=== PATIENT | female | born 2005 | race Caucasian/White ===

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

== ENCOUNTER 2023-09-03 10:56 | Emergency (ER) | payer BC, MEDICAID, OTHER ==
[2023-09-03] MEDS ORDERED: METOCLOPRAMIDE 5 MG/ML 2 ML VIAL IVP STA (11:19)
[2023-09-03] MEDS ORDERED: FAMOTIDINE 20 MG/2 ML VIAL IV STA (11:19)
[2023-09-03] MEDS ORDERED: SODIUM CHLORIDE 0.9% 500 ML 500 ML IV STA (11:19)
[2023-09-03] MEDS ORDERED: SODIUM CHLORIDE 0.9% 1,000 ML IV STA (11:19)
[2023-09-03] MEDS ORDERED: KETOROLAC 15 MG/ML 1 ML VIAL IVP STA (11:19)
[2023-09-03] MEDS ORDERED: diphenhydrAMINE 50 MG/ML 1 ML VIAL IVP STA (11:19)
--- NOTE | 2023-09-03 11:45 | ED ---
Nausea/Vomiting/Diarrhea HPI - General Chief complaint: Nausea/Vomiting/Diarrhea Stated complaint: throwing up about 5 days Time Seen by Provider: 09/03/23 11:03 Source: patient, RN notes reviewed Mode of arrival: ambulatory Limitations: no limitations - History of Present Illness Initial comments: 18-year-old female presents emergency Department chief complaint nausea vomiting 4-5 days. Patient states that this recurrent issue. Patient states that she's never had a EGD. She went of mild epigastric pain but states this only started with nausea vomiting. Pain started after several episodes of emesis denies any hematemesis or coffee-ground emesis denies any melanotic stools denies any chance denies chest pain or any other associated symptoms - Related Data Home Medications Medication Instructions Recorded Confirmed OLANZapine ODT [ZyPREXA ZYDIS] 5 mg PO BID 10/19/21 10/19/21 Previous Rx's Medication Instructions Recorded Prochlorperazine [Compazine] 10 mg PO Q6H #15 tab 09/03/23 Allergies Allergy/AdvReac Type Severity Reaction Status Date / Time Milk Containing Products AdvReac Diarrhea Verified 09/03/23 11:02 (Dairy) [Dairy] Review of Systems ROS Statement: Those systems with pertinent positive or pertinent negative responses have been documented in the HPI. ROS Other: All systems not noted in ROS Statement are negative. Past Medical History Past Medical History: No Reported History, Asthma History of Any Multi-Drug Resistant Organisms: None Reported Past Surgical History: Tonsillectomy Additional Past Anesthesia/Blood Transfusion Reaction / Comment(s): NO PROBLEMS WITH ANESTHESIA Past Psychological History: No Psychological Hx Reported, ADD/ADHD Smoking Status: Never smoker, Vaper Past Alcohol Use History: Occasional Past Drug Use History: Marijuana - Past Family History Mother Family Medical History: No Reported History Father Family Medical History: No Reported History General Exam Limitations: no limitations General appearance: alert, in no apparent distress Head exam: Present: atraumatic, normocephalic, normal inspection Eye exam: Present: normal appearance, PERRL, EOMI. Absent: scleral icterus, conjunctival injection, periorbital swelling ENT exam: Present: normal exam, normal oropharynx, mucous membranes moist Neck exam: Present: normal inspection, full ROM. Absent: tenderness, meningismus, lymphadenopathy Respiratory exam: Present: normal lung sounds bilaterally. Absent: respiratory distress, wheezes, rales, rhonchi, stridor Cardiovascular Exam: Present: regular rate, normal rhythm, normal heart sounds. Absent: systolic murmur, diastolic murmur, rubs, gallop, clicks GI/Abdominal exam: Present: soft, tenderness (Epigastric), normal bowel sounds. Absent: distended, guarding, rebound, rigid Back exam: Absent: CVA tenderness (R), CVA tenderness (L) Neurological exam: Present: alert Course Vital Signs 09/03/23 09/03/23 09/03/23 10:59 11:42 14:08 Temperature 98.2 F 98.1 F Pulse Rate 62 59 L 53 L Respiratory 20 18 Rate Blood Pressure 129/85 129/84 132/85 O2 Sat by Pulse 99 99 Oximetry Medical Decision Making - Medical Decision Making Was pt. sent in by a medical professional or institution (, PA, ADVISOR [employer], urgent care, hospital, or shelter...) When possible be specific @ -No Did you speak to anyone other than the patient for history (EMS, parent, family, police, friend...)? What history was obtained from this source @ -No Did you review nursing and triage notes (agree or disagree)? Why? @ -I reviewed and agree with nursing and triage notes Were old charts reviewed (outside hosp., previous admission, EMS record, old EKG, old radiological studies, urgent care reports/EKG's, shelter records)? Report findings @ -Reviewed prior laboratory studies Differential Diagnosis (chest pain, altered mental status, abdominal pain women, abdominal pain men, vaginal bleeding, weakness, fever, dyspnea, syncope, headache, dizziness, GI bleed, back pain, seizure, CVA, palpatations, mental health, musculoskeletal)? @ -Differential Abdominal Pain Women: Appendicitis, Cholecystitis, diverticulosis, ischemic bowel, pancreatitis, hepatitis, UTI, gastroenteritis, AAA, incarcerated hernia, bowel obstruction, constipation, inflammatory bowel, hepatitis, peptic ulcer disease, splenic infar ction, perforated viscus, vulvitis, ovarian torsion, PID, kidney stone, placenta abruption, this is not meant to be an all-inclusive list EKG interpreted by me (3pts min.). @ -Discharged X-rays interpreted by me (1pt min.). @ -None done CT interpreted by me (1pt min.). @ -None done U/S interpreted by me (1pt. min.). @ -None done What testing was considered but not performed or refused? (CT, X-rays, U/S, labs)? Why? @ -Considered CT though patient has no localized abdominal pain What meds were considered but not given or refused? Why? @ -None Did you discuss the management of the patient with other professionals (professionals i.e. Dr., PA, [employer], lab, RT, psych nurse, mental health social worker, spindle setter, teacher, gift officer, rehabilitation caseworker)? Give summary @ -No Was smoking cessation discussed for >3mins.? @ -No Was critical care preformed (if so, how long)? @ -No Were there social determinants of health that impacted care today? How? (Homeles sness, low income, unemployed, alcoholism, drug addiction, transportation, low edu. Level, literacy, decrease access to med. care, senior care, rehab)? @ -No Was there de-escalation of care discussed even if they declined (Discuss DNR or withdrawal of care, Hospice)? DNR status @ -No What co-morbidities impacted this encounter? (DM, HTN, Smoking, COPD, CAD, Cancer, CVA, ARF, Chemo, Hep., AIDS, mental health diagnosis, sleep apnea, morbid obesity)? @ -Marijuana use Was patient admitted / discharged? Hospital course, mention meds given and route, prescriptions, significant lab abnormalities, going to OR and other pertinent info. @ -[Discharge patient was well hydrated, given antiemetics vomiting has subsided. We discussed this may related to marijuana use as this is a recurrent ongoing issue. She will follow-up with GI she is advised to discontinue marijuana use. Undiagnosed new problem with uncertain prognosis? @ -No Drug Therapy requiring intensive monitoring for toxicity (Heparin, Nitro, Insulin, Cardizem)? @ -No Were any procedures done? @ -No Diagnosis/symptom? @ -Nausea vomiting Acute, or Chronic, or Acute on Chronic? @ -Acute Uncomplicated (without systemic symptoms) or Complicated (systemic symptoms)? @ -Uncomplicated Side effects of treatment? @ -No Exacerbation, Progression, or Severe Exacerbation? @ -No Poses a threat to life or bodily function? How? (Chest pain, [place], [place], pneumonia, PE, COPD, DKA, ARF, appy, cholecystitis, CVA, Diverticulitis, Homicidal, Suicidal, threat to staff... and all critical care pts) @ -No - Lab Data Result diagrams: 09/03/23 11:21 09/03/23 11:21 Lab Results 09/03/23 09/03/23 09/03/23 Range/Units 11:21 11:21 11:21 WBC 13.3 H (4.0-11.0) k/uL RBC 5.31 (3.80-5.40) m/uL Hgb 16.2 H (11.4-16.0) gm/dL Hct 49.1 H (34.0-46.0) % MCV 92.4 (80.0-100.0) fL MCH 30.4 (25.0-35.0) pg MCHC 32.9 (31.0-37.0) g/dL RDW 13.6 (11.5-15.5) % Plt Count 239 (150-450) k/uL MPV 9.1 Neutrophils % 84 % Lymphocytes % 10 % Monocytes % 4 % Eosinophils % 0 % Basophils % 0 % Neutrophils # 11.1 H (1.3-7.7) k/uL Lymphocytes # 1.3 (1.0-4.8) k/uL Monocytes # 0.5 (0-1.0) k/uL Eosinophils # 0.0 (0-0.7) k/uL Basophils # 0.0 (0-0.2) k/uL Sodium (137-145) mmol/L Potassium (3.5-5.1) mmol/L Chloride (98-107) mmol/L Carbon Dioxide (22-30) mmol/L Anion Gap mmol/L BUN (7-17) mg/dL Creatinine (0.52-1.04) mg/dL Est GFR (CKD-EPI)AfAm (>60 ml/min/1.73 sqM) Est GFR (CKD-EPI)NonAf (>60 ml/min/1.73 sqM) Glucose (74-99) mg/dL Calcium (8.4-10.2) mg/dL Total Bilirubin (0.2-1.3) mg/dL AST (14-36) U/L ALT (4-34) U/L Alkaline Phosphatase (38-126) U/L Total Protein (6.3-8.2) g/dL Albumin (3.5-5.0) g/dL Lipase (23-300) U/L Urine Color Yellow Urine Appearance Turbid H (Clear) Urine pH 8.0 (5.0-8.0) Ur Specific [place] 1.033 (1.001-1.035) Urine Protein 1+ H (Negative) Urine Glucose (UA) Negative (Negative) Urine Ketones 2+ H (Negative) Urine Blood Negative (Negative) Urine Nitrite Negative (Negative) Urine Bilirubin Negative (Negative) Urine Urobilinogen 3.0 (<2.0) mg/dL Ur Leukocyte Esterase Large H (Negative) Urine RBC 11 H (0-5) /hpf Urine WBC 81 H (0-5) /hpf Ur Squamous Epith Cells 48 H (0-4) /hpf Amorphous Sediment Moderate H (None) /hpf Urine Bacteria Few H (None) /hpf Urine Mucus Few H (None) /hpf Urine HCG, Qual Not Detected (Not Detectd) 09/03/23 Range/Units 11:21 WBC (4.0-11.0) k/uL RBC (3.80-5.40) m/uL Hgb (11.4-16.0) gm/dL Hct (34.0-46.0) % MCV (80.0-100.0) fL MCH (25.0-35.0) pg MCHC (31.0-37.0) g/dL RDW (11.5-15.5) % Plt Count (150-450) k/uL MPV Neutrophils % % Lymphocytes % % Monocytes % % Eosinophils % % Basophils % % Neutrophils # (1.3-7.7) k/uL Lymphocytes # (1.0-4.8) k/uL Monocytes # (0-1.0) k/uL Eosinophils # (0-0.7) k/uL Basophils # (0-0.2) k/uL Sodium 141 (137-145) mmol/L Potassium 4.3 (3.5-5.1) mmol/L Chloride 102 (98-107) mmol/L Carbon Dioxide 26 (22-30) mmol/L Anion Gap 13 mmol/L BUN 12 (7-17) mg/dL Creatinine 0.72 (0.52-1.04) mg/dL Est GFR (CKD-EPI)AfAm >90 (>60 ml/min/1.73 sqM) Est GFR (CKD-EPI)NonAf >90 (>60 ml/min/1.73 sqM) Glucose 110 H (74-99) mg/dL Calcium 10.1 (8.4-10.2) mg/dL Total Bilirubin 0.6 (0.2-1.3) mg/dL AST 19 (14-36) U/L ALT 17 (4-34) U/L Alkaline Phosphatase 96 (38-126) U/L Total Protein 7.9 (6.3-8.2) g/dL Albumin 4.9 (3.5-5.0) g/dL Lipase 67 (23-300) U/L Urine Color Urine Appearance (Clear) Urine pH (5.0-8.0) Ur Specific [place] (1.001-1.035) Urine Protein (Negative) Urine Glucose (UA) (Negative) Urine Ketones (Negative) Urine Blood (Negative) Urine Nitrite (Negative) Urine Bilirubin (Negative) Urine Urobilinogen (<2.0) mg/dL Ur Leukocyte Esterase (Negative) Urine RBC (0-5) /hpf Urine WBC (0-5) /hpf Ur Squamous Epith Cells (0-4) /hpf Amorphous Sediment (None) /hpf Urine Bacteria (None) /hpf Urine Mucus (None) /hpf Urine HCG, Qual (Not Detectd) Disposition Clinical Impression: Nausea & vomiting Disposition: HOME SELF-CARE Condition: Stable Instructions (If sedation given, give patient instructions): Acute Nausea and Vomiting (ED) Additional Instructions: Please return to the Emergency Department if symptoms worsen or any other concerns. Prescriptions: Prochlorperazine [Compazine] 10 mg PO Q6H #15 tab Is patient prescribed a controlled substance at d/c from ED?: No Referrals: Carolann Page [Primary Care Provider] - 1-2 days Lorraine Ross MD [STAFF PHYSICIAN] - 1-2 days Time of Disposition: 14:44
[2023-09-03 11:54] LABS: Basophils % (A) 0 %; Eosinophils % (A) 0 %; HCT 49.1 % (34.0-46.0); HGB 16.2 gm/dL (11.4-16.0); Lymphocytes # (A) 1.3 k/uL (1.0-4.8); Lymphocytes % (A) 10 %; MCH 30.4 pg (25.0-35.0); MCHC 32.9 g/dL (31.0-37.0); MCV 92.4 fL (80.0-100.0); Mean Platelet Volume 9.1; Monocytes # (A) 0.5 k/uL (0-1.0); Monocytes % (A) 4 %; Neutrophils # (A) 11.1 k/uL (1.3-7.7); Neutrophils % (A) 84 %; Platelet Count 239 k/uL (150-450); RBC 5.31 m/uL (3.80-5.40); RDW 13.6 % (11.5-15.5); WBC 13.3 k/uL (4.0-11.0)
[2023-09-03 11:55] VITALS: TEMP 98.1
[2023-09-03 12:02] LABS: Amorphous Sediment,Urine Moderate /hpf; Appearance,Urine Turbid (Clear); Bacteria,Urine Few /hpf; Bilirubin,Urine Negative (Negative); Blood,Urine Negative (Negative); Color,Urine Yellow; Glucose,Urine (UA) Negative (Negative); Ketones,Urine 2+ (Negative); Leukocyte Esterase,Urine Large (Negative); Mucus,Urine Few /hpf; Nitrite,Urine Negative (Negative); Protein,Urine 1+ (Negative); RBC,Urine 11 /hpf (0-5); Specific Gravity,Urine 1.033 (1.001-1.035); Squamous Epithelial Cell,Urine 48 /hpf (0-4); WBC,Urine 81 /hpf (0-5)
[2023-09-03 12:09] LABS: ALT 17 U/L (4-34); AST 19 U/L (14-36); African American GFR (CKD) >90 (>60 ml/min/1.73 sqM); Albumin 4.9 g/dL (3.5-5.0); Alkaline Phosphatase 96 U/L (38-126); Anion Gap 13 mmol/L; Blood Urea Nitrogen 12 mg/dL (7-17); Calcium 10.1 mg/dL (8.4-10.2); Carbon Dioxide 26 mmol/L (22-30); Chloride 102 mmol/L (98-107); Glucose 110 mg/dL (74-99); Lipase 67 U/L (23-300); Non-African American GFR(CKD) >90 (>60 ml/min/1.73 sqM); Potassium 4.3 mmol/L (3.5-5.1); Sodium 141 mmol/L (137-145); Total Bilirubin 0.6 mg/dL (0.2-1.3); Total Protein 7.9 g/dL (6.3-8.2)
[2023-09-03] MEDS ORDERED: droPERidol 5 MG/2 ML VIAL IVP ONE (13:52)
[2023-09-03 15:09] VITALS: BP 122/79; PULSE 85; RESP 16
== END 2023-09-03 15:06 | disposition home or self-care (01) ==
LOC: EC 10:56
DX: R11.2 Nausea with vomiting, unspecified (principal); J45.909 Unspecified asthma, uncomplicated; F90.9 Attention-deficit hyperactivity disorder, unspecified type; F17.290 Nicotine dependence, other tobacco product, uncomplicated; F12.90 Cannabis use, unspecified, uncomplicated; Z79.899 Other long term (current) drug therapy; Z91.011 Allergy to milk products
CPT/HCPCS: 36415; 80053; 83690; 85025; 81001; 81025; 99284; 96374; 96375 ×4; 96361; J1200; J2765; J3490; J1885; J1790

== ENCOUNTER 2023-09-15 20:11 | Inpatient (IN) | payer MEDICAID, OTHER ==
--- NOTE | 2023-09-15 21:42 | ED ---
General Adult HPI <Claudy Urban - Last Filed: 09/16/23 01:48> <Jt Pierre - Last Filed: 09/16/23 16:16> - General Source: patient, RN notes reviewed Mode of arrival: EMS <Inna Lou - Last Filed: 09/20/23 17:40> - General Chief complaint: Psychiatric Symptoms Stated complaint: Anxiety Time Seen by Provider: 09/15/23 20:24 - History of Present Illness Initial comments: 18-year-old female presents to the emergency department for sleeplessness x3 days. She states that she has not slept in multiple days and states "I feel like I am going to crash soon." Patient is hyperverbal in the room. She is concerned because she is and would like her baby to be checked out. She states that she believes she is around 4 weeks . Patient does have a history of bipolar disorder and was previously hospitalized for an episode similar to what she is experiencing today. She is currently not on any medications for her mental health. Denies fever, chills, nausea, abdominal pain, vaginal bleeding, cramping. (Inna Lou) - Related Data Home Medications Medication Instructions Recorded Confirmed Famotidine [Pepcid] 20 mg PO BID 09/16/23 09/16/23 Ondansetron Odt [Zofran Odt] 4 mg PO DAILY 09/16/23 09/16/23 cefUROXime axetiL [Ceftin] 500 mg PO DIRECTED 09/16/23 09/16/23 Allergies Allergy/AdvReac Type Severity Reaction Status Date / Time Milk Containing Products AdvReac Diarrhea Verified 09/03/23 11:02 (Dairy) [Dairy] Review of Systems ROS Other: All systems not noted in ROS Statement are negative. <Claudy Urban - Last Filed: 09/16/23 01:48> ROS Other: All systems not noted in ROS Statement are negative. <Jt Pierre - Last Filed: 09/16/23 16:16> ROS Other: All systems not noted in ROS Statement are negative. <Inna Lou - Last Filed: 09/20/23 17:40> ROS Statement: Those systems with pertinent positive or pertinent negative responses have been documented in the HPI. Past Medical History Past Medical History: No Reported History, Asthma History of Any Multi-Drug Resistant Organisms: None Reported Past Surgical History: Tonsillectomy Additional Past Anesthesia/Blood Transfusion Reaction / Comment(s): NO PROBLEMS WITH ANESTHESIA Past Psychological History: No Psychological Hx Reported, ADD/ADHD Smoking Status: Never smoker, Vaper Past Alcohol Use History: Occasional Past Drug Use History: Marijuana - Past Family History Mother Family Medical History: No Reported History Father Family Medical History: No Reported History <Inna Lou - Last Filed: 09/20/23 17:40> General Exam General appearance: anxious, other (hyperverbal) Head exam: Present: atraumatic, normocephalic, normal inspection Eye exam: Present: normal appearance, PERRL, EOMI. Absent: scleral icterus, con junctival injection, periorbital swelling ENT exam: Present: normal exam, mucous membranes moist Neck exam: Present: normal inspection. Absent: tenderness, meningismus, lymphadenopathy Respiratory exam: Present: normal lung sounds bilaterally. Absent: respiratory distress, wheezes, rales, rhonchi, stridor Cardiovascular Exam: Present: regular rate, normal rhythm, normal heart sounds. Absent: systolic murmur, diastolic murmur, rubs, gallop, clicks GI/Abdominal exam: Present: soft, normal bowel sounds. Absent: distended, tenderness, guarding, rebound, rigid Psychiatric exam: Present: manic Skin exam: Present: warm, dry, intact, normal color. Absent: rash <Inna Lou - Last Filed: 09/20/23 17:40> Course Vital Signs 09/15/23 09/16/23 09/17/23 20:17 07:42 10:00 Temperature 99.3 F 98.5 F Pulse Rate 136 H 53 L 68 Pulse Rate [ Left] Respiratory 21 26 H 16 Rate Blood Pressure 151/67 144/75 110/60 Blood Pressure [Left Arm] O2 Sat by Pulse 100 98 98 Oximetry 09/17/23 09/17/23 09/17/23 13:00 15:00 18:35 Temperature Pulse Rate 86 86 120 H Pulse Rate [ Left] Respiratory 20 16 20 Rate Blood Pressure 110/60 110/60 155/88 Blood Pressure [Left Arm] O2 Sat by Pulse 98 98 98 Oximetry 09/18/23 09/18/23 09/18/23 00:00 13:00 14:57 Temperature 98.1 F 98.5 F 98.3 F Pulse Rate 106 H 118 H Pulse Rate [ 108 H Left] Respiratory 18 16 18 Rate Blood Pressure 142/94 132/82 Blood Pressure 135/78 [Left Arm] O2 Sat by Pulse 97 100 99 Oximetry 09/19/23 08:00 Temperature Pulse Rate 114 H Pulse Rate [ Left] Respiratory 20 Rate Blood Pressure 131/87 Blood Pressure [Left Arm] O2 Sat by Pulse 98 Oximetry Procedures - Restraint - Face to Face Restraint Occurrence 1 Patient's Immediate Situation: Endangers self safety, Endangers others' safety, Endangers staff safety Patient's Reaction to the Intervention: Uncooperative, Hostile, Belligerent Patient's Medical & Behavioral Condition: Awake, Alert Need to Continue or Terminate Restraint or Seclusion: Continue Face to Face Eval of Restraint Date: 09/16/23 Face to Face Eval of Restraint Time: 22:20 <Claudy Urban - Last Filed: 09/16/23 01:48> Medical Decision Making - Lab Data Result diagrams: 09/16/23 01:09 <Claudy Urban - Last Filed: 09/16/23 01:48> - Lab Data Result diagrams: 09/16/23 01:09 09/16/23 01:09 <Jt Pierre - Last Filed: 09/16/23 16:16> - Lab Data Result diagrams: 09/20/23 10:06 09/20/23 10:06 <Inna Lou - Last Filed: 09/20/23 17:40> - Medical Decision Making I was notified by EPS the patient is awaiting specialized placement and a facility at [facility] that can handle manic patient's. Patient is a mental health hold until that time. (Jt Pierre) Was pt. sent in by a medical professional or institution (, PA, HEAD OF HUMAN RESOURCES, urgent care, hospital, or penitentiary...) When possible be specific @ -[No] Did you speak to anyone other than the patient for history (EMS, parent, family, police, friend...)? What history was obtained from this source @ -[No] Did you review nursing and triage notes (agree or disagree)? Why? @ -[I reviewed and agree with nursing and triage notes] Were old charts reviewed (outside hosp., previous admission, EMS record, old EKG, old radiological studies, urgent care reports/EKG's, penitentiary records)? Report findings @ -[No old charts were reviewed] Differential Diagnosis (chest pain, altered mental status, abdominal pain women, abdominal pain men, vaginal bleeding, weakness, fever, dyspnea, syncope, headache, dizziness, GI bleed, back pain, seizure, CVA, palpatations, mental health, musculoskeletal)? @ -[Differential Mental Health Depression, anxiety, bipolar, psychosis, schizophrenia, borderline personality, situational depression, adjustment disorder, behavioral disorder, brain tumor, malingering, substance abuse, encephalopathy, medication reaction, dementia, hypothyroidism, degenerative neurologic disorder, lupus.... This is not meant to be all-inclusive list] EKG interpreted by me (3pts min.). @ -[none] X-rays interpreted by me (1pt min.). @ -[None done] CT interpreted by me (1pt min.). @ -[None done] U/S interpreted by me (1pt. min.). @ -[None done] What testing was considered but not performed or refused? (CT, X-rays, U/S, labs)? Why? @ -[None] What meds were considered but not given or refused? Why? @ -[None] Did you discuss the management of the patient with other professionals (professionals i.e. , PA, HEAD OF HUMAN RESOURCES, lab, RT, psych nurse, social media content specialist, flume worker, teacher, textile technical officer, case aide)? Give summary @ -[EPS] Was smoking cessation discussed for >3mins.? @ -[No] Was critical care preformed (if so, how long)? @ -[No] Were there social determinants of health that impacted care today? How? (Homelessness, low income, unemployed, alcoholism, drug addiction, transportation, low edu. Level, literacy, decrease access to med. care, [place] [facility], rehab)? @ -[No] Was there de-escalation of care discussed even if they declined (Discuss DNR or withdrawal of care, Hospice)? DNR status @ -[No] What co-morbidities impacted this encounter? (DM, HTN, Smoking, COPD, CAD, Cancer, CVA, ARF, Chemo, Hep., AIDS, mental health diagnosis, sleep apnea, morbid obesity)? @ -[None] Was patient admitted / discharged? Hospital course, mention meds given and route, prescriptions, significant lab abnormalities, going to OR and other pertinent info. @ -[Patient presented to the emergency department for hyper activity, sleeplessness for the past 3-4 days. She has had a history of bipolar disorder and is not currently medicated. Patient states that she is around 4 weeks . She denies vaginal bleeding, cramping. Patient was given Benadryl and Haldol at the recommendation of the psychiatrist. Patient was evaluated by EPS nurse Sunshine who was working on transferring the patient to [facility] for jose care. ] Undiagnosed new problem with uncertain prognosis? @ -[No] Drug Therapy requiring intensive monitoring for toxicity (Heparin, Nitro, Insulin, Cardizem)? @ -[No] Were any procedures done? @ -[No] Diagnosis/symptom? @ -[acute jose] Acute, or Chronic, or Acute on Chronic? @ -[default] Uncomplicated (without systemic symptoms) or Complicated (systemic symptoms)? @ -[default] Side effects of treatment? @ -[No] Exacerbation, Progression, or Severe Exacerbation? @ -[No] Poses a threat to life or bodily function? How? (Chest pain, USA, MS, pneumonia, PE, COPD, DKA, ARF, appy, cholecystitis, CVA, Diverticulitis, Homicidal, Suicidal, threat to staff... and all critical care pts) @ -[No] (Inna Lou) - Lab Data Lab Results 09/15/23 09/15/23 09/16/23 Range/Units 23:46 23:46 01:09 WBC 19.5 H (4.0-11.0) k/uL RBC 4.69 (3.80-5.40) m/uL Hgb 14.5 (11.4-16.0) gm/dL Hct 42.6 (34.0-46.0) % MCV 90.9 (80.0-100.0) fL MCH 31.0 (25.0-35.0) pg MCHC 34.2 (31.0-37.0) g/dL RDW 13.3 (11.5-15.5) % Plt Count 188 (150-450) k/uL MPV 8.8 Neutrophils % 90 % Lymphocytes % 5 % Monocytes % 4 % Eosinophils % 0 % Basophils % 0 % Neutrophils # 17.6 H (1.3-7.7) k/uL Lymphocytes # 1.1 (1.0-4.8) k/uL Monocytes # 0.7 (0-1.0) k/uL Eosinophils # 0.0 (0-0.7) k/uL Basophils # 0.0 (0-0.2) k/uL Sodium (137-145) mmol/L Potassium (3.5-5.1) mmol/L Chloride (98-107) mmol/L Carbon Dioxide (22-30) mmol/L Anion Gap mmol/L BUN (7-17) mg/dL Creatinine (0.52-1.04) mg/dL Est GFR (CKD-EPI)AfAm (>60 ml/min/1.73 sqM) Est GFR (CKD-EPI)NonAf (>60 ml/min/1.73 sqM) Glucose (74-99) mg/dL Calcium (8.4-10.2) mg/dL Total Bilirubin (0.2-1.3) mg/dL AST (14-36) U/L ALT (4-34) U/L Alkaline Phosphatase (38-126) U/L Total Protein (6.3-8.2) g/dL Albumin (3.5-5.0) g/dL Urine Color yel Urine Appearance Cloudy H (Clear) Urine pH 5.5 (5.0-8.0) Ur Specific [place] >1.030 (1.001-1.035) Urine Protein 1+ H (Negative) Urine Glucose (UA) 3+ H (Negative) Urine Ketones 2+ H (Negative) Urine Blood Negative (Negative) Urine Nitrite Negative (Negative) Urine Bilirubin Negative (Negative) Urine Urobilinogen <2.0 (<2.0) mg/dL Ur Leukocyte Esterase Large (Negative) Urine RBC 23 H (0-5) /hpf Urine WBC 18 H (0-5) /hpf Ur Squamous Epith Cells 30 H (0-4) /hpf Urine Bacteria Rare H (None) /hpf Hyaline Casts 2 (0-2) /lpf Urine Mucus Occasional H (None) /hpf Urine HCG, Qual Detected (Not Detectd) Urine Opiates Screen Not Detected (NotDetected) Ur Oxycodone Screen Not Detected (NotDetected) Urine Methadone Screen Not Detected (NotDetected) Ur Propoxyphene Screen Not Detected (NotDetected) Ur Barbiturates Screen Not Detected (NotDetected) U Tricyclic Antidepress Not Detected (NotDetected) Ur Phencyclidine Scrn Not Detected (NotDetected) Ur Amphetamines Screen Not Detected (NotDetected) U Methamphetamines Scrn Not Detected (NotDetected) U Benzodiazepines Scrn Not Detected (NotDetected) Urine Cocaine Screen Not Detected (NotDetected) U Marijuana (THC) Screen Detected H (NotDetected) Coronavirus (PCR) (Not Detectd) 09/16/23 09/18/23 09/18/23 Range/Units 01:09 11:32 15:31 WBC (4.0-11.0) k/uL RBC (3.80-5.40) m/uL Hgb (11.4-16.0) gm/dL Hct (34.0-46.0) % MCV (80.0-100.0) fL MCH (25.0-35.0) pg MCHC (31.0-37.0) g/dL RDW (11.5-15.5) % Plt Count (150-450) k/uL MPV Neutrophils % % Lymphocytes % % Monocytes % % Eosinophils % % Basophils % % Neutrophils # (1.3-7.7) k/uL Lymphocytes # (1.0-4.8) k/uL Monocytes # (0-1.0) k/uL Eosinophils # (0-0.7) k/uL Basophils # (0-0.2) k/uL Sodium 136 L (137-145) mmol/L Potassium 3.9 (3.5-5.1) mmol/L Chloride 105 (98-107) mmol/L Carbon Dioxide 15 L (22-30) mmol/L Anion Gap 16 mmol/L BUN 8 (7-17) mg/dL Creatinine 0.59 (0.52-1.04) mg/dL Est GFR (CKD-EPI)AfAm >90 (>60 ml/min/1.73 sqM) Est GFR (CKD-EPI)NonAf >90 (>60 ml/min/1.73 sqM) Glucose 140 H (74-99) mg/dL Calcium 9.3 (8.4-10.2) mg/dL Total Bilirubin 0.6 (0.2-1.3) mg/dL AST 35 (14-36) U/L ALT 23 (4-34) U/L Alkaline Phosphatase 75 (38-126) U/L Total Protein 6.9 (6.3-8.2) g/dL Albumin 4.4 (3.5-5.0) g/dL Urine Color Colorless Urine Appearance Cloudy H (Clear) Urine pH 6.0 (5.0-8.0) Ur Specific [place] 1.012 (1.001-1.035) Urine Protein Negative (Negative) Urine Glucose (UA) Negative (Negative) Urine Ketones 1+ H (Negative) Urine Blood Negative (Negative) Urine Nitrite Negative (Negative) Urine Bilirubin Negative (Negative) Urine Urobilinogen <2.0 (<2.0) mg/dL Ur Leukocyte Esterase Large H (Negative) Urine RBC 17 H (0-5) /hpf Urine WBC 84 H (0-5) /hpf Ur Squamous Epith Cells 16 H (0-4) /hpf Urine Bacteria Rare H (None) /hpf Hyaline Casts (0-2) /lpf Urine Mucus Occasional H (None) /hpf Urine HCG, Qual (Not Detectd) Urine Opiates Screen (NotDetected) Ur Oxycodone Screen (NotDetected) Urine Methadone Screen (NotDetected) Ur Propoxyphene Screen (NotDetected) Ur Barbiturates Screen (NotDetected) U Tricyclic Antidepress (NotDetected) Ur Phencyclidine Scrn (NotDetected) Ur Amphetamines Screen (NotDetected) U Methamphetamines Scrn (NotDetected) U Benzodiazepines Scrn (NotDetected) Urine Cocaine Screen (NotDetected) U Marijuana (THC) Screen (NotDetected) Coronavirus (PCR) Not Detected (Not Detectd) Disposition <Claudy Urban - Last Filed: 09/16/23 01:48> <Jt Pierre - Last Filed: 09/16/23 16:16> <Inna Lou - Last Filed: 09/20/23 17:40> Clinical Impression: Jose, Disposition: ADMITTED IP TO THIS HOSP Condition: Stable
[2023-09-15] MEDS ORDERED: diphenhydrAMINE 50 MG/ML 1 ML VIAL IM ONE (21:50)
[2023-09-15] MEDS ORDERED: HALOPERIDOL LACTATE 5 MG/ML 1 ML VIAL IM ONE (21:50)
[2023-09-16 00:33] LABS: Appearance,Urine Cloudy (Clear); PH, Urine 5.5 (5.0-8.0); Protein,Urine 1+ (Negative); Specific Gravity,Urine >1.030 (1.001-1.035)
[2023-09-16 00:34] LABS: Glucose,Urine (UA) 3+ (Negative)
[2023-09-16 00:35] LABS: Bilirubin,Urine Negative (Negative); Blood,Urine Negative (Negative); Ketones,Urine 2+ (Negative); Leukocyte Esterase,Urine Large (Negative); Nitrite,Urine Negative (Negative); Urobilinogen,Urine <2.0 mg/dL (<2.0)
[2023-09-16 00:43] LABS: Bacteria,Urine Rare /hpf; Hyaline Casts,Urine 2 /lpf (0-2); Mucus,Urine Occasional /hpf; RBC,Urine 23 /hpf (0-5); Squamous Epithelial Cell,Urine 30 /hpf (0-4); WBC,Urine 18 /hpf (0-5)
[2023-09-16] MEDS ORDERED: SODIUM CHLORIDE 0.9% 1,000 ML IV ONE (00:56)
[2023-09-16 01:00] LABS: Amphetamine Screen,Urine Not Detected (NotDetected); Barbiturate Screen,Urine Not Detected (NotDetected); Benzodiazepines Screen,Urine Not Detected (NotDetected); Cocaine Screen,Urine Not Detected (NotDetected); Methadone Screen, Urine Not Detected (NotDetected); Opiate Screen,Urine Not Detected (NotDetected); Oxycodone Screen, Urine Not Detected (NotDetected); Phencyclidine Screen,Urine Not Detected (NotDetected); Tricyclic Antidepressant,Urine Not Detected (NotDetected); Urn Cannabinoid Scrn Detected (NotDetected)
[2023-09-16 01:21] LABS: Basophils % (A) 0 %; Eosinophils % (A) 0 %; HCT 42.6 % (34.0-46.0); HGB 14.5 gm/dL (11.4-16.0); Lymphocytes # (A) 1.1 k/uL (1.0-4.8); Lymphocytes % (A) 5 %; MCHC 34.2 g/dL (31.0-37.0); MCV 90.9 fL (80.0-100.0); Mean Platelet Volume 8.8; Monocytes # (A) 0.7 k/uL (0-1.0); Monocytes % (A) 4 %; Neutrophils # (A) 17.6 k/uL (1.3-7.7); Neutrophils % (A) 90 %; Platelet Count 188 k/uL (150-450); RBC 4.69 m/uL (3.80-5.40); RDW 13.3 % (11.5-15.5); WBC 19.5 k/uL (4.0-11.0)
[2023-09-16 02:05] LABS: Chloride 105 mmol/L (98-107)
[2023-09-16 02:08] LABS: ALT 23 U/L (4-34); AST 35 U/L (14-36); African American GFR (CKD) >90 (>60 ml/min/1.73 sqM); Albumin 4.4 g/dL (3.5-5.0); Alkaline Phosphatase 75 U/L (38-126); Anion Gap 16 mmol/L; Blood Urea Nitrogen 8 mg/dL (7-17); Calcium 9.3 mg/dL (8.4-10.2); Carbon Dioxide 15 mmol/L (22-30); Glucose 140 mg/dL (74-99); Non-African American GFR(CKD) >90 (>60 ml/min/1.73 sqM); Potassium 3.9 mmol/L (3.5-5.1); Sodium 136 mmol/L (137-145); Total Bilirubin 0.6 mg/dL (0.2-1.3); Total Protein 6.9 g/dL (6.3-8.2)
[2023-09-18 16:10] LABS: Appearance,Urine Cloudy (Clear); Bacteria,Urine Rare /hpf; Bilirubin,Urine Negative (Negative); Blood,Urine Negative (Negative); Color,Urine Colorless; Glucose,Urine (UA) Negative (Negative); Ketones,Urine 1+ (Negative); Leukocyte Esterase,Urine Large (Negative); Mucus,Urine Occasional /hpf; Nitrite,Urine Negative (Negative); Protein,Urine Negative (Negative); RBC,Urine 17 /hpf (0-5); Specific Gravity,Urine 1.012 (1.001-1.035); Squamous Epithelial Cell,Urine 16 /hpf (0-4); Urobilinogen,Urine <2.0 mg/dL (<2.0); WBC,Urine 84 /hpf (0-5)
[2023-09-18] MEDS ORDERED: CEPHALEXIN 500 MG CAP PO STA (17:21)
[2023-09-18] MEDS: CEPHALEXIN 500 MG CAP PO SCH (21:26)
[2023-09-19] MEDS: CEPHALEXIN 500 MG CAP PO SCH ×3 (09:38→21:31)
[2023-09-19] MEDS ORDERED: MAG HYDROX/AL HYDROX/SIMETH 30 ML CUP PO PRN (13:58)
[2023-09-19] MEDS ORDERED: MAGNESIUM HYDROXIDE 2,400 MG/30 ML CUP PO PRN (13:58)
[2023-09-19] MEDS: QUEtiapine 50 MG TAB PO SCH (21:31)
--- NOTE | 2023-09-20 03:03 | P.PN ---
Progress Note - Text Progress Note Date: 09/19/23 hyperverbal young lady with UTI. she refused evaluation by a male physician and requesting a female provider.
[2023-09-20] MEDS: ACETAMINOPHEN TAB 325 MG TAB PO PRN (08:11)
[2023-09-20] MEDS: CEPHALEXIN 500 MG CAP PO SCH ×3 (08:12→23:07)
[2023-09-20 10:38] LABS: HCT 44.4 % (34.0-46.0); HGB 15.1 gm/dL (11.4-16.0); MCH 31.1 pg (25.0-35.0); MCHC 33.9 g/dL (31.0-37.0); MCV 91.9 fL (80.0-100.0); Mean Platelet Volume 8.5; Platelet Count 281 k/uL (150-450); RBC 4.84 m/uL (3.80-5.40); RDW 13.2 % (11.5-15.5); WBC 12.4 k/uL (4.0-11.0)
[2023-09-20 10:59] LABS: ALT 35 U/L (4-34); AST 29 U/L (14-36); African American GFR (CKD) >90 (>60 ml/min/1.73 sqM); Albumin 4.7 g/dL (3.5-5.0); Alkaline Phosphatase 91 U/L (38-126); Anion Gap 13 mmol/L; Blood Urea Nitrogen 7 mg/dL (7-17); Carbon Dioxide 23 mmol/L (22-30); Chloride 102 mmol/L (98-107); Glucose 98 mg/dL (74-99); Non-African American GFR(CKD) >90 (>60 ml/min/1.73 sqM); Potassium 3.8 mmol/L (3.5-5.1); Sodium 138 mmol/L (137-145); Total Bilirubin 0.7 mg/dL (0.2-1.3); Total Protein 7.7 g/dL (6.3-8.2)
[2023-09-20 11:14] LABS: HCG,Quantitative Serum 2372.7 mIU/mL
--- NOTE | 2023-09-20 12:20 | P.PN ---
Progress Note - Text Progress Note Date: 09/20/23 Was called to evaluate patient this morning with reports that pt needs to be evaluated by a medical provider and requesting a female to evaluate. Upon review of chart it was noted that patient had significant leukocytosis with WBC count of 19.5, positive urine hCG, concerns of possible UTI during and has been having sinus tachycardia ranging up to [address] for EKG, serum hCG quantitative, repeat CBC, CMP, magnesium, and TSH with free T4. Consult also placed to MATCHBOOK [employer]SEM[employer]ER. Upon arrival to bedside to assess patient, [facility] provider was leaving room as he reports he already assess patient as they cover for this patient's PCP (Dr. Page) for [facility]. Did not discontinue his orders as discontinuation of these may delay patient's care. [facility] Hospitalist group to follow up on these orders and all further care of patient. Davi Vuong NP rendered care for this patient independently, reviewed the findings and plan as documented in the note above. I did not physically speak with or examine the patient on this date
--- NOTE | 2023-09-20 13:12 | P.MDCNMH ---
History of Present Illness H&P Date: 09/20/23 History of present illness; patient is a 18-year-old female with past medical s ignificant for bipolar disorder who presented the ER for psychiatric evaluation. Patient stated she has not been able to sleep for last few days. Patient stated that she is going to crash sore. Denies any auditory or visual hallucinations. Denies any thoughts of hurting herself. Patient is talking nonstop. Patient history of bipolar disorder but not currently on any medications. Initial lab work done in the ER showed WBC 12.4 hemoglobin 15.1, platelet count 281, sodium 138, potassium 3.8, BUN 7, creatinine 0.58, UA shows large amount of leukocyte Estrace, urine WBC 84 Urine drug screen positive for marijuana Patient was admitted to inpatient psych REVIEW OF SYSTEMS: CONSTITUTIONAL: No fever, no malaise, no fatigue. HEENT: No recent visual problems or hearing problems. Denied any sore throat. CARDIOVASCULAR: No chest pain, orthopnea, PND, no palpitations, no syncope. PULMONARY: No shortness of breath, no cough, no hemoptysis. GASTROINTESTINAL: No diarrhea, no nausea, no vomiting, no abdominal pain. NEUROLOGICAL: No headaches, no weakness, no numbness. HEMATOLOGICAL: Denies any bleeding or petechiae. GENITOURINARY: Denies any burning micturition, frequency, or urgency. MUSCULOSKELETAL/RHEUMATOLOGICAL: Denies any joint pain, swelling, or any muscle pain. ENDOCRINE: Denies any polyuria or polydipsia. The rest of the 14-point review of systems is negative. PHYSICAL EXAMINATION: GENERAL: The patient is alert and oriented x3, not in any acute distress. Well developed, well nourished. HEENT: Pupils are round and equally reacting to light. EOMI. No scleral icterus. No conjunctival pallor. Normocephalic, atraumatic. No pharyngeal erythema. No thyromegaly. CARDIOVASCULAR: S1 and S2 present. No murmurs, rubs, or gallops. Tachycardic PULMONARY: Chest is clear to auscultation, no wheezing or crackles. ABDOMEN: Soft, nontender, nondistended, normoactive bowel sounds. No palpable organomegaly. MUSCULOSKELETAL: No joint swelling or deformity. EXTREMITIES: No cyanosis, clubbing, or pedal edema. NEUROLOGICAL: Gross neurological examination did not reveal any focal deficits. SKIN: No rashes. Assessment and plan Anxiety UTI Tachycardia Leukocytosis First trimester HX of bipolar disorder Monitor vital signs Monitor CBC Monitor CMP Ordered EKG Continue Keflex for now Check TSH level ORTHOPEDIC PHYSICAL THERAPIST consulted ID consulted Continue psych meds per psychiatry team Labs and medication were reviewed.. Continue same treatment. Continue with symptomatic treatment. Resume home medication. Monitor labs and vitals. DVT and GI prophylaxis. Further recommendations as per clinical course of the patient Dictation was produced using [employer] dictation software. please excuse any grammatical, word or spelling errors. Past Medical History Past Medical History: No Reported History, Asthma History of Any Multi-Drug Resistant Organisms: None Reported Past Surgical History: Tonsillectomy Additional Past Anesthesia/Blood Transfusion Reaction / Comment(s): NO PROBLEMS WITH ANESTHESIA Past Psychological History: No Psychological Hx Reported, ADD/ADHD Smoking Status: Never smoker, Vaper Past Alcohol Use History: Occasional Past Drug Use History: Marijuana - Past Family History Mother Family Medical History: No Reported History Father Family Medical History: No Reported History Medications and Allergies Home Medications Medication Instructions Recorded Confirmed Type Famotidine [Pepcid] 20 mg PO BID 09/16/23 09/16/23 History Ondansetron Odt [Zofran Odt] 4 mg PO DAILY 09/16/23 09/16/23 History cefUROXime axetiL [Ceftin] 500 mg PO DIRECTED 09/16/23 09/16/23 History Allergies Allergy/AdvReac Type Severity Reaction Status Date / Time Milk Containing Products AdvReac Diarrhea Verified 09/03/23 11:02 (Dairy) [Dairy] Physical Exam Vitals: Vital Signs Temp Pulse Resp BP 09/20/23 08:13 97.7 F 129 H 16 145/85 Cranial Nerve Examination - Cranial Nerves Cranial Nerve II- Optic: Intact (Cranial nerves II-12 intact) Cranial Nerve III- Oculomotor: Intact Cranial Nerve IV- Trochlear: Intact Cranial Nerve V- Trigeminal: Intact Cranial Nerve - Abducens: Intact Cranial Nerve VII- Facial: Intact Cranial Nerve VIII- Auditory: Intact Cranial Nerve IX- Glossopharyngeal: Intact Cranial Nerve X- Vagus: Intact Cranial Nerve XI- Accessory: Intact Cranial Nerve XII- Hypoglossal: Intact Results CBC & Chem 7: 09/20/23 10:06 09/20/23 10:06 Labs: Abnormal Lab Results - Last 24 Hours (Table) 09/20/23 09/20/23 Range/Units 10:06 10:06 WBC 12.4 H (4.0-11.0) k/uL ALT 35 H (4-34) U/L
--- NOTE | 2023-09-20 13:33 | P.HP ---
Psychiatric H&P - . H&P Date: 09/20/23 History & Physical: Allergies Allergy/AdvReac Type Severity Reaction Status Date / Time Milk Containing Products AdvReac Diarrhea Verified 09/03/23 11:02 (Dairy) [Dairy] Vital Signs Temp 97.7 F 09/20/23 08:13 Pulse 129 H 09/20/23 08:13 Resp 16 09/20/23 08:13 BP 145/85 09/20/23 08:13 Pulse Ox 98 09/19/23 08:00 FiO2 Laboratory Last Values WBC 12.4 k/uL (4.0-11.0) H 09/20/23 10:06 RBC 4.84 m/uL (3.80-5.40) 09/20/23 10:06 Hgb 15.1 gm/dL (11.4-16.0) 09/20/23 10:06 Hct 44.4 % (34.0-46.0) 09/20/23 10:06 MCV 91.9 fL (80.0-100.0) 09/20/23 10:06 MCH 31.1 pg (25.0-35.0) 09/20/23 10:06 MCHC 33.9 g/dL (31.0-37.0) 09/20/23 10:06 RDW 13.2 % (11.5-15.5) 09/20/23 10:06 Plt Count 281 k/uL (150-450) 09/20/23 10:06 MPV 8.5 09/20/23 10:06 Neutrophils % 90 % 09/16/23 01:09 Lymphocytes % 5 % 09/16/23 01:09 Monocytes % 4 % 09/16/23 01:09 Eosinophils % 0 % 09/16/23 01:09 Basophils % 0 % 09/16/23 01:09 Neutrophils # 17.6 k/uL (1.3-7.7) H 09/16/23 01:09 Lymphocytes # 1.1 k/uL (1.0-4.8) 09/16/23 01:09 Monocytes # 0.7 k/uL (0-1.0) 09/16/23 01:09 Eosinophils # 0.0 k/uL (0-0.7) 09/16/23 01:09 Basophils # 0.0 k/uL (0-0.2) 09/16/23 01:09 Sodium 138 mmol/L (137-145) 09/20/23 10:06 Potassium 3.8 mmol/L (3.5-5.1) 09/20/23 10:06 Chloride 102 mmol/L (98-107) 09/20/23 10:06 Carbon Dioxide 23 mmol/L (22-30) 09/20/23 10:06 Anion Gap 13 mmol/L 09/20/23 10:06 BUN 7 mg/dL (7-17) 09/20/23 10:06 Creatinine 0.58 mg/dL (0.52-1.04) 09/20/23 10:06 Est GFR (CKD-EPI)AfAm >90 (>60 ml/min/1.73 sqM) 09/20/23 10:06 Est GFR (CKD-EPI)NonAf >90 (>60 ml/min/1.73 sqM) 09/20/23 10:06 Glucose 98 mg/dL (74-99) 09/20/23 10:06 Calcium 10.0 mg/dL (8.4-10.2) 09/20/23 10:06 Magnesium 2.0 mg/dL (1.6-2.3) 09/20/23 10:06 Total Bilirubin 0.7 mg/dL (0.2-1.3) 09/20/23 10:06 AST 29 U/L (14-36) 09/20/23 10:06 ALT 35 U/L (4-34) H 09/20/23 10:06 Alkaline Phosphatase 91 U/L (38-126) 09/20/23 10:06 Total Protein 7.7 g/dL (6.3-8.2) 09/20/23 10:06 Albumin 4.7 g/dL (3.5-5.0) 09/20/23 10:06 TSH 1.240 mIU/L (0.465-4.680) 09/20/23 10:06 HCG, Quant 2372.7 mIU/mL 09/20/23 10:06 Urine Color Colorless 09/18/23 15:31 Urine Appearance Cloudy (Clear) H 09/18/23 15:31 Urine pH 6.0 (5.0-8.0) 09/18/23 15:31 Ur Specific [place] 1.012 (1.001-1.035) 09/18/23 15:31 Urine Protein Negative (Negative) 09/18/23 15:31 Urine Glucose (UA) Negative (Negative) 09/18/23 15:31 Urine Ketones 1+ (Negative) H 09/18/23 15:31 Urine Blood Negative (Negative) 09/18/23 15:31 Urine Nitrite Negative (Negative) 09/18/23 15:31 Urine Bilirubin Negative (Negative) 09/18/23 15:31 Urine Urobilinogen <2.0 mg/dL (<2.0) 09/18/23 15:31 Ur Leukocyte Esterase Large (Negative) H 09/18/23 15:31 Urine RBC 17 /hpf (0-5) H 09/18/23 15:31 Urine WBC 84 /hpf (0-5) H 09/18/23 15:31 Ur Squamous Epith Cells 16 /hpf (0-4) H 09/18/23 15:31 Urine Bacteria Rare /hpf (None) H 09/18/23 15:31 Hyaline Casts 2 /lpf (0-2) 09/15/23 23:46 Urine Mucus Occasional /hpf (None) H 09/18/23 15:31 Urine HCG, Qual Detected (Not Detectd) 09/15/23 23:46 Urine Opiates Screen Not Detected (NotDetected) 09/15/23 23:46 Ur Oxycodone Screen Not Detected (NotDetected) 09/15/23 23:46 Urine Methadone Screen Not Detected (NotDetected) 09/15/23 23:46 Ur Propoxyphene Screen Not Detected (NotDetected) 09/15/23 23:46 Ur Barbiturates Screen Not Detected (NotDetected) 09/15/23 23:46 U Tricyclic Antidepress Not Detected (NotDetected) 09/15/23 23:46 Ur Phencyclidine Scrn Not Detected (NotDetected) 09/15/23 23:46 Ur Amphetamines Screen Not Detected (NotDetected) 09/15/23 23:46 U Methamphetamines Scrn Not Detected (NotDetected) 09/15/23 23:46 U Benzodiazepines Scrn Not Detected (NotDetected) 09/15/23 23:46 Urine Cocaine Screen Not Detected (NotDetected) 09/15/23 23:46 U Marijuana (THC) Screen Detected (NotDetected) H 09/15/23 23:46 Coronavirus (PCR) Not Detected (Not Detectd) 09/18/23 11:32 09/20/23 12:31 IDENTIFYING DATA: Patient is a single, employed, 18-year-old female, works as a hairdresser, , lives in a house with her fianc. HPI: Patient presented to the hospital initially on 09/15, with reported poor sleep for the past several days, was hyperverbal, concerned about being for the past 4 weeks. Patient apparently has a history of bipolar disorder. Patient was petitioned by her mother states that "bipolar manic, unable to care for self, may harm self and unborn baby". Patient [employer] is positive for RTC. Patient was seen today and agreeable district scientific writer in the office. Rachel issues of him having a hard time and stressed lately. Claims that she was going to her sister's house to see her. She claims that she had a "panic attack" and was rambling during the conversation, was tangential and circumstantial. Patient also displayed loose associations, flight of ideas and racing thoughts. She spoke about almost having an asthma attack before coming into the hospital. She was fairly preoccupied with her baby and the health of her child. She had fairly poor decision making, was fairly hesitant about taking medications. She claims her sleep has been fairly poor lately, appetite as been fair, states that she was arguing with another patient earlier today, states that she is feeling "tired", denies any depression at this time states that she is feeling somewhat anxious. the patient is not reporting any visual hallucinations or any auditory hallucinations. She is currently not reporting any suicidal or homicidal ideation, intention, and/or plan. She claims that she was smoking marijuana however has stopped recently due to finding out that she was recently . She believes that she is around for 5 weeks into the . She denies any other recreational drug use. PAST PSYCHIATRIC HISTORY: The patient has been previously psychiatrically hospitalized on the mental health unit 2 years ago. Patient was previously placed on Risperdal 1 mg twice a day and did fairly well prior to discharge. The patient has not been on any psychiatric medications recently.patient went to [facility] last in May 2022 however her case is closed. There is no reported prior suicide attempts. PMH: Past Medical History: No Reported History History of Any Multi-Drug Resistant Organisms: None Reported Past Surgical History: Tonsillectomy Additional Past Anesthesia/Blood Transfusion Reaction / Comment(s): NO PROBLEMS WITH ANESTHESIA Past Psychological History: No Psychological Hx Reported Smoking Status: Vaper Past Alcohol Use History: Occasional Past Drug Use History: Marijuana ALLERGIES: Milk containing products CHEMICAL DEPENDENCY HISTORY: As per HPI FAMILY PSYCHIATRIC/SUBSTANCE USE HISTORY: Collateral information was provided to patient's mother. The patient's mother has depression and anxiety. The patient's father has a significant history of bipolar disorder, depression, anxiety, and substance use disorders. SOCIAL HISTORY: Patient is currently living with her fianc, they live in a house, she works as a hairdresser, She lives in [place]. She is currently however has no has no children. Denies any legal history. MENTAL STATUS EXAM: General Appearance: Patient appears to be stated age is alert, directable, and attempts to cooperate. Patient appears to have fair hygiene and grooming. The patient has numerous tattoos and has green hair with glasses. Behavior: Patient is seated without any agitated behavior. Psychomotor activity is elevated. Eye contact is intense. Speech: Patient's speech is fluent, nonlinear, hyperverbal. Intentional Mood/Affect: Patient reports their mood is "tired," affect is bizarre and euphoric. Expansive. Suicidality/Homicidality: Patient denies any suicidal or homicidal ideation, intention, and/or plan. Perceptions: Patient denies any visual hallucinations but she reports auditory hallucinations. Though content/process: The patient is endorsing magical thinking. Genital/circumstantial. with flight of ideas and loose associations. Memory and concentration: Memory and concentration appeared to be fair, patient is difficult to redirect. Alert and oriented 3. Judgment and insight: Poor. STRENGTHS/WEAKNESSES: Strength is that the patient appears to have family support. Weakness is that the patient engages in recreational drug use, poor insight and judgment INTELLECT: average IMPRESSIONS: Bipolar disorder, current episode manic severe Cannabis use disorder PLAN: -Patient is admitted under involuntary status to MHU for stabilization of p sychiatric symptoms and safety. A second certification was completed and along with petition will be filed for court. -Medications : Patient is agreeable to be started on Seroquel 25 mg daily +50 mg daily at bedtime for mood stabilization/psychosis/insomnia. -Seroquel po PRN for agitation/aggression -Patient was counselled on substance abuse and desired to cut back on use -Patient was informed of the risks, benefits and side effects of the medication -Internal Medicine consult to perform medical evaluation and physical. -NRT - not needed as patient does not smoke -SW on board for discharge planning. Encourage patient to participate in groups to work on coping skills. 09/20/23 13:06
[2023-09-20] MEDS: QUEtiapine 25 MG TAB PO SCH (13:46)
--- NOTE | 2023-09-20 15:59 | P.OBCN ---
History of Present Illness Consult date: 09/20/23 Reason for consult: other (, UTI) Chief complaint: History of present illness: This is a 18-year-old 2 para 0010 that was admitted to mental health with positive test and concerns for UTI. Patient denies dysuria or pain with urination. Patient states she just recently found out she was with her primary care doctor Jeanne. She denies bleeding or cramping. She is very hyperverbal with difficulty redirecting to current concerns. SIZE TESTER history Prior miscarriage, she is unwilling to speak of this Current Menstrual history unable to be obtained Review of Systems Constitutional: Denies chills, Denies fatigue, Denies fever Ears, nose, mouth and throat: Denies headache Cardiovascular: Denies leg edema Respiratory: Denies dyspnea Past Medical History Past Medical History: No Reported History, Asthma History of Any Multi-Drug Resistant Organisms: None Reported Past Surgical History: Tonsillectomy Additional Past Anesthesia/Blood Transfusion Reaction / Comm: NO PROBLEMS WITH ANESTHESIA Past Psychological History: No Psychological Hx Reported, ADD/ADHD Smoking Status: Never smoker, Vaper Past Alcohol Use History: Occasional Past Drug Use History: Marijuana - Past Family History Mother Family Medical History: No Reported History Father Family Medical History: No Reported History Medications and Allergies Home Medications Medication Instructions Recorded Confirmed Type Famotidine [Pepcid] 20 mg PO BID 09/16/23 09/16/23 History Ondansetron Odt [Zofran Odt] 4 mg PO DAILY 09/16/23 09/16/23 History cefUROXime axetiL [Ceftin] 500 mg PO DIRECTED 09/16/23 09/16/23 History Allergies Allergy/AdvReac Type Severity Reaction Status Date / Time Milk Containing Products AdvReac Diarrhea Verified 09/03/23 11:02 (Dairy) [Dairy] Exam Osteopathic Statement: *. No significant issues noted on an osteopathic structural exam other than those noted in the History and Physical/Consult. Vital Signs Temp Pulse Resp BP 09/20/23 08:13 97.7 F 129 H 16 145/85 Minimal physical exam is performed on this date, patient was seen in a conference room. Patient is breathing is noted to be nonlabored, she appears comfortable. Results Result Diagrams: 09/20/23 10:06 09/20/23 10:06 Abnormal Lab Results - Last 24 Hours (Table) 09/20/23 09/20/23 Range/Units 10:06 10:06 WBC 12.4 H (4.0-11.0) k/uL ALT 35 H (4-34) U/L Assessment and Plan (1) Current Visit: Yes Status: Acute Code(s): Z34.90 - ENCNTR FOR SUPRVSN OF NORMAL , UNSP, UNSP TRIMESTER SNOMED Code(s): 30571861 (2) UTI (urinary tract infection) Current Visit: Yes Status: Acute Code(s): N39.0 - URINARY TRACT INFECTION, SITE NOT SPECIFIED SNOMED Code(s): 51613425 Plan: 18 yo early , LMP 08/15/2023 (5 weeks 11/26). admitted for panic attacks. UTI will treat with macrobid plan reviewed with pt and questions answered. will follow along, please reach out with any questions.
--- NOTE | 2023-09-20 18:20 | US ---
EXAMINATION TYPE: Transabdominal DATE OF EXAM: 09/20/2023 5:15 PM COMPARISON: NONE CLINICAL INDICATION: Female, 18 years old with history of early first trimester US; EXAM PERFORMED: Transabdominal (TA) EXAM MEASUREMENTS: GESTATIONAL AGE / DATING Physician Established: Not yet established Dates by LMP: (5 weeks/1 days) EDC: 05/21/24 Dates by First Scan: No previous this is first scan Dates by Current Scan for: (5 weeks/1 days) - MSD EDC: 05/21/24 MATERNAL ANATOMY Uterus: 6.6 x 4.6 x 5.1cm Right Ovary: 3.5 x 2.3 x 2.4cm Left Ovary: 2.2 x 2.4 x 1.6cm Post CDS / Adnexa: wnl Presence of free fluid: no Presence of corpus luteal cyst: yes, anechoic area right ovary = 2.4 x 1.9 x 1.8cm Presence of subchorionic bleed: no GESTATION / SURVEY MSD: 0.6cm (5 weeks/1 days) Yolk Sac (normal less than 6mm): not seen No evidence of pole at this time ? too early Date of LMP: 08/15/23 Beta HcG (if available): 2372.7 IMPRESSION: 1. Single intrauterine gestational sac. Yolk sac and pole are not clearly identified at this ti me. Blighted ovum should be considered. Ectopic is not excluded. This could be an early pre gnancy of 5 weeks 1 day based on the mean sac diameter. Correlate with the beta hCG and follow-up is recommended.
[2023-09-20 19:25] LABS: Appearance,Urine Clear (Clear); Bacteria,Urine Rare /hpf; Bilirubin,Urine Negative (Negative); Blood,Urine Negative (Negative); Color,Urine Colorless; Glucose,Urine (UA) Negative (Negative); Hyaline Casts,Urine 1 /lpf (0-2); Ketones,Urine Negative (Negative); Leukocyte Esterase,Urine Large (Negative); Mucus,Urine Rare /hpf; Nitrite,Urine Negative (Negative); Protein,Urine Negative (Negative); RBC,Urine 11 /hpf (0-5); Specific Gravity,Urine 1.005 (1.001-1.035); Squamous Epithelial Cell,Urine 4 /hpf (0-4); Urobilinogen,Urine <2.0 mg/dL (<2.0); WBC,Urine 22 /hpf (0-5)
[2023-09-20] MEDS ORDERED: NITROFURANTOIN MONOHYD/M-CRYST 100 MG CAP PO SCH (21:00)
--- NOTE | 2023-09-20 23:05 | P.CONS ---
History of Present Illness - Reason for Consult Consult date: 09/20/23 UTI and Requesting physician: Jacobo Osuna - Chief Complaint Burning of urine x few days - History of Present Illness Patient is a 18-year-old female with a past medical his significant for asthma presenting to the hospital about 3 days ago for evaluation of sleeplessness x3 days patient was concerned that she is and would like a baby to be checked out patient on presentation to the hospital did have a low- grade fever of 99.3 degrees forearm height patient was mildly tachycardic and did have vital of 19.5 with a left shift kidney function was normal evidence of normal patient did have a positive UA COVID testing was negative patient was sta rted on Keflex with concern for elevated white count and UTI with infectious disease was consulted for further management of antibiotic therapy patient unfortunately very good historian as she has been complaining more about how she was not treated while here in the ER for 3 days has been complaining of unable to sleep because of the roommate patient has some nausea but no vomiting denies having any diarrhea she is not very clear about her urinary symptoms however denies any hematuria suprapubic or flank pain denies any history of recurrent UTIs or recent antibiotic exposure Review of Systems Positive point and negatives has been mentioned in the HPI, complete review of systems was performed and all other systems are negative Past Medical History Past Medical History: No Reported History, Asthma History of Any Multi-Drug Resistant Organisms: None Reported Past Surgical History: Tonsillectomy Additional Past Anesthesia/Blood Transfusion Reaction / Comm: NO PROBLEMS WITH ANESTHESIA Past Psychological History: No Psychological Hx Reported, ADD/ADHD Smoking Status: Never smoker, Vaper Past Alcohol Use History: Occasional Past Drug Use History: Marijuana - Past Family History Mother Family Medical History: No Reported History Father Family Medical History: No Reported History Medications and Allergies Home Medications Medication Instructions Recorded Confirmed Type Famotidine [Pepcid] 20 mg PO BID 09/16/23 09/16/23 History Ondansetron Odt [Zofran Odt] 4 mg PO DAILY 09/16/23 09/16/23 History cefUROXime axetiL [Ceftin] 500 mg PO DIRECTED 09/16/23 09/16/23 History Allergies Allergy/AdvReac Type Severity Reaction Status Date / Time No Known Allergies Allergy Verified 09/21/23 15:13 Physical Exam Vitals: Vital Signs Temp Pulse Resp BP 09/20/23 08:13 97.7 F 129 H 16 145/85 GENERAL DESCRIPTION: Middle-age female up in the chair in no distress RESPIRATORY SYSTEM: Unlabored breathing , clear to auscultation anteriorly HEART: S1 S2 regular rate and rhythm , ABDOMEN: Soft , no tenderness EXTREMITIES: No edema feet Results CBC & Chem 7: 09/20/23 10:06 09/20/23 10:06 Labs: Abnormal Lab Results - Last 24 Hours (Table) 09/20/23 09/20/23 09/20/23 Range/Units 10:06 10:06 19:14 WBC 12.4 H (4.0-11.0) k/uL ALT 35 H (4-34) U/L Ur Leukocyte Esterase Large H (Negative) Urine RBC 11 H (0-5) /hpf Urine WBC 22 H (0-5) /hpf Urine Bacteria Rare H (None) /hpf Urine Mucus Rare H (None) /hpf Assessment and Plan (1) UTI (urinary tract infection) Current Visit: Yes Status: Acute Code(s): N39.0 - URINARY TRACT INFECTION, SITE NOT SPECIFIED SNOMED Code(s): 77558803 Plan: 1patient is a 18-year-old female who is currently 4 to 5 weeks presenting to the hospital with unable to sleep for few days and concern for possible bipolar disorder with current manic episode patient did have a elevated white count positive UA and concerning for symptomatic UTI likely from enteric gram-negative pathogen 2-patient to continue with the Keflex 500 mg p.o. 3 times daily while waiting for the culture to finalize We will follow on clinical condition and cultures to further adjust medication if needed Thank you for this consultation we will follow the patient along with you Dictation was produced using [employer] dictation software. please excuse any grammatical, word or spelling errors. Time with Patient: Greater than 30
[2023-09-20] MEDS: QUEtiapine 50 MG TAB PO SCH (23:07)
[2023-09-21] MEDS: QUEtiapine 50 MG TAB PO PRN ×2 (01:10→22:48)
[2023-09-21] MEDS: CEPHALEXIN 500 MG CAP PO SCH ×3 (08:14→21:02)
[2023-09-21] MEDS: QUEtiapine 25 MG TAB PO SCH (08:14)
[2023-09-21] MEDS ORDERED: QUEtiapine 25 MG TAB PO STA (15:09)
--- NOTE | 2023-09-21 15:12 | P.PN ---
Progress Note - Text Progress Note Date: 09/21/23 Interval history: Patient was seen today wandering the hallways and agreeable to speak in her ro om. She continues to be fairly intrusive with policy writer typist, hyperverbal, difficult to redirect during conversation. She continues to complain about other patients and continues to demonstrate lability. Apparently she did not sleep well last night. She claims her appetite is fair. She states that she is having ALLERGIES to her clothing. She has been going to some groups however not getting along with a certain patient. She is denying any suicidal or homicidal ideations intent or plan. Denying any auditory visual hallucinations. She has been taking her medications. Not reporting any side effects. Mental status examination: General Appearance: Patient appears to be stated age is alert, directable, and attempts to cooperate. Patient appears to have fair hygiene and grooming. The patient has numerous tattoos and has green hair with glasses. Behavior: Patient is seated without any agitated behavior. Psychomotor activity is elevated. Eye contact is intense. Intrusive at times Speech: Patient's speech is fluent, nonlinear, hyperverbal. Intrusive Mood/Affect: Patient reports their mood is "same" affect is bizarre and euphoric. Suicidality/Homicidality: Patient denies any suicidal or homicidal ideation, intention, and/or plan. Perceptions: Patient denies any visual hallucinations denies any auditory hallucinations. Though content/process: Circumstantial/tangential. with flight of ideas and loose associations, mildly improving. Memory and concentration: Memory and concentration appeared to be fair, patient is difficult to redirect. Alert and oriented 3. Judgment and insight: Poor, improving mildly IMPRESSIONS: Bipolar disorder, current episode manic severe Cannabis use disorder PLAN: -Patient is admitted under involuntary status to MHU for stabilization of psychi atric symptoms and safety. A second certification was completed and along with petition will be filed for court. -Medications : increase Seroquel 50 mg daily + 100 mg daily at bedtime for mood stabilization/psychosis/insomnia. -Seroquel po PRN for agitation/aggression -NRT - not needed as patient does not smoke -SW on board for discharge planning. Encourage patient to participate in groups to work on coping skills. Awaiting deferral and court date.
[2023-09-21] MEDS: QUEtiapine 100 MG TAB PO SCH (21:05)
[2023-09-22] MEDS: CEPHALEXIN 500 MG CAP PO SCH ×4 (08:48→20:18)
[2023-09-22] MEDS: QUEtiapine 50 MG TAB PO SCH (08:49)
--- NOTE | 2023-09-22 14:08 | P.PN ---
Progress Note - Text Progress Note Date: 09/22/23 Interval history: Patient was seen today wandering the hallways and agreeable to speak in her ro om. She continues to be fairly intrusive with process description writer, hyperverbal, difficult to redirect during conversation. Today patient was more argumentative with process description writer and states that she has been arguing with another patient on the unit. She asked process description writer to explain more but the court process and states that she does not want to sign the deferral with the real estate attorney and states that "I really have my hearing date set". She claims that she does not want to take the medications any longer and believes that the medications may harm the baby. We spoke about the teratogenic genic risks and the benefits of the medication and how it would outweigh the risk however patient was argumentative and claims that "I dont trust you and want to talk to my real doctor". She continues to complain about other patients and continues to demonstrate lability. Apparently she did not sleep well last night. She claims her appetite is fair. She is denying any suicidal or homicidal ideations intent or plan. Denying any auditory visual hallucinations. Mental status examination: General Appearance: Patient appears to be stated age is alert, directable, and attempts to cooperate. Patient appears to have fair hygiene and grooming. The patient has numerous tattoos and has green hair with glasses. Behavior: Patient is seated without any agitated behavior. Psychomotor activity is elevated. Eye contact is intense. Intrusive at times. argumentative today Speech: Patient's speech is fluent, nonlinear, hyperverbal. Intrusive Mood/Affect: Patient reports their mood is "not good" affect is bizarre Suicidality/Homicidality: Patient denies any suicidal or homicidal ideation, intention, and/or plan. Perceptions: Patient denies any visual hallucinations denies any auditory hallucinations. Though content/process: Circumstantial/tangential. with flight of ideas and loose associations, more argumentative today. Memory and concentration: Memory and concentration appeared to be fair, Alert and oriented 3. Judgment and insight: Poor IMPRESSIONS: Bipolar disorder, current episode manic severe Cannabis use disorder PLAN: -Patient is admitted under involuntary status to MHU for stabilization of psychiatric symptoms and safety. A second certification was completed and along with petition will be filed for court. -Medications : Seroquel 50 mg daily + 100 mg daily at bedtime for mood stabilization/psychosis/insomnia. patient is now refusing meds. -Seroquel po PRN for agitation/aggression -NRT - not needed as patient does not smoke -SW on board for discharge planning. Encourage patient to participate in groups to work on coping skills. Awaiting deferral and court date.
[2023-09-22] MEDS: QUEtiapine 100 MG TAB PO SCH (20:18)
[2023-09-23] MEDS: CEPHALEXIN 500 MG CAP PO SCH ×3 (08:48→21:02)
[2023-09-23] MEDS: QUEtiapine 50 MG TAB PO SCH (08:49)
[2023-09-23] MEDS: QUEtiapine 50 MG TAB PO PRN (16:01)
--- NOTE | 2023-09-23 16:05 | P.PN ---
Progress Note - Text Progress Note Date: 09/23/23 Interval history: The patient has been evaluated today for an established follow-up visit, co vering for Dr. Pagan The chart has been reviewed, medication reconciliation completed, and the case has been discussed with the nursing staff. The patient was seen while walking in the unit and at times going to her room. The patient requested to be evaluated in the medical office because her concern other patient will hear her conversation with me. The patient presents with tangential thinking, flight of ideas, and disorganized thoughts and speech. She began discussing her current psychiatrist who she feels did not pay attention to her and filed paperwork with the court without consulti ng her. The patient continues to ruminate on her admission to this unit and expresses a desire to be outside the hospital. She frequently jumps from topic to topic, displaying flight of ideas, talking about her diagnosis, her current business attorney in the hospital (who she mentions is the father of her ex-boyfriend), and even discussing another patient calling her "Mother Earth." because the patient has green hair. The patient continues to discuss various bizarre topics, such as Claudy Siu using bleach on his body, her mother mistreating her and preventing her from speaking, her belief that she had the most beautiful baby, and a change in her faith beliefs "I am not Amish anymore" . The nursing staff has reported that the patient had extremely poor sleep, averaging only three hours last night. However, the patient states that she has not engaged in any activities since coming to the unit, except for sleeping. She denies having any suicidal or homicidal ideation and also denies experiencing hallucinations. She reports a fair appetite. The patient has not been taking her prescribed medications, and she mentions that Seroquel has caused her blurry vision. Mental Status Examination: Appearance: Appears stated age, adequately groomed, average body built, green hair. Gait/ posture: Steady gait, normal arm swinging, no abnormal movements, with relaxed posture. Attitude and Behavior: over attached, not fully cooperative, maintained eye contact during course of interview. Motor Activity: Increased psychomotor agitation or retardation. Speech: increased rate, rhythm, pressured. Mood: " irritable Affect: labile, not congruent to mood, not appropriate to context and situation. Thought form: Tangential, clang association. Thought content: Not Logical, denies suicidal / homicidal thoughts, intentions, or plans. Perception: Denies any auditory/ visual or tactile hallucinations. Attention: No impairment. Orientation: Oriented to time, place, person, and situation. Insight & Judgment: poor Impulse control: poor Assessment and Diagnosis: Bipolar disorder, current episode manic severe Cannabis use disorder Plan: Continue inpatient psychiatric hospitalization. The patient continues to meet the criteria for inpatient psychiatric hospitalization, including: patient presents with manic symptoms of flight of ideas, irritable mood with disorganized thoughts and speech. Court paperwork has been filed. Continue routine monitoring, including suicide and elopement precautions. Check every 15 minutes. Educate and encourage the patient to attend groups and other therapeutic activities. Consult the medical team if any acute medical emergency arises. Continue current psychiatric medications, including: Seroquel 50 mg daily + 100 mg daily at bedtime for mood stabilization/psychosis/insomnia. patient is now refusing meds. -NRT - not needed as patient does not smoke Continue PRN psychiatric medications, including: -Seroquel po PRN for agitation/aggression Continue non-psychiatric medications as per the medical team's recommendations. Continue discharge planning as per social service and the primary psychiatric team's recommendations.
[2023-09-23] MEDS: QUEtiapine 100 MG TAB PO SCH (21:03)
[2023-09-24] MEDS: CEPHALEXIN 500 MG CAP PO SCH ×3 (08:09→20:58)
[2023-09-24] MEDS: QUEtiapine 50 MG TAB PO SCH (08:12)
[2023-09-24] MEDS: QUEtiapine 100 MG TAB PO SCH (20:59)
--- NOTE | 2023-09-24 22:08 | P.PN ---
Progress Note - Text Progress Note Date: 09/24/23 Interval history: The patient has been evaluated today for an established follow-up visit, raciel cobos for Dr. Pagan The chart has been reviewed, medication reconciliation completed, and the case has been discussed with the nursing staff. The patient was seen while walking in the unit and at times going to TV room. The patient presents today when of ideas, tangential, but to some degree less disorganized compared to yesterday. The patient is started to talk about feeling happy because today is her younger sister but today, then she started to talk about her that is the second and she has no children. She reports "happy" mood today." Because of her sister for the day. The patient was superficially answering questions related to her mood, denies suicidal or homicidal ideation, hallucinations, or paranoid thoughts. She reports fair sleep and appetite. The patient has very poor insight about her mental health diagnosis and she declined taking any psychiatric medications claimed that she would like to talk to her [employer] RE[employer]UE OFFICER doctor before considering any psych meds. She continues to repeat that taking Seroquel caused her revision. The patient continues to ruminate on the primary psychiatrist signed her Court paperwork without really knowing her. I tried to educate the patient about her mental health diagnosis/bipolar and need for psychiatric medications, but the patient continues to show complete resistance to accept her diagnosis or considering medication. Apparently, the patient continues to present with jose and irritable mood but has very limited insight. As reported by nursing staff, the patient has been verbally provoking other patients in the unit. The patient was educated and encouraged her to follow the unit rules and regulations, and she agreed. Mental Status Examination: Appearance: Appears stated age, adequately groomed, average body built, green hair. Gait/ posture: Steady gait, normal arm swinging, no abnormal movements, with relaxed posture. Attitude and Behavior: over attached, not fully cooperative, maintained eye contact during course of interview. Motor Activity: Increased psychomotor agitation or retardation. Speech: increased rate, rhythm, pressured. Mood: " irritable Affect: labile, not congruent to mood, not appropriate to context and situation. Thought form: Tangential, clang association. Thought content: Not Logical, denies suicidal / homicidal thoughts, intentions, or plans. Perception: Denies any auditory/ visual or tactile hallucinations. Attention: No impairment. Orientation: Oriented to time, place, person, and situation. Insight & Judgment: poor Impulse control: poor Assessment and Diagnosis: Bipolar disorder, current episode manic severe Cannabis use disorder Plan: Continue inpatient psychiatric hospitalization. The patient continues to meet the criteria for inpatient psychiatric hospitalization, including: patient presents with manic symptoms of flight of ideas, irritable mood with disorganized thoughts and speech. Court paperwork has been filed. Continue routine monitoring, including suicide and elopement precautions. Check every 15 minutes. Educate and encourage the patient to attend groups and other therapeutic activities. Consult the medical team if any acute medical emergency arises. Continue current psychiatric medications, including: the patient has not been taking any psychiatric medications. Seroquel 50 mg daily + 100 mg daily at bedtime for mood stabilization/psychosis/insomnia. patient is now refusing meds. -NRT - not needed as patient does not smoke Continue PRN psychiatric medications, including: -Seroquel po PRN for agitation/aggression Continue non-psychiatric medications as per the medical team's recommendations. Continue discharge planning as per social service and the primary psychiatric team's recommendations.
[2023-09-25] MEDS: CEPHALEXIN 500 MG CAP PO SCH ×3 (07:55→21:52)
[2023-09-25] MEDS: QUEtiapine 50 MG TAB PO SCH (07:55)
--- NOTE | 2023-09-25 14:12 | P.PN ---
Progress Note - Text Progress Note Date: 09/25/23 Interval history: Patient was seen today wandering the hallways and agreeable to speak in her ro om. She continues to be fairly intrusive with typewriter repairer, hyperverbal, difficult to redirect at times. Patient claims that she is no longer interested in taking medications and states that she was having side effects however she did not explain clearly what side effects she is having. Operational Risk Manager attempted to offer alternative medications however Seroquel has the best/lowest risk towards the fetus and to help with her mental health condition which is most concerning at this time, patient did not agree and does not want to be on any medications. She continues to state that she wants to talk to her own doctor who is a "female". She requested to see her ultrasound images. She denies any issues with anxiety or depression, states that she does not like another patient on the unit and has been verbally aggressive with her. Continues to have a flight of ideas, rambling thoughts. He claims that her sleep has been on and off. She claims her appetite is fair. She is denying any suicidal or homicidal ideations intent or plan. Denying any auditory visual hallucinations. Mental status examination: General Appearance: Patient appears to be stated age is alert, directable, and attempts to cooperate. Patient appears to have fair hygiene and grooming. The patient has numerous tattoos and has green hair with glasses. Behavior: Patient is seated without any agitated behavior. Psychomotor activity is elevated. Eye contact is intense. Intrusive at times. Less argumentative today Speech: Patient's speech is fluent, nonlinear, hyperverbal. Intrusive, improving mildly Mood/Affect: Patient reports their mood is "not good" affect is bizarre Suicidality/Homicidality: Patient denies any suicidal or homicidal ideation, intention, and/or plan. Perceptions: Patient denies any visual hallucinations denies any auditory hallucinations. Though content/process: Circumstantial/tangential. with flight of ideas and loose associations, less argumentative today. Memory and concentration: Memory and concentration appeared to be fair, Alert and oriented 3. Judgment and insight: Poor IMPRESSIONS: Bipolar disorder, current episode manic severe Cannabis use disorder PLAN: -Patient is admitted under involuntary status to [facility] for stabilization of psychiatric symptoms and safety. A second certification was completed and along with petition will be filed for court. -Medications : Seroquel 50 mg daily + 100 mg daily at bedtime for mood stabilization/psychosis/insomnia. patient is refusing meds. -Seroquel po PRN for agitation/aggression -NRT - not needed as patient does not smoke -SW on board for discharge planning. Encourage patient to participate in groups to work on coping skills. pt deferred with mergers and acquisitions attorney however now is refusing meds, will file demand today
[2023-09-25] MEDS: ACETAMINOPHEN TAB 325 MG TAB PO PRN (18:25)
[2023-09-25] MEDS: QUEtiapine 100 MG TAB PO SCH (21:52)
[2023-09-26] MEDS: QUEtiapine 50 MG TAB PO SCH (07:47)
--- NOTE | 2023-09-26 14:33 | US ---
EXAMINATION TYPE: Transabdominal DATE OF EXAM: 09/26/2023 2:15 PM COMPARISON: The ultrasound 09/20/2023 CLINICAL INDICATION: Female, 18 years old with history of viability; EXAM PERFORMED: Transvaginal (TV) due to HR not seen TA 09/20/23 Patient inserted transvaginal probe - became uncomfortable residential through - skipped transverse Uteru s to get needed images to end exam sooner for patient. GESTATIONAL AGE / DATING Dates by First Scan: (6 weeks/0 days) EDC: 05/21/2024 Dates by Current Scan for: (5 weeks/6 days) EDC: 05/22/2024 MATERNAL ANATOMY Uterus: 5.7 x 4.1 x hypoechoic areas adj to gestational sac Right Ovary: 3.2 x 2.7 x 2.4 cm - corpus luteum seen Left Ovary: 2.5 x 2.1 x 2.4 cm - WNL Post CDS / Adnexa: WNL Presence of free fluid: NO Presence of corpus luteal cyst: Right ovary Presence of subchorionic bleed: Small subchronic hemorrhage. GESTATION / SURVEY CRL: 0.29 (5 weeks/6 days) Yolk Sac (normal less than 6mm): 4mm Heart Rate: 153 bpm Rhythm: normal flicker seen - limited visualization due to early gestational age IUP: yes IMPRESSION: 1. Single live intrauterine gestation with estimated gestational age of 5 weeks 6 days. 2. Small subchronic hemorrhage. Close clinical surveillance is recommended.
[2023-09-26] MEDS: ACETAMINOPHEN TAB 325 MG TAB PO PRN (15:16)
--- NOTE | 2023-09-26 15:28 | P.PN ---
Progress Note - Text Progress Note Date: 09/26/23 Interval history: Patient was seen today wandering the hallways and agreeable to speak in \\the o ffice today with junior underwriter. She continues to be fairly intrusive with junior underwriter, hyperverbal, difficult to redirect at times. She is also fairly argumentative with junior underwriter in things to requested "female doctor" and continues to state that she does not trust junior underwriter. She claims that she does not need any psychiatric medications at this time. She continues to have very poor insight and judgment, she has been refusing her Seroquel. She apparently was scheduled today for a ultrasound.Continues to have a flight of ideas, rambling thoughts. He claims that her sleep has been on and off. She claims her appetite is fair. She is denying any suicidal or homicidal ideations intent or plan. Denying any auditory visual hallucinations. Mental status examination: General Appearance: Patient appears to be stated age is alert, directable, and attempts to cooperate. Patient appears to have fair hygiene and grooming. The patient has numerous tattoos and has green hair with glasses. Behavior: Patient is seated without any agitated behavior. Psychomotor activity is elevated. Eye contact is intense. Intrusive at times. argumentative today Speech: Patient's speech is fluent, nonlinear, hyperverbal. Intrusive, improving mildly Mood/Affect: Patient reports their mood is "same" affect is constricted Suicidality/Homicidality: Patient denies any suicidal or homicidal ideation, intention, and/or plan. Perceptions: Patient denies any visual hallucinations denies any auditory hallucinations. Though content/process: Circumstantial/tangential. with flight of ideas and loose associations, argumentative today. Memory and concentration: Memory and concentration appeared to be fair, Alert and oriented 3. Judgment and insight: Poor IMPRESSIONS: Bipolar disorder, current episode manic severe Cannabis use disorder PLAN: -Patient is admitted under involuntary status to [facility] for stabilization of psychiatric symptoms and safety. -Medications : Seroquel 50 mg daily + 100 mg daily at bedtime for mood stabilization/psychosis/insomnia. patient is refusing meds. -Seroquel po PRN for agitation/aggression -she is scheduled for her ultrasound today from [facility] -NRT - not needed as patient does not smoke -SW on board for discharge planning. Encourage patient to participate in groups to work on coping skills. pt deferred with laboratory secretary however now is refusing meds, demand for hearing set for 10/04
[2023-09-26] MEDS: QUEtiapine 100 MG TAB PO SCH (20:01)
[2023-09-27] MEDS: QUEtiapine 50 MG TAB PO SCH (08:32)
--- NOTE | 2023-09-27 13:25 | P.PN ---
Progress Note - Text Progress Note Date: 09/27/23 Interval history: Patient was seen today wandering the hallways today and was socializing with o ther patients. She was agreeable to be corrected in the office today. She continues to be fairly intrusive with keno writer / runner and fairly argumentative. She continues to request a female physician. She was minimizing her need for hospitalization also for medications. We tended to speak about her ultrasound results however patient wanted to speak to the ASSISTANT HEAD CASHIER about it. She continues to have very poor insight and judgment, she has been refusing her Seroquel.Continues to have a flight of ideas, rambling thoughts. sHe claims that her sleep has been on and off. She claims her appetite is fair. She is denying any suicidal or homicidal ideations intent or plan. Denying any auditory visual hallucinations. Mental status examination: General Appearance: Patient appears to be stated age is alert, directable, and attempts to cooperate. Patient appears to have fair hygiene and grooming. The patient has numerous tattoos and has green hair with glasses. Behavior: Patient is seated without any agitated behavior. Eye contact is intense. Intrusive at times. mildly argumentative today Speech: Patient's speech is fluent, nonlinear, hyperverbal, improving mildly Mood/Affect: Patient reports their mood is "good" affect is constricted and constricted Suicidality/Homicidality: Patient denies any suicidal or homicidal ideation, intention, and/or plan. Perceptions: Patient denies any visual hallucinations denies any auditory hallucinations. Though content/process: Circumstantial/tangential. with flight of ideas and loose associations, argumentative today. Memory and concentration: Memory and concentration appeared to be fair, Alert and oriented 3. Judgment and insight: Poor, improving mildly IMPRESSIONS: Bipolar disorder, current episode manic severe Cannabis use disorder PLAN: -Patient is admitted under involuntary status to [facility] for stabilization of psychiatric symptoms and safety. -Medications : Seroquel 50 mg daily + 100 mg daily at bedtime for mood stabilization/psychosis/insomnia. patient is refusing meds. -Seroquel po PRN for agitation/aggression -she is scheduled for her ultrasound today from [facility] -NRT - not needed as patient does not smoke -SW on board for discharge planning. Encourage patient to participate in groups to work on coping skills. pt deferred with civil rights attorney however now is refusing meds, demand for hearing set for 10/04
[2023-09-27 14:27] VITALS: BMI 20.9
[2023-09-27] MEDS: QUEtiapine 100 MG TAB PO SCH (20:47)
[2023-09-27] MEDS: ACETAMINOPHEN TAB 325 MG TAB PO PRN (20:57)
[2023-09-28] MEDS: QUEtiapine 50 MG TAB PO SCH (08:32)
--- NOTE | 2023-09-28 11:22 | P.PN ---
Progress Note - Text Progress Note Date: 09/28/23 Interval history: Patient was seen today wondering hallways and talking to another patient. She appears to be less argumentative today with insurance underwriter sales more directable. She claims that she is focused and trying to go to more groups today. She continues to have fairly minimal insight and judgment. Continues to refuse medications. It was documented that she slept about 3 hours last night however patient states that she slept most of the night. She continued to speak about needing more food and was thankful to have the insurer. She continues to have issues with another argumentative patient on the unit. Continues to have a flight of ideas, rambling thoughts. sHe claims that her sleep has been on and off. She claims her appetite is fair. She is denying any suicidal or homicidal ideations intent or plan. Denying any auditory visual hallucinations. Mental status examination: General Appearance: Patient appears to be stated age is alert, directable, and attempts to cooperate. Patient appears to have fair hygiene and grooming. The patient has numerous tattoos and has green hair with glasses. Behavior: Patient is seated without any agitated behavior. Eye contact is intense. less Intrusive at times. mildly argumentative today Speech: Patient's speech is fluent, nonlinear, improving mildly Mood/Affect: Patient reports their mood is "alright" affect is constricted and constricted Suicidality/Homicidality: Patient denies any suicidal or homicidal ideation, intention, and/or plan. Perceptions: Patient denies any visual hallucinations denies any auditory hallucinations. Though content/process: Circumstantial/tangential. with flight of ideas and loose associations, less argumentative today. Memory and concentration: Memory and concentration appeared to be fair, Alert and oriented 3. Judgment and insight: Poor, improving mildly IMPRESSIONS: Bipolar disorder, current episode manic severe Cannabis use disorder PLAN: -Patient is admitted under involuntary status to [facility] for stabilization of psychiatric symptoms and safety. -Medications : Seroquel 50 mg daily + 100 mg daily at bedtime for mood stabilization/psychosis/insomnia. patient is refusing meds. -Seroquel po PRN for agitation/aggression -she is scheduled for her ultrasound today from [facility] -NRT - not needed as patient does not smoke -SW on board for discharge planning. Encourage patient to participate in groups to work on coping skills. pt deferred with insurance defense attorney however now is refusing meds, demand for hearing set for 10/04
[2023-09-28] MEDS: QUEtiapine 100 MG TAB PO SCH (20:48)
[2023-09-29] MEDS: QUEtiapine 50 MG TAB PO SCH (08:57)
--- NOTE | 2023-09-29 14:52 | P.PN ---
Progress Note - Text Progress Note Date: 09/29/23 Interval history: Patient was seen today wondering hallways and talking to another patient. Amanda yuan was also seen earlier today participating in activities group interacting with other patients. She appears to be less argumentative today with publications writer more directable. She claims that she is having "vaginal issues" and states that it is mainly an uncomfortable feeling. Claims that there is white discharge. She claims that she does not feel comfortable talking to publications writer who is a male about her female genital issues and wanted recommendations from the EARLY CHILDHOOD TEACHER. She continues to have fairly minimal insight and judgment. Continues to refuse medications. She states that she is sleeping fairly at nighttime. She continues to have issues with another argumentative patient on the unit. Continues to have a flight of ideas, rambling thoughts, improving mildly. She claims her appetite is fair. She is denying any suicidal or homicidal ideations intent or plan. Denying any auditory visual hallucinations. Mental status examination: General Appearance: Patient appears to be stated age is alert, directable, and attempts to cooperate. Patient appears to have fair hygiene and grooming. The patient has numerous tattoos and has green hair with glasses. Behavior: Patient is seated without any agitated behavior. Eye contact is intense. less Intrusive at times. mildly argumentative today Speech: Patient's speech is fluent, nonlinear, improving mildly Mood/Affect: Patient reports their mood is "ok" affect is constricted and constricted Suicidality/Homicidality: Patient denies any suicidal or homicidal ideation, intention, and/or plan. Perceptions: Patient denies any visual hallucinations denies any auditory hallucinations. Though content/process: Circumstantial/tangential. with flight of ideas and loose associations, less argumentative today. Memory and concentration: Memory and concentration appeared to be fair, Alert and oriented 3. Judgment and insight: Poor, improving mildly IMPRESSIONS: Bipolar disorder, current episode manic severe Cannabis use disorder PLAN: -Patient is admitted under involuntary status to [facility] for stabilization of psychiatric symptoms and safety. -Medications : Seroquel 100 mg daily at bedtime for mood stabilization/psychosis/insomnia. patient is refusing meds. -Seroquel po PRN for agitation/aggression -Nurse to contact OBGYN for vaginal complaints, white discharge, no smell, irritation - for recommendations on prophylactic treatment. -NRT - not needed as patient does not smoke -SW on board for discharge planning. Encourage patient to participate in groups to work on coping skills. pt deferred with energy attorney however now is refusing m eds, demand for hearing set for 10/04
[2023-09-29] MEDS: QUEtiapine 100 MG TAB PO SCH (19:47)
--- NOTE | 2023-09-30 10:43 | P.PN ---
Progress Note - Text Progress Note Date: 09/30/23 20 at 6 weeks of , EDC 05/21/2024 based on 5 week US. Patient is without complaints but is noting some white vaginal discharge and itching. she denies VB. US reviewed with patient PE deferred A: IUP @ 6 weeks, EDC 05/21/2024 vaginitis P: rec daily PNV given her irritation will treat with terconazole.
[2023-09-30] MEDS: ACETAMINOPHEN TAB 325 MG TAB PO PRN ×2 (11:33→16:49)
--- NOTE | 2023-09-30 13:11 | P.PN ---
Subjective Progress Note Date: 09/30/23 Principal diagnosis: IMPRESSIONS: Bipolar disorder, current episode manic severe Cannabis use disorder Interval history: Patient was seen today wondering hallways and talking to another patient. For a while she was on the phone seemed to be quite agitated talking out loud voice Patient was also seen earlier today participating in activities group interacting with other patients. The staff report that she is less agitated and less argumentative more directable. She claims that she has trouble eating because she has morning sickness all day long. She also says that her job she tends to snack not eat meals and that her body is craving snacks. We've been giving her an sure but it does have note byproducts and even not does not have lactose still she says it bothers her stomach She continues to have fairly minimal insight and judgment. Continues to refuse medications. She states that she is sleeping fairly well at nighttime. . Continues to have a flight of ideas, rambling thoughts. She claims her appetite is fair even though she has lost weight while being . She is denying any suicidal or homicidal ideations intent or plan. Denying any auditor tax y visual hallucinations. She remains focused on being discharged she says she's got a court on Monday and they'll let her go. "I don't know what I do if they don't let me out." Mental status examination: General Appearance: Patient appears to be her stated age, she is is alert, directable, and attempts to cooperate. Patient appears to have fair hygiene and grooming. The patient has numerous tattoos and has green hair with glasses. Behavior: Patient is seated without any agitated behavior. Eye contact is intense. She is still intrusive at times. mildly argumentative today Speech: Patient's speech is fluent, nonlinear. Mood/Affect: Patient reports their mood is "ok" affect is constricted and constricted Suicidality/Homicidality: Patient denies any suicidal or homicidal ideation, i ntention, and/or plan. Perceptions: Patient denies any visual hallucinations denies any auditory chris lucinations. Though content/process: Circumstantial/tangential. with flight of ideas and loose associations, she interacted she fairly pleasant and cooperative. Memory and concentration: Memory and concentration appeared to be fair, Alert and oriented 3. Judgment and insight: Poor, improving mildly IMPRESSIONS: Bipolar disorder, current episode manic severe Cannabis use disorder Assessment: Clearly still manic he is calming down perhaps from the structure of the place she is not taking medicine. PLAN: -Patient is admitted under involuntary status to [facility]HU for stabilization of psychiatric symptoms and safety. -Medications : Seroquel 100 mg daily at bedtime for mood stabilization/psychos is/insomnia. patient is refusing meds. -Seroquel po PRN for agitation/aggression -Nurse to contact OBGYN for vaginal complaints, white discharge, no smell, irritation - for recommendations on prophylactic treatment. -NRT - not needed as patient does not smoke -SW on board for discharge planning. Encourage patient to participate in groups to work on coping skills. pt deferred with special education administrator however now is refusing meds, demand for hearing set for 10/04 Objective - Vital Signs Vital signs: Vital Signs Temp 97.2 F L 09/30/23 08:40 Pulse 103 H 09/30/23 08:40 Resp 16 09/30/23 08:40 BP 112/65 09/30/23 08:40 Pulse Ox 99 09/30/23 08:40 FiO2 - Labs CBC & Chem 7: 09/20/23 10:06 09/20/23 10:06
[2023-09-30] MEDS: QUEtiapine 100 MG TAB PO SCH (20:11)
[2023-09-30] MEDS: TERCONAZOLE 0.8% VAGINAL CREAM 20 GM TUBE VAGINAL SCH (20:57)
[2023-10-01] MEDS: PRENATAL VIT-IRON-FOLIC ACID 1 EACH TABLET PO SCH (08:30)
--- NOTE | 2023-10-01 10:15 | P.PN ---
Subjective Progress Note Date: 10/01/23 Principal diagnosis: IMPRESSIONS: Bipolar disorder, current episode manic severe Cannabis use disorder Interval history: Patient was seen today wondering hallways and talking to another patient. She was up early but says she slept okay For a while she was on the phone seemed to be quite agitated talking out loud voice. She says she always talks loud. She was concerned about not being able to get the food that she needs so that she can eat healthy she was pleased that she has vitamins but she says she asked for scrambled eggs in the gave her cold hard-boiled eggs which she couldn't eat. She continues to have fairly minimal insight and judgment. Continues to refuse medications. She states that she is sleeping fairly well at nighttime. . Continues to have a flight of ideas, rambling thoughts. She claims her appetite is fair even though she has lost weight while being . She is denying any suicidal or homicidal ideations intent or plan. Denying any auditory visual hallucinations. She remains focused on being discharged she says she's got a court on Monday and they'll let her go. "I don't know what I do if they don't let me out." Mental status examination: Pleasant and cooperative General Appearance: Patient appears to be her stated age, she is is alert, directable, and attempts to cooperate. Patient appears to have fair hygiene and grooming. The patient has numerous tattoos and has green hair with glasses. Behavior: Patient is seated without any agitated behavior. Eye contact is intense. She is still intrusive at times. mildly argumentative today Speech: Patient's speech is fluent, nonlinear slightly pressured and rambling. Mood/Affect: Patient reports their mood is "ok" affect is constricted and constricted Suicidality/Homicidality: Patient denies any suicidal or homicidal ideation, intention, and/or plan. Perceptions: Patient denies any visual hallucinations denies any auditory hallucinations. Though content/process: Circumstantial/tangential. with flight of ideas and loose associations, she interacted she fairly pleasant and cooperative. No evidence of responding to voices or seeing things Memory and concentration: Memory and concentration appeared to be fair, Alert and oriented 3. Judgment and insight: Poor, improving mildly IMPRESSIONS: Bipolar disorder, current episode manic severe Cannabis use disorder Assessment: Clearly still manic she is calming down perhaps from the structure of the place she is not taking medicine. PLAN: -Patient is admitted under involuntary status to [facility]HU for stabilization of psychiatric symptoms and safety. -Medications : Seroquel 100 mg daily at bedtime for mood stabilization/psychosis/insomnia. patient is refusing meds. -Seroquel po PRN for agitation/aggression -Nurse to contact OBGYN for vaginal complaints, white discharge, no smell, irritation - for recommendations on prophylactic treatment. -NRT - not needed as patient does not smoke -SW on board for discharge planning. Encourage patient to participate in groups to work on coping skills. pt deferred with contracts attorney however now is refusing meds, demand for hearing set for 10/04 Objective - Vital Signs Vital signs: Vital Signs Temp 97.2 F L 09/30/23 08:40 Pulse 119 H 10/01/23 08:31 Resp 16 09/30/23 08:40 BP 131/84 10/01/23 08:31 Pulse Ox 99 09/30/23 08:40 FiO2 - Labs CBC & Chem 7: 09/20/23 10:06 09/20/23 10:06
[2023-10-01] MEDS: QUEtiapine 100 MG TAB PO SCH (20:49)
[2023-10-01] MEDS: TERCONAZOLE 0.8% VAGINAL CREAM 20 GM TUBE VAGINAL SCH (20:59)
[2023-10-02] MEDS: PRENATAL VIT-IRON-FOLIC ACID 1 EACH TABLET PO SCH (08:53)
[2023-10-02] MEDS: ACETAMINOPHEN TAB 325 MG TAB PO PRN (08:55)
--- NOTE | 2023-10-02 11:40 | P.PN ---
Progress Note - Text Progress Note Date: 10/02/23 Interval history: Patient was seen today taking part in groups today and interacting with other patients. Patient was agreeable to speak to bond underwriter in the office today. She continues to be fairly intrusive and demanding. She also was fairly argumentative with bond underwriter. She spoke about having court on Monday and then claims that "my mom can pick me up afterwards". Asset Accountant attempted to review the process of court and with the hearing was about inpatient was fairly superficial about it and did not fully understand. Patient continues to be fairly demanding and states that she does not trust bond underwriter. She states that she is trying to go to groups, states that she is sleeping fairly at nighttime. Has been eating fairly. Continues to have a flight of ideas, rambling thoughts, improving mildly. She claims her appetite is fair. She is denying any suicidal or homicidal ideations intent or plan. Denying any auditory visual hallucinations. Mental status examination: General Appearance: Patient appears to be stated age is alert, directable, and attempts to cooperate. Patient appears to have fair hygiene and grooming. The patient has numerous tattoos and has green hair with glasses. Behavior: Patient is seated without any agitated behavior. Eye contact is intense. Intrusive at times. argumentative today Speech: Patient's speech is fluent, nonlinear, improving mildly Mood/Affect: Patient reports their mood is "fine" affect is constricted and constricted Suicidality/Homicidality: Patient denies any suicidal or homicidal ideation, intention, and/or plan. Perceptions: Patient denies any visual hallucinations denies any auditory hallucinations. Though content/process: Circumstantial/tangential. with flight of ideas and loose associations, argumentative today. Memory and concentration: Memory and concentration appeared to be fair, Alert and oriented 3. Judgment and insight: Poor IMPRESSIONS: Bipolar disorder, current episode manic severe Cannabis use disorder PLAN: -Patient is admitted under involuntary status to [facility]HU for stabilization of psychiatric symptoms and safety. -Medications : Seroquel 100 mg daily at bedtime for mood stabilization/psychosis/insomnia. patient is refusing meds. -Seroquel po PRN for agitation/aggression -NRT - not needed as patient does not smoke -SW on board for discharge planning. Encourage patient to participate in groups to work on coping skills. pt deferred with attorney lawyer however now is refusing meds, demand for hearing set for 10/04
[2023-10-02] MEDS: QUEtiapine 100 MG TAB PO SCH (22:37)
[2023-10-02] MEDS: TERCONAZOLE 0.8% VAGINAL CREAM 20 GM TUBE VAGINAL SCH (22:38)
[2023-10-03] MEDS: PRENATAL VIT-IRON-FOLIC ACID 1 EACH TABLET PO SCH (08:13)
--- NOTE | 2023-10-03 11:26 | P.PN ---
Progress Note - Text Progress Note Date: 10/03/23 Interval history: Patient was seen today taking part in groups today and interacting with other patients. Patient was agreeable to speak to teletypewriter installer in the office today. She continues to be fairly intrusive and demanding. Patient was fairly focused on obtaining a inhaler due to having difficulty with breathing due to the . She has [address] and we spoke about this with hearing will be tomorrow. Patient states that she was feeling nauseous this morning and claims that she is to take Zofran for it. She will continue to monitor and drink fluids, she was advised to let nursing staff know so that we can message BLACKSMITH HAMMER OPERATOR. Patient continues to complain about another patient on the unit harassing her. States that she is unable to groups. He claims that her mood and appetite are fair. Patient continues to be fairly demanding and states that she does not trust teletypewriter installer. Continues to have a flight of ideas, rambling thoughts, improving mildly. She claims her appetite is fair. She is denying any suicidal or homicidal ideations intent or plan. Denying any auditory visual hallucinations. Mental status examination: General Appearance: Patient appears to be stated age is alert, directable, and attempts to cooperate. Patient appears to have fair hygiene and grooming. The patient has numerous tattoos and has green hair with glasses. Behavior: Patient is seated without any agitated behavior. Eye contact is intense. argumentative today Speech: Patient's speech is fluent, nonlinear, improving mildly Mood/Affect: Patient reports their mood is "fine" affect is congruent and constricted Suicidality/Homicidality: Patient denies any suicidal or homicidal ideation, intention, and/or plan. Perceptions: Patient denies any visual hallucinations denies any auditory hallucinations. Though content/process: Circumstantial/tangential. with flight of ideas and loose associations, improving mildly, less argumentative today. Memory and concentration: Memory and concentration appeared to be fair, Alert and oriented 3. Judgment and insight: Poor IMPRESSIONS: Bipolar disorder, current episode manic severe Cannabis use disorder PLAN: -Patient is admitted under involuntary status to MHU for stabilization of psychiatric symptoms and safety. -Medications : decrease Seroquel 50 mg daily at bedtime for mood stabilization/psychosis/insomnia. patient is refusing meds. -Seroquel po PRN for agitation/aggression -continue to monitor intake and N/V to see if requires medications for treatment. -NRT - not needed as patient does not smoke -SW on board for discharge planning. Encourage patient to participate in groups to work on coping skills. pt deferred with air brake tester however now is refusing meds, demand for hearing set for 10/04
[2023-10-03] MEDS: ONDANSETRON 4 MG TAB PO PRN (13:19)
[2023-10-03] MEDS ORDERED: QUEtiapine 50 MG TAB PO SCH (21:00)
[2023-10-03] MEDS: ALBUTEROL INHALER 60 PUFF/8 GM INHALER (MHU) INHALATION PRN (21:04)
[2023-10-04] MEDS: PRENATAL VIT-IRON-FOLIC ACID 1 EACH TABLET PO SCH (08:52)
[2023-10-04] MEDS: ALBUTEROL INHALER 60 PUFF/8 GM INHALER (MHU) INHALATION PRN (09:43)
--- NOTE | 2023-10-04 12:58 | P.PN ---
Progress Note - Text Progress Note Date: 10/04/23 Interval history: Patient was seen today taking part in groups today and interacting with other patients. Patient was agreeable to speak to travel writer in the office today. She continues to be fairly intrusive and demanding/argumentative. Patient states she's concerned with side effects of the medications. Patient states that she is feeling nauseous. We will continue to monitor and encourage pt to drink fluids, she was advised to let nursing staff know so that we can message FUR TRAPPER. Pt States that she is goes to groups. She claims that her mood and appetite are fair. Patient continues to be fairly demanding and states that she does not trust travel writer. Continues to have a flight of ideas, rambling thoughts, improving mildly. She claims her appetite is fair. She is denying any suicidal or homicidal ideations intent or plan. Denying any auditory visual hallucinations. Mental status examination: General Appearance: Patient appears to be stated age is alert, directable, and attempts to cooperate. Patient appears to have fair hygiene and grooming. The patient has numerous tattoos and has green hair with glasses. Behavior: Patient is seated agitated behavior. Eye contact is intense. argumentative today Speech: Patient's speech is fluent, nonlinear, improving mildly Mood/Affect: Patient reports their mood is "fine" affect is congruent and constricted Suicidality/Homicidality: Patient denies any suicidal or homicidal ideation, intention, and/or plan. Perceptions: Patient denies any visual hallucinations denies any auditory hallucinations. Though content/process: Circumstantial/tangential. with flight of ideas and loose associations, improving mildly, less argumentative today. Memory and concentration: Memory and concentration appeared to be fair, Alert and oriented 3. Judgment and insight: Poor IMPRESSIONS: Bipolar disorder, current episode manic severe Cannabis use disorder PLAN: -Patient is admitted under involuntary status to MHU for stabilization of psychiatric symptoms and safety. -Medications : d/c Seroquel and replace with abilify 2.5 mg daily for mood stabilization/psychosis/insomnia. pt is now court ordered -Seroquel po PRN for agitation/aggression -continue to monitor intake and N/V to see if requires medications for treatment. zofran prn for nausea -NRT - not needed as patient does not smoke -SW on board for discharge planning. Encourage patient to participate in groups to work on coping skills. received court order for MH treatment on 10/04.
[2023-10-04] MEDS: ARIPiprazole 5 MG TAB PO SCH (13:31)
[2023-10-04] MEDS: ONDANSETRON 4 MG TAB PO PRN (17:57)
[2023-10-05] MEDS: ARIPiprazole 5 MG TAB PO SCH (08:23)
[2023-10-05] MEDS: PRENATAL VIT-IRON-FOLIC ACID 1 EACH TABLET PO SCH (08:23)
[2023-10-05] MEDS: ALBUTEROL INHALER 60 PUFF/8 GM INHALER (MHU) INHALATION PRN (08:24)
[2023-10-05] MEDS ORDERED: ONDANSETRON 4 MG TAB PO PRN (08:28)
[2023-10-05 08:44] VITALS: PULSE 115
[2023-10-05] MEDS: ONDANSETRON ODT 4 MG TAB PO PRN (11:09)
--- NOTE | 2023-10-05 11:15 | P.PN ---
Progress Note - Text Progress Note Date: 10/05/23 Interval history: Patient was seen today in replaced by [facility]. Patient was agreeable to speak to fha underwriter in the office today. She appears to be less argumentative and intrusive .Patient states that she is still feeling nauseous. We will continue to monitor and encourage pt to drink fluids, she was advised to let nursing staff know so that we can message BOAT JOINER. Pt States that she is goes to groups. she asked to be put on ODT zofran instead for today. She claims that her mood and appetite are fair. Continues to slightly improve with flight of ideas, improving. She is denying any suicidal or homicidal ideations intent or plan. Denying any auditory visual hallucinations. Mental status examination: General Appearance: Patient appears to be stated age is alert, directable, and attempts to cooperate. Patient appears to have fair hygiene and grooming. The patient has numerous tattoos and has green hair with glasses. Behavior: Patient is seated without agitated behavior. Speech: Patient's speech is fluent, nonlinear, improving mildly Mood/Affect: Patient reports their mood is "fine" affect is congruent and constricted improving midly Suicidality/Homicidality: Patient denies any suicidal or homicidal ideation, intention, and/or plan. Perceptions: Patient denies any visual hallucinations denies any auditory hallucinations. Though content/process: Circumstantial/tangential. with flight of ideas and loose associations, improving mildly, not argumentative today. Memory and concentration: Memory and concentration appeared to be fair, Alert and oriented 3. Judgment and insight: improving IMPRESSIONS: Bipolar disorder, current episode manic severe Cannabis use disorder PLAN: -Patient is admitted under involuntary status to MHU for stabilization of psychiatric symptoms and safety. -Medications : abilify 2.5 mg daily for mood stabilization/psychosis/insomnia. pt is now court ordered -Zofran ODT 4mg prn for nausea -Seroquel po PRN for agitation/aggression -continue to monitor intake and N/V to see if requires medications for treatment. -NRT - not needed as patient does not smoke -SW on board for discharge planning. Encourage patient to participate in groups to work on coping skills. received court order for MH treatment on 10/04. Likely discharge 10/09, if patient continues to improve
[2023-10-05] MEDS: METOCLOPRAMIDE 10 MG TAB PO PRN (23:01)
[2023-10-06] MEDS: ARIPiprazole 5 MG TAB PO SCH (09:15)
[2023-10-06] MEDS: PRENATAL VIT-IRON-FOLIC ACID 1 EACH TABLET PO SCH (09:16)
[2023-10-06] MEDS: ONDANSETRON ODT 4 MG TAB PO PRN (09:21)
--- NOTE | 2023-10-06 11:56 | P.PN ---
Progress Note - Text Progress Note Date: 10/06/23 Interval history: Patient was seen today in her room, due to nausea due to . Patient says she slept well last night, only waking a couple times. . Patient states that she is still feeling nauseous, due to , but the zofran and reglan is helping. We will continue to monitor and encourage pt to drink fluids, and eat smaller meals. Pt has been mainly staying in her room due to the nausea. sign writer hand and patient spoke about side effect profiles or both seroquel and abilify and how they both can cause nausea/vomitting and patient is opting to remain on abilify and contoinue on prn Nausea meds. She claims that her mood and appetite are fair. Compliant with medications, and is tolerating the well. She is denying any suicidal or homicidal ideations intent or plan. Denying any auditory/visual hallucinations. Mental status examination: General Appearance: Patient appears to be stated age is alert, directable, and attempts to cooperate. Patient appears to have fair hygiene and grooming. The patient has numerous tattoos and has green hair with glasses. Behavior: Patient is layting in bed, no agitated behavior. Speech: Patient's speech is fluent, linear, improving Mood/Affect: Patient reports their mood is "ok" affect is congruent improving Suicidality/Homicidality: Patient denies any suicidal or homicidal ideation, intention, and/or plan. Perceptions: Patient denies any visual hallucinations denies any auditory hallucinations. Though content/process: Circumstantial/tangential. improving Memory and concentration: Memory and concentration appeared to be fair, Alert and oriented 3. Judgment and insight: improving IMPRESSIONS: Bipolar disorder, current episode manic severe Cannabis use disorder PLAN: -Patient is admitted under involuntary status to MHU for stabilization of psychiatric symptoms and safety. -Medications : abilify 2.5 mg daily for mood stabilization/psychosis/insomnia. pt is now court ordered -Zofran ODT 4mg prn for nausea Reglan prm for n/v -Seroquel po PRN for agitation/aggression -continue to monitor intake and N/V -NRT - not needed as patient does not smoke -SW on board for discharge planning. Encourage patient to participate in groups to work on coping skills. received court order for MH treatment on 10/04. Likely discharge 10/09, to home with her mom, if patient continues to improve
[2023-10-06] MEDS: METOCLOPRAMIDE 10 MG TAB PO PRN (13:33)
[2023-10-07 06:53] VITALS: BP 120/71; RESP 13; TEMP 96.8
[2023-10-07] MEDS: ARIPiprazole 5 MG TAB PO SCH (09:37)
[2023-10-07] MEDS: PRENATAL VIT-IRON-FOLIC ACID 1 EACH TABLET PO SCH (09:37)
[2023-10-07] MEDS: METOCLOPRAMIDE 10 MG TAB PO PRN (09:40)
[2023-10-07] MEDS: ONDANSETRON ODT 4 MG TAB PO PRN (20:38)
[2023-10-08] MEDS: ARIPiprazole 5 MG TAB PO SCH (08:18)
[2023-10-08] MEDS: PRENATAL VIT-IRON-FOLIC ACID 1 EACH TABLET PO SCH (08:18)
[2023-10-08] MEDS: METOCLOPRAMIDE 10 MG TAB PO PRN ×2 (10:27→16:41)
--- NOTE | 2023-10-08 10:28 | P.PN ---
Progress Note - Text Interval history: Patient was seen in her room and was directable and agreeable to speak with junior technical writer. Reports nausea. States that this is typical with her morning sickness. Mentally she is feeling "good". At this time patient denies any suicidal or homicidal ideations intent or plan. Denies any Auditory or visual hallucinations. Patient denies any side effects from the medications and has been compliant with meds. Mental status exam: General Appearance: [Patient appears to be stated age is alert, directable, and cooperative.] Behavior: [No agitated behavior. Patient is calm and directable] Speech: Patient's speech is fluent and nonpressured. Mood/Affect: Mood is improving mildly, affect is congruent and constricted. Suicidality/Homicidality: Patient denies having any suicidal or homicidal ideation intent or plan. Perceptions: Patient denies any auditory or visual hallucinations. Though content/process: [There is no evidence of any delusional thought content and thought process is linear and goal-directed.] Memory and concentration: AOX3, grossly intact for the purposes of this session Judgment and insight: improving mildly Assessment/Plan: Continue with current diagnosis. Patient continues to meet criteria for inpatient psychiatric admission for symptom stabilization and safety.[Patient will be maintained on current psychotropic medication regimen.] Monitor for medication compliance and for any psychotropic medication side effects. Will continue to monitor ongoing response to treatment. Encouraged participation in milieu.
--- NOTE | 2023-10-08 10:29 | P.PN ---
Progress Note - Text Interval history: Patient was seen in her room and was directable and agreeable to speak with director underwriter sales. States that she had pinkish/reddish discharged this morning. Continues to have morning sickness. Has poor sleep due to vomiting.. At this time patient denies any suicidal or homicidal ideations intent or plan. Denies any Auditory or visual hallucinations. Patient denies any side effects from the medications and has been compliant with meds. Mental status exam: General Appearance: [Patient appears to be stated age is alert, directable, and cooperative.] Behavior: [No agitated behavior. Patient is calm and directable] Speech: Patient's speech is fluent and nonpressured. Mood/Affect: Mood is improving mildly, affect is congruent and constricted. Suicidality/Homicidality: Patient denies having any suicidal or homicidal ideation intent or plan. Perceptions: Patient denies any auditory or visual hallucinations. Though content/process: [There is no evidence of any delusional thought content and thought process is linear and goal-directed.] Memory and concentration: AOX3, grossly intact for the purposes of this session Judgment and insight: improving mildly Assessment/Plan: Nursing will perfect serve DIRECTOR GLOBAL STRATEGIC PUBLISHER SALES for the vaginal discharge. Continue with current diagnosis. Patient continues to meet criteria for inpatient psychiatric admission for symptom stabilization and safety.[Patient will be maintained on current psychotropic medication regimen.] Monitor for medication compliance and for any psychotropic medication side effects. Will continue to monitor ongoing response to treatment. Encouraged participation in milieu.
--- NOTE | 2023-10-08 10:42 | US ---
EXAMINATION TYPE: Transabdominal DATE OF EXAM: 10/08/2023 10:27 AM COMPARISON: NONE CLINICAL INDICATION: Female, 18 years old with history of pink discharge; Patient on mental health fl oor stating she has pink discharge and nausea. A1 EXAM PERFORMED: OBTA EXAM MEASUREMENTS: GESTATIONAL AGE / DATING Physician Established: ( 7 weeks/5 days) EDC: 05/21/2024 Dates by LMP: LMP unknown Dates by First Scan: ( 7 weeks/4 days) EDC: 05/22/2024 Dates by Current Scan for: (7 weeks/2 days) EDC: 05/24/2024 MATERNAL ANATOMY Uterus: 6.6 x 7.0 x 5.9cm Right Ovary: 3.0 x 2.2 x 2.6cm Left Ovary: 2.4 x 2.1 x 2.2cm Post CDS / Adnexa: wnl Presence of free fluid: no Presence of corpus luteal cyst: yes, right ovary = 2.2 x 1.7 x 1.6cm Presence of subchorionic bleed: no GESTATION / SURVEY CRL: 1.1cm (7 weeks/2 days) MSD: wnl Yolk Sac (normal less than 6mm): 0.3cm Heart Rate: 149 bpm Rhythm: Normal IUP: Viable IUP Date of LMP: unknown Beta HcG (if available): not available IMPRESSION: Single live intrauterine gestation with ultrasound gestational age of 7 weeks 2 days via [place]-rump l ength.
[2023-10-09] MEDS: PRENATAL VIT-IRON-FOLIC ACID 1 EACH TABLET PO SCH (08:50)
[2023-10-09] MEDS: ARIPiprazole 5 MG TAB PO SCH (08:50)
[2023-10-09] MEDS: ACETAMINOPHEN TAB 325 MG TAB PO PRN (08:52)
--- NOTE | 2023-10-09 10:13 | P.DS ---
Providers Date of admission: 09/19/23 13:55 Expected date of discharge: 10/09/23 Attending physician: Rui Pagan MD Consults: 09/19/23 13:58 Consult Physician Routine Consulting Provider: Mark Roman Consult Reason/Comments: history and physical Do you want consulting provider notified?: Already Contacted 09/20/23 09:57 Consult Physician Routine Consulting Provider: Brittaney Dillon Consult Reason/Comments: UTI in Do you want consulting provider notified?: Yes 09/20/23 12:17 Consult Physician Routine Consulting Provider: Myles Melissa Consult Reason/Comments: UTI in Do you want consulting provider notified?: Yes Primary care physician: Carolann Page - Discharge Diagnosis(es) (1) Bipolar disorder, current episode manic, severe Current Visit: Yes Status: Acute Priority: High (2) Cannabis use disorder Current Visit: Yes Status: Acute Priority: Medium Hospital Course: Admission HPI: Admission note was completed by mortgage loan underwriter "Patient is a single, employed, 18-year-old female, works as a hairdresser, , lives in a house with her fianc. Patient presented to the hospital initially on 09/15, with reported poor sleep for the past several days, was hyperverbal, concerned about being for the past 4 weeks. Patient apparently has a history of bipolar disorder. Patient was petitioned by her mother states that "bipolar manic, unable to care for self, may harm self and unborn baby". Patient [employer] is positive for RTC. Patient was seen today and agreeable district mortgage loan underwriter in the office. Rachel issues of him having a hard time and stressed lately. Claims that she was going to her sister's house to see her. She claims that she had a "panic attack" and was rambling during the conversation, was tangential and circumstantial. Patient also displayed loose associations, flight of ideas and racing thoughts. She spoke about almost having an asthma attack before coming into the hospital. She was fairly preoccupied with her baby and the health of her child. She had fairly poor decision making, was fairly hesitant about taking medications. She claims her sleep has been fairly poor lately, appetite as been fair, states that she was arguing with another patient earlier today, states that she is feeling "tired", denies any depression at this time states that she is feeling somewhat anxious. the patient is not reporting any visual hallucinations or any auditory hallucinations. She is currently not reporting any suicidal or homicidal ideation, intention, and/or plan. She claims that she was smoking marijuana however has stopped recently due to finding out that she was recently . She believes that she is around for 5 weeks into the . She denies any other recreational drug use." Hospital course: Upon admission to the unit patient was admitted involuntarily on a petition and certificate and a second certificate was completed and faxed with the courts. Patient ended up receiving a mental health court order during her hospitalization. Patient was initially fairly argumentative and also hostile and forthcoming treatment she eventually got along well with other patients on the unit and followed unit protocol. Patient was compliant with the medications and denied any side effects throughout hospital course. Patient was started on Seroquel and took a few doses however stopped on her own, she was agreeable afterwards to take Abilify as it has helped her in the past. patient was agreeable to take abilify 2.5 mg daily po for mood stabilization. Pattern Room Attendant reviewed the safety/risk profile and possible teratogenicity with regards to her baby however the risk or non treatment outweighs the risk of treatment with the medication. Patient spoke of her stressors and engaged in therapy both group and individual. Patient was also seen by medical team for history and physical exam. Patient was also seen by SALESFORCE TRAINER for consultation due to patient being . Patient was started on antinausea medications recommended by SALESFORCE TRAINER. Patient also had ultrasounds to monitor the development of the baby. Throughout the course of the hospitalization patient gradually improved with regards to mood, anxiety, mood lability, intrusiveness, sleep and returned back to their baseline level of functioning. On the day of discharge patient denied any suicidal or homicidal ideations intent or plan denied any auditory or visual hallucinations. Patient endorsed wanting to live for her health and her baby. The patient denied any access to guns or weapons. Patient denied any paranoia and did not endorse any delusions. Patient does not have a significant history of substance abuse and was counseled on abstaining from all substances including alcohol and marijuana. Patient was also counseled on the medications and need for regular compliance and was encouraged to follow-up with their outpatient appointment for mental health and also for primary care. Prior to discharge a family meeting will be arranged by social service worker to answer any questions and ensure safety upon discharge. patient will be going to her mothers house to stay for the meantime and then she will be followign up with [facility] Mental status exam: General Appearance: Patient appears to be thin, has dyed green hair, stated age is alert, pleasant, and cooperative. Patient is in no acute distress and has improved hygiene and grooming Behavior: Patient is calmly seated without any agitated behavior. Speech: Patient's speech is fluent and nonpressured. Mood/Affect: Patient reports their mood is "good", affect is congruent and euthymic. Suicidality/Homicidality: Patient denies having any suicidal or homicidal ideation intent or plan. Perceptions: Patient denies any auditory or visual hallucinations. Though content/process: There is no evidence of any delusional thought content and thought process is linear and goal-directed. more future oriented Memory and concentration: AOX3, grossly intact for the purposes of this session. Can spell "WORLD" backwards correctly. Judgment and insight: improved with guarded prognosis Impression: Bipolar disorder, current episode jose severe Cannabis use disorder Plan: -Continue with discharge today as patient has improved and stabilized psychiatrically and is not currently an imminent threat to herself and/or others. Patient will remain at chronically elevated risk for harm to self and/or others due to her impulsivity. -Continue medications: abilify 2.5 mg daily for mood stabilization/bipolar. patient will also be given reglan prn for 10 more days. -Patient was counseled on the need for medication compliance and appropriate follow-up at mental health and also primary care for medical issues. Patient verbalized understanding and agreed. -Social work to arrange for and conduct family meeting to ensure safety upon discharge and answer any questions/concerns. Social work also to arrange for patients follow up appointments with [facility] and with her ONGYN for and psychiatric care along with follow up with primary care provider. -Patient counseled on abstaining from recreational drugs and marijuana and alcohol. Was informed/educated on the adverse effects on their physical and mental health. Patient verbally agreed and understood. -Patient was instructed to return to the hospital or seek immediate medical care if their psychiatric or medical symptoms do worsen or reoccur. Allergies Allergy/AdvReac Type Severity Reaction Status Date / Time No Known Allergies Allergy Verified 09/21/23 15:13 Laboratory Results WBC 12.4 k/uL (4.0-11.0) H 09/20/23 10:06 RBC 4.84 m/uL (3.80-5.40) 09/20/23 10:06 Hgb 15.1 gm/dL (11.4-16.0) 09/20/23 10:06 Hct 44.4 % (34.0-46.0) 09/20/23 10:06 MCV 91.9 fL (80.0-100.0) 09/20/23 10:06 MCH 31.1 pg (25.0-35.0) 09/20/23 10:06 MCHC 33.9 g/dL (31.0-37.0) 09/20/23 10:06 RDW 13.2 % (11.5-15.5) 09/20/23 10:06 Plt Count 281 k/uL (150-450) 09/20/23 10:06 MPV 8.5 09/20/23 10:06 Neutrophils % 90 % 09/16/23 01:09 Lymphocytes % 5 % 09/16/23 01:09 Monocytes % 4 % 09/16/23 01:09 Eosinophils % 0 % 09/16/23 01:09 Basophils % 0 % 09/16/23 01:09 Neutrophils # 17.6 k/uL (1.3-7.7) H 09/16/23 01:09 Lymphocytes # 1.1 k/uL (1.0-4.8) 09/16/23 01:09 Monocytes # 0.7 k/uL (0-1.0) 09/16/23 01:09 Eosinophils # 0.0 k/uL (0-0.7) 09/16/23 01:09 Basophils # 0.0 k/uL (0-0.2) 09/16/23 01:09 Sodium 138 mmol/L (137-145) 09/20/23 10:06 Potassium 3.8 mmol/L (3.5-5.1) 09/20/23 10:06 Chloride 102 mmol/L (98-107) 09/20/23 10:06 Carbon Dioxide 23 mmol/L (22-30) 09/20/23 10:06 Anion Gap 13 mmol/L 09/20/23 10:06 BUN 7 mg/dL (7-17) 09/20/23 10:06 Creatinine 0.58 mg/dL (0.52-1.04) 09/20/23 10:06 Est GFR (CKD-EPI)AfAm >90 (>60 ml/min/1.73 sqM) 09/20/23 10:06 Est GFR (CKD-EPI)NonAf >90 (>60 ml/min/1.73 sqM) 09/20/23 10:06 Glucose 98 mg/dL (74-99) 09/20/23 10:06 Calcium 10.0 mg/dL (8.4-10.2) 09/20/23 10:06 Magnesium 2.0 mg/dL (1.6-2.3) 09/20/23 10:06 Total Bilirubin 0.7 mg/dL (0.2-1.3) 09/20/23 10:06 AST 29 U/L (14-36) 09/20/23 10:06 ALT 35 U/L (4-34) H 09/20/23 10:06 Alkaline Phosphatase 91 U/L (38-126) 09/20/23 10:06 Total Protein 7.7 g/dL (6.3-8.2) 09/20/23 10:06 Albumin 4.7 g/dL (3.5-5.0) 09/20/23 10:06 TSH 1.240 mIU/L (0.465-4.680) 09/20/23 10:06 HCG, Qual Detected 09/22/23 10:05 HCG, Quant 7409.8 mIU/mL 09/23/23 10:40 Urine Color Colorless 09/20/23 19:14 Urine Appearance Clear (Clear) 09/20/23 19:14 Urine pH 7.0 (5.0-8.0) 09/20/23 19:14 Ur Specific [place] 1.005 (1.001-1.035) 09/20/23 19:14 Urine Protein Negative (Negative) 09/20/23 19:14 Urine Glucose (UA) Negative (Negative) 09/20/23 19:14 Urine Ketones Negative (Negative) 09/20/23 19:14 Urine Blood Negative (Negative) 09/20/23 19:14 Urine Nitrite Negative (Negative) 09/20/23 19:14 Urine Bilirubin Negative (Negative) 09/20/23 19:14 Urine Urobilinogen <2.0 mg/dL (<2.0) 09/20/23 19:14 Ur Leukocyte Esterase Large (Negative) H 09/20/23 19:14 Urine RBC 11 /hpf (0-5) H 09/20/23 19:14 Urine WBC 22 /hpf (0-5) H 09/20/23 19:14 Ur Squamous Epith Cells 4 /hpf (0-4) 09/20/23 19:14 Urine Bacteria Rare /hpf (None) H 09/20/23 19:14 Hyaline Casts 1 /lpf (0-2) 09/20/23 19:14 Urine Mucus Rare /hpf (None) H 09/20/23 19:14 Urine HCG, Qual Detected (Not Detectd) 09/15/23 23:46 Urine Opiates Screen Not Detected (NotDetected) 09/15/23 23:46 Ur Oxycodone Screen Not Detected (NotDetected) 09/15/23 23:46 Urine Methadone Screen Not Detected (NotDetected) 09/15/23 23:46 Ur Propoxyphene Screen Not Detected (NotDetected) 09/15/23 23:46 Ur Barbiturates Screen Not Detected (NotDetected) 09/15/23 23:46 U Tricyclic Antidepress Not Detected (NotDetected) 09/15/23 23:46 Ur Phencyclidine Scrn Not Detected (NotDetected) 09/15/23 23:46 Ur Amphetamines Screen Not Detected (NotDetected) 09/15/23 23:46 U Methamphetamines Scrn Not Detected (NotDetected) 09/15/23 23:46 U Benzodiazepines Scrn Not Detected (NotDetected) 09/15/23 23:46 Urine Cocaine Screen Not Detected (NotDetected) 09/15/23 23:46 U Marijuana (THC) Screen Detected (NotDetected) H 09/15/23 23:46 Coronavirus (PCR) Not Detected (Not Detectd) 09/18/23 11:32 Vital Signs Temp 96.8 F L 10/07/23 06:44 Pulse 115 H 10/07/23 06:44 Resp 13 10/07/23 06:44 BP 120/71 10/07/23 06:44 Pulse Ox 100 10/05/23 08:29 FiO2 Intake & Output 10/08/23 10/09/23 10/09/23 18:59 06:59 18:59 Weight 53.6 kg Patient Condition at Discharge: Stable Plan - Discharge Summary New Discharge Prescriptions: New ARIPiprazole [Abilify] 2.5 mg PO DAILY 30 Days #15 tab Metoclopramide [Reglan] 10 mg PO AC-BID PRN 10 Days #20 tab PRN Reason: Nausea And Vomiting Albuterol Inhaler [Ventolin Hfa Inhaler] 1 puff INHALATION RT-QID PRN #1 each PRN Reason: Shortness Of Breath Or Wheezing Discontinued cefUROXime axetiL [Ceftin] 500 mg PO DIRECTED Ondansetron Odt [Zofran Odt] 4 mg PO DAILY Famotidine [Pepcid] 20 mg PO BID Discharge Medication List ARIPiprazole [Abilify] 2.5 mg PO DAILY 30 Days #15 tab 10/09/23 [Rx] Albuterol Inhaler [Ventolin Hfa Inhaler] 1 puff INHALATION RT-QID PRN #1 each 10/09/23 [Rx] Metoclopramide [Reglan] 10 mg PO AC-BID PRN 10 Days #20 tab 10/09/23 [Rx] Follow up Appointment(s)/Referral(s): Carolann Page [Primary Care Provider] - 1-2 days Activity/Diet/Wound Care/Special Instructions: Avoid the use of street drugs and alcohol. Take all medications as prescribed. When you are in need of refills on your medications, please contact your medical provider and/or outpatient psychiatrist/provider to have this done. Please go to your scheduled outpatient appointment for aftercare treatment. If symptoms return or become worse, call the crisis line at and/or go to the nearest emergency room for evaluation. National Suicide Hotline 988. Discharge Disposition: HOME SELF-CARE
[2023-10-09] MEDS: ALBUTEROL INHALER 60 PUFF/8 GM INHALER (MHU) INHALATION PRN (13:29)
[2023-10-09] MEDS: METOCLOPRAMIDE 10 MG TAB PO PRN (13:29)
== END 2023-10-09 13:50 | disposition home or self-care (01) | DRG 566 ==
LOC: EC 20:11 → 3MHU 09-18 14:25 → UNDOADMIN 09-18 14:25 → 3MHU 09-19 13:55
PROVIDERS: ADMIT Psychiatry & Neurology Psychiatry; ATTEND Psychiatry & Neurology Psychiatry
DX: O99.341 Other mental disorders complicating pregnancy, first trimester (principal); Z3A.01 Less than 8 weeks gestation of pregnancy; F31.13 Bipolar disorder, current episode manic without psychotic features, severe; F12.10 Cannabis abuse, uncomplicated; Z71.51 Drug abuse counseling and surveillance of drug abuser; F41.0 Panic disorder [episodic paroxysmal anxiety]; Z71.89 Other specified counseling; O99.321 Drug use complicating pregnancy, first trimester; O21.0 Mild hyperemesis gravidarum; F90.9 Attention-deficit hyperactivity disorder, unspecified type; Z78.1 Physical restraint status; F17.290 Nicotine dependence, other tobacco product, uncomplicated; R45.851 Suicidal ideations; O23.41 Unspecified infection of urinary tract in pregnancy, first trimester; N39.0 Urinary tract infection, site not specified; P04.2 Newborn affected by maternal use of tobacco; N83.11 Corpus luteum cyst of right ovary; Z79.899 Other long term (current) drug therapy; Z79.2 Long term (current) use of antibiotics; Z91.011 Allergy to milk products; Z28.21 Immunization not carried out because of patient refusal; Z81.8 Family history of other mental and behavioral disorders
CPT/HCPCS: 36415; 76801; 76817; 80053; 80306; 81001; 81025; 83735; 84443; 84702; 84703; 85025; 85027; 87086; 93005; 96360; 96361; 96372; 99285

== ENCOUNTER 2023-10-23 14:13 | Inpatient (IN) | payer OTHER ==
--- NOTE | 2023-10-23 16:23 | ED ---
General Adult HPI - General Chief complaint: Psychiatric Symptoms Stated complaint: mental health Time Seen by Provider: 10/23/23 15:42 Source: patient Mode of arrival: ambulatory Limitations: no limitations - History of Present Illness Initial comments: 18-year-old female brought in for psychiatric evaluation. Patient was brought in on a court order warehouse order picker by [employer]. She is currently going through a manic episode, she is hyperverbal and delusional. She denies any suicidal or homicidal ideation. She is currently about 9 weeks . Review of systems is limited due to the patient's current flight of ideas and difficulty redirecting. - Related Data Home Medications Medication Instructions Recorded Confirmed No Known Home Medications 10/23/23 10/23/23 Allergies Allergy/AdvReac Type Severity Reaction Status Date / Time No Known Allergies Allergy Verified 10/23/23 16:30 Review of Systems ROS Statement: Those systems with pertinent positive or pertinent negative responses have been documented in the HPI. ROS Other: All systems not noted in ROS Statement are negative. Past Medical History Past Medical History: No Reported History, Asthma Additional Past Medical History / Comment(s): Pt is 5 weeks . History of Any Multi-Drug Resistant Organisms: None Reported Past Surgical History: Tonsillectomy Past Anesthesia/Blood Transfusion Reactions: No Reported Reaction Additional Past Anesthesia/Blood Transfusion Reaction / Comment(s): NO PROBLEMS WITH ANESTHESIA Past Psychological History: No Psychological Hx Reported, ADD/ADHD Smoking Status: Never smoker, Vaper Past Alcohol Use History: Occasional Past Drug Use History: Marijuana - Past Family History Mother Family Medical History: No Reported History Father Family Medical History: No Reported History General Exam Limitations: no limitations General appearance: alert, other (Manic) Head exam: Present: atraumatic, normocephalic, normal inspection Eye exam: Present: normal appearance Neck exam: Present: normal inspection, full ROM Respiratory exam: Absent: respiratory distress Extremities exam: Present: normal inspection, full ROM Back exam: Present: normal inspection Neurological exam: Present: alert Psychiatric exam: Present: manic Skin exam: Present: warm, dry Course Vital Signs 10/23/23 15:21 Temperature 98.0 F Pulse Rate 126 H Respiratory 18 Rate Blood Pressure 112/86 O2 Sat by Pulse 96 Oximetry Medical Decision Making - Medical Decision Making Was pt. sent in by a medical professional or institution (, PA, MASTER AUTOMOTIVE GLASS TECHNICIAN, urgent care, hospital, or prison...) When possible be specific @ -No Did you speak to anyone other than the patient for history (EMS, parent, family, police, friend...)? What history was obtained from this source @ -No Did you review nursing and triage notes (agree or disagree)? Why? @ -I reviewed and agree with nursing and triage notes Were old charts reviewed (outside hosp., previous admission, EMS record, old EKG, old radiological studies, urgent care reports/EKG's, prison records)? Report findings @ -No old charts were reviewed Differential Diagnosis (chest pain, altered mental status, abdominal pain women, abdominal pain men, vaginal bleeding, weakness, fever, dyspnea, syncope, headache, dizziness, GI bleed, back pain, seizure, CVA, palpatations, mental health, musculoskeletal)? @ -Differential Mental Health Depression, anxiety, bipolar, psychosis, schizophrenia, borderline personality, situational depression, adjustment disorder, behavioral disorder, brain tumor, malingering, substance abuse, encephalopathy, medication reaction, dementia, hypothyroidism, degenerative neurologic disorder, lupus.... This is not meant to be all-inclusive list EKG interpreted by me (3pts min.). @ -As above X-rays interpreted by me (1pt min.). @ -None done CT interpreted by me (1pt min.). @ -None done U/S interpreted by me (1pt. min.). @ -None done What testing was considered but not performed or refused? (CT, X-rays, U/S, labs)? Why? @ -None What meds were considered but not given or refused? Why? @ -None Did you discuss the management of the patient with other professionals (professionals i.e. , PA, MASTER AUTOMOTIVE GLASS TECHNICIAN, lab, RT, psych nurse, social media marketing specialist, contact center director, teacher, media liaison officer, casework supervisor)? Give summary @ -I spoke with Tracey Yanez from [facility] who accepted admission Was smoking cessation discussed for >3mins.? @ -No Was critical care preformed (if so, how long)? @ -No Were there social determinants of health that impacted care today? How? (Homelessness, low income, unemployed, alcoholism, drug addiction, transportation, low edu. Level, literacy, decrease access to med. care, [place] [facility], rehab)? @ -No Was there de-escalation of care discussed even if they declined (Discuss DNR or withdrawal of care, Hospice)? DNR status @ -No What co-morbidities impacted this encounter? (DM, HTN, Smoking, COPD, CAD, Cancer, CVA, ARF, Chemo, Hep., AIDS, mental health diagnosis, sleep apnea, morbid obesity)? @ -None Was patient admitted / discharged? Hospital course, mention meds given and route, prescriptions, significant lab abnormalities, going to OR and other pertinent info. @ -18-year-old female currently about 9 weeks presenting for mental health evaluation. Patient is currently experiencing a manic episode. She is hyperverbal and difficult to redirect. No suicidal or homicidal ideation. No signs of distress. Patient was evaluated by EPS and will require admission. Patient is Covid positive, she will be admitted to medicine with psychiatric and INSURANCE CLAIMS PROCESSOR consult. I discussed this case with my attending Dr. Carpio Undiagnosed new problem with uncertain prognosis? @ -No Drug Therapy requiring intensive monitoring for toxicity (Heparin, Nitro, Insulin, Cardizem)? @ -No Were any procedures done? @ -No Diagnosis/symptom? @ -rhianna Acute, or Chronic, or Acute on Chronic? @ -acute Uncomplicated (without systemic symptoms) or Complicated (systemic symptoms)? @ -complicated Side effects of treatment? @ -No Exacerbation, Progression, or Severe Exacerbation? @ -No Poses a threat to life or bodily function? How? (Chest pain, [place], [place], pneumonia, PE, COPD, DKA, ARF, appy, cholecystitis, CVA, Diverticulitis, Homicidal, Suicidal, threat to staff... and all critical care pts) @ -yes - Lab Data Lab Results 10/23/23 10/23/23 10/23/23 Range/Units 16:11 16:11 17:00 Urine Color Light Yellow Urine Appearance Clear (Clear) Urine pH 7.0 (5.0-8.0) Ur Specific Boyd 1.006 (1.001-1.035) Urine Protein Negative (Negative) Urine Glucose (UA) Negative (Negative) Urine Ketones Negative (Negative) Urine Blood Negative (Negative) Urine Nitrite Negative (Negative) Urine Bilirubin Negative (Negative) Urine Urobilinogen <2.0 (<2.0) mg/dL Ur Leukocyte Esterase Large (Negative) Urine RBC 16 H (0-5) /hpf Urine WBC 14 H (0-5) /hpf Ur Squamous Epith Cells 1 (0-4) /hpf Urine Bacteria Rare H (None) /hpf Urine HCG, Qual Detected (Not Detectd) Urine Opiates Screen Not Detected (NotDetected) Ur Oxycodone Screen Not Detected (NotDetected) Urine Methadone Screen Not Detected (NotDetected) Ur Propoxyphene Screen Not Detected (NotDetected) Ur Barbiturates Screen Not Detected (NotDetected) U Tricyclic Antidepress Not Detected (NotDetected) Ur Phencyclidine Scrn Not Detected (NotDetected) Ur Amphetamines Screen Not Detected (NotDetected) U Methamphetamines Scrn Not Detected (NotDetected) U Benzodiazepines Scrn Not Detected (NotDetected) Urine Cocaine Screen Not Detected (NotDetected) U Marijuana (THC) Screen Detected H (NotDetected) SARS-CoV-2 (PCR) Detected A (Not Detectd) Disposition Clinical Impression: Rhianna, COVID-19 Disposition: ADMITTED IP TO THIS HOSP Condition: Fair Time of Disposition: 19:26
[2023-10-23 16:46] LABS: Amphetamine Screen,Urine Not Detected (NotDetected); Barbiturate Screen,Urine Not Detected (NotDetected); Benzodiazepines Screen,Urine Not Detected (NotDetected); Cocaine Screen,Urine Not Detected (NotDetected); Methadone Screen, Urine Not Detected (NotDetected); Opiate Screen,Urine Not Detected (NotDetected); Oxycodone Screen, Urine Not Detected (NotDetected); Phencyclidine Screen,Urine Not Detected (NotDetected); Tricyclic Antidepressant,Urine Not Detected (NotDetected); Urn Cannabinoid Scrn Detected (NotDetected)
[2023-10-23 16:49] LABS: Appearance,Urine Clear (Clear); Color,Urine Light Yellow
[2023-10-23 16:50] LABS: Bilirubin,Urine Negative (Negative); Blood,Urine Negative (Negative); Glucose,Urine (UA) Negative (Negative); Ketones,Urine Negative (Negative); Leukocyte Esterase,Urine Large (Negative); Nitrite,Urine Negative (Negative); Protein,Urine Negative (Negative); Urobilinogen,Urine <2.0 mg/dL (<2.0)
[2023-10-23 16:52] LABS: Bacteria,Urine Rare /hpf; RBC,Urine 16 /hpf (0-5); Squamous Epithelial Cell,Urine 1 /hpf (0-4); WBC,Urine 14 /hpf (0-5)
[2023-10-23 16:55] LABS: Specific Gravity,Urine 1.006 (1.001-1.035)
[2023-10-23] MEDS ORDERED: CEPHALEXIN 500 MG CAP PO STA (17:05)
[2023-10-23] MEDS ORDERED: diphenhydrAMINE 50 MG/ML 1 ML VIAL IM STA (17:42)
[2023-10-23] MEDS ORDERED: ZIPRASIDONE 20 MG VIAL IM STA (18:13)
[2023-10-23] MEDS ORDERED: ZIPRASIDONE 20 MG VIAL IM PRN (19:18)
[2023-10-23] MEDS ORDERED: ZIPRASIDONE 20 MG CAP PO PRN (19:18)
[2023-10-23] MEDS ORDERED: NALOXONE 0.4 MG/ML 1 ML VIAL IV PRN (19:23)
[2023-10-24] MEDS: LORazepam 1 MG TAB PO STA ×2 (05:26→05:43)
[2023-10-24] MEDS ORDERED: diphenhydrAMINE 25 MG CAP PO STA (05:29)
[2023-10-24] MEDS ORDERED: LORazepam 2 MG/ML INJ IM STA (05:43)
--- NOTE | 2023-10-24 11:44 | XR ---
EXAMINATION TYPE: XR chest 1V portable DATE OF EXAM: 10/24/2023 COMPARISON: NONE HISTORY: Cough TECHNIQUE: Single frontal view of the chest is obtained. FINDINGS: There is no focal air space opacity, pleural effusion, or pneumothorax seen. The cardiac silhouette size is within normal limits. The osseous structures are intact. Limited inspiration. Mi ld central prominent interstitial markings. IMPRESSION: Correlate for mild bronchitis or interstitial pneumonitis.
[2023-10-24 11:45] LABS: Basophils % (A) 0 %; Eosinophils % (A) 1 %; HGB 13.4 gm/dL (11.4-16.0); Lymphocytes # (A) 1.5 k/uL (1.0-4.8); Lymphocytes % (A) 19 %; MCH 31.2 pg (25.0-35.0); MCHC 33.5 g/dL (31.0-37.0); MCV 93.1 fL (80.0-100.0); Mean Platelet Volume 8.2; Monocytes # (A) 0.3 k/uL (0-1.0); Monocytes % (A) 4 %; Neutrophils # (A) 5.7 k/uL (1.3-7.7); Neutrophils % (A) 74 %; Platelet Count 179 k/uL (150-450); RBC 4.29 m/uL (3.80-5.40); RDW 13.1 % (11.5-15.5); WBC 7.8 k/uL (4.0-11.0)
[2023-10-24] MEDS ORDERED: ACETAMINOPHEN TAB 500 MG TAB PO PRN (11:53)
[2023-10-24 12:00] LABS: ALT 18 U/L (4-34); AST 26 U/L (14-36); African American GFR (CKD) >90 (>60 ml/min/1.73 sqM); Albumin 3.3 g/dL (3.5-5.0); Albumin/Globulin Ratio 1.4; Alkaline Phosphatase 55 U/L (38-126); Anion Gap 10 mmol/L; Blood Urea Nitrogen <2 mg/dL (7-17); C Reactive Protein 0.6 mg/dL (<1.0); Calcium 8.5 mg/dL (8.4-10.2); Carbon Dioxide 20 mmol/L (22-30); Chloride 108 mmol/L (98-107); Globulin 2.3 g/dL; Glucose 79 mg/dL (74-99); Non-African American GFR(CKD) >90 (>60 ml/min/1.73 sqM); Potassium 3.5 mmol/L (3.5-5.1); Sodium 138 mmol/L (137-145); Total Bilirubin 0.3 mg/dL (0.2-1.3); Total Protein 5.6 g/dL (6.3-8.2)
--- NOTE | 2023-10-24 12:53 | HP ---
HISTORY AND PHYSICAL CHIEF COMPLAINT: Psychiatric symptoms. HISTORY OF PRESENT ILLNESS: This is a 18-year-old woman with a past medical history of multiple medical issues including asthma, history of ADD ADHD, history of vaping, is 9 months . The patient apparently had some psychiatric symptoms including manic episodes, hallucination, hyperverbal, delusional, and the patient was picked up by the police department per court order. Patient admitted for further evaluation. COVID-19 is positive. The patient is oxygenating well. There is no history of any fever, rigors, or chills at this time. PAST MEDICAL HISTORY: Asthma, ADD, ADHD, rest of the history and rest of the chart is also reviewed. HOME MEDICATIONS: None. ALLERGIES: None. FAMILY HISTORY: No history of heart disease or strokes in the family. SOCIAL HISTORY: Vaping, occasional alcohol and THC. REVIEW OF SYSTEMS: A 14-point review is negative except as mentioned earlier. PHYSICAL EXAMINATION: VITAL SIGNS: Pulse is 115, blood pressure 101/62, respirations 16. HEENT: Conjunctivae normal. NECK: No jugular venous distention. CARDIOVASCULAR: S1, S2. RESPIRATIONS: Breath sounds diminished at the bases. ABDOMEN: Soft, . LEGS: No edema, no swelling. NERVOUS SYSTEM: Nonfocal. LABORATORY DATA: Reviewed. ASSESSMENT: 1. Acute manic episode, rule out psychosis. 2. Acute COVID-19 infection. 3. Nine months' . 4. History of ADD, ADHD. 5. History of vaping. 6. History of THC. RECOMMENDATIONS: Recommended to continue current management, continue symptomatic treatment. We will provide symptomatic treatment. The COVID-19 appears to be stable at this time. Supplement vitamins and Psychiatry and OB-[facility] evaluation has been sought. The prognosis is guarded because of multiple complex medical issues. I would also recommend to obtain a baseline and D-dimer and CRP and CMP also. Further recommendations to follow, see orders for details. MMODL / IJN: [id number] /
[2023-10-24] MEDS: MULTIVITAMINS, THERA 1 EACH TAB PO SCH (13:15)
--- NOTE | 2023-10-24 13:57 | P.OBCN ---
History of Present Illness Consult date: 10/24/23 Reason for consult: other (early ) Chief complaint: , 9 weeks History of present illness: This is a 18yo at 9 weeks of that was admitted last evening to the hospital with positive COVID testing. She states she was "picked up by the police" while at her house because she was "going to steal her poppas truck" she was admitted previously for a manic episode and was here at [facility] multiple weeks, was confirmed at that visit. she denies any vaginal bleeding since her last visit, and states the is "fine" She states she was seen at [facility], but hasn't established for OB care, she states she is fine and has "people taking care of her outside here". she admits to taking marijuana edibles to sleep and states she is trying to cut down on her tobacco use. OB history she states she had a prior MAB that she passed on her own current Review of Systems Constitutional: Denies chills, Denies fatigue, Denies fever Ears, nose, mouth and throat: Denies headache Cardiovascular: Denies leg edema Respiratory: Denies dyspnea Genitourinary: Reports Past Medical History Past Medical History: No Reported History, Asthma Additional Past Medical History / Comment(s): Pt is 5 weeks . History of Any Multi-Drug Resistant Organisms: None Reported Past Surgical History: Tonsillectomy Past Anesthesia/Blood Transfusion Reactions: No Reported Reaction Additional Past Anesthesia/Blood Transfusion Reaction / Comm: NO PROBLEMS WITH ANESTHESIA Past Psychological History: No Psychological Hx Reported, ADD/ADHD Smoking Status: Never smoker, Vaper Past Alcohol Use History: Occasional Past Drug Use History: Marijuana - Past Family History Mother Family Medical History: No Reported History Father Family Medical History: No Reported History Medications and Allergies Home Medications Medication Instructions Recorded Confirmed Type No Known Home Medications 10/23/23 10/23/23 History Allergies Allergy/AdvReac Type Severity Reaction Status Date / Time No Known Allergies Allergy Verified 10/23/23 16:30 Exam Osteopathic Statement: *. No significant issues noted on an osteopathic structural exam other than those noted in the History and Physical/Consult. Vital Signs Temp Pulse Pulse Resp BP BP Pulse Ox 10/24/23 07:37 98.4 F 115 H 16 101/64 98 10/24/23 07:00 97.5 F L 100 19 116/77 100 10/23/23 15:21 98.0 F 126 H 18 112/86 96 Intake and Output 10/23/23 10/24/23 10/24/23 22:59 06:59 14:59 Intake Total 0 Balance 0 Intake: Oral 0 Other: Weight 68.039 kg in general she appears well, breathing is unlabored. pelvic exam is deferred Results Result Diagrams: 10/24/23 11:31 10/24/23 11:31 Abnormal Lab Results - Last 24 Hours (Table) 10/23/23 10/23/23 10/24/23 Range/Units 16:11 17:00 11:31 Chloride 108 H (98-107) mmol/L Carbon Dioxide 20 L (22-30) mmol/L BUN <2 L (7-17) mg/dL Creatinine 0.43 L (0.52-1.04) mg/dL Total Protein 5.6 L (6.3-8.2) g/dL Albumin 3.3 L (3.5-5.0) g/dL Urine RBC 16 H (0-5) /hpf Urine WBC 14 H (0-5) /hpf Urine Bacteria Rare H (None) /hpf U Marijuana (THC) Screen Detected H (NotDetected) SARS-CoV-2 (PCR) Detected A (Not Detectd) Assessment and Plan (1) Cannabis use disorder, mild, abuse Current Visit: No Status: Acute Priority: Medium Code(s): F12.10 - CANNABIS ABUSE, UNCOMPLICATED SNOMED Code(s): 98829452 (2) Nicotine dependence Current Visit: No Status: Acute Priority: Low Code(s): F17.200 - NICOTINE DEPENDENCE, UNSPECIFIED, UNCOMPLICATED SNOMED Code(s): 55368496 (3) Current Visit: No Status: Acute Code(s): Z34.90 - ENCNTR FOR SUPRVSN OF NORMAL , UNSP, UNSP TRIMESTER SNOMED Code(s): 52369622 Plan: -year-old 2 para 0010 at approximate 9 weeks of that presents with positive coated. Patient had a prior ultrasound revealing intrauterine , will obtain ultrasound for confirmation of heart tones given her early gestational age. We'll encourage daily vitamin. Discussed marijuana and tobacco use, patient states she is trying to cut down. Patient is adamant that she has physicians taking care of her outside the hospital and is not desirous of my care. Once ultrasound is complete if normal, I will follow along in her care. If any questions arise please reach out. Thank you for the consult.
[2023-10-24] MEDS ORDERED: OLANZapine 10 MG VIAL IM PRN ×2 (14:34)
--- NOTE | 2023-10-24 14:40 | P.CN ---
Psychiatric Consult - . Consult date: 10/24/23 Consult:: 10/24/23 13:00 IDENTIFYING DATA: Patient is a single, employed, 18-year-old female, works as a hairdresser, , lives in a house with her fianc. Reason for consultation: Rhianna HPI: Patient presented to the hospital yesterday on a court order pickup by the police. Apparently patient is having a manic episode is hyperverbal delusional. Patient is 9 weeks according to ER report. Urine toxicity was positive for THC. Patient was found to be covid positive and admitted to the medical floors. Patient was last psychiatrically discharged from the mental health unit in September 2023 on Abilify low dose due to her and nausea. Patient was seen today, being aggressive and demanding nurses. Patient has a one-to-one sitter in her room. She was eating her lunch and agreeable to speak the television writer. She appeared to be fairly intrusive, abrasive and demanding. She does not believe that she needed hospitalization. She had pressured speech, flight of ideas, hostile towards television writer. Irritable tone. She claims "3 acid correction hand came towards me" and states that the current to the hospital. She claims that she does not know why they brought her in. She was minimizing her need for ho spitalization, poor insight and judgment. Claims that she is not taking any medications and believes that [facility] took her off medications. the patient is not reporting any visual hallucinations or any auditory hallucinations. She is currently not reporting any suicidal or homicidal ideation, intention, and/or plan. Patient tested positive for THC. She is currently . PAST PSYCHIATRIC HISTORY: The patient has been previously psychiatrically hospitalized on the mental health unit 1 month ago. Patient was previously placed on Risperdal in the past and most recentyl was dicharged on low dose abilify. she did fairly well prior to discharge. The patient has not been on any psychiatric medications recently.patient went to [facility] last in May 2022 however her case is closed. There is no reported prior suicide attempts. patient is currnetly on an active court order for MH treatment. PMH: Past Medical History: No Reported History History of Any Multi-Drug Resistant Organisms: None Reported Past Surgical History: Tonsillectomy Additional Past Anesthesia/Blood Transfusion Reaction / Comment(s): NO PROBLEMS WITH ANESTHESIA Past Psychological History: No Psychological Hx Reported Smoking Status: Vaper Past Alcohol Use History: Occasional Past Drug Use History: Marijuana ALLERGIES: Milk containing products CHEMICAL DEPENDENCY HISTORY: As per HPI FAMILY PSYCHIATRIC/SUBSTANCE USE HISTORY: Collateral information was provided to patient's mother. The patient's mother has depression and anxiety. The patient's father has a significant history of bipolar disorder, depression, anxiety, and substance use disorders. SOCIAL HISTORY: Patient is currently living with her fianc, they live in a house, she works as a hairdresser, She lives in [place]. She is currently however has no has no children. Denies any legal history. MENTAL STATUS EXAM: General Appearance: Patient appears to be stated age is alert, directable, and attempts to cooperate. Patient appears to have fair hygiene and grooming. The patient has numerous tattoos and has green hair with glasses. Behavior: Patient is seated without any agitated behavior. Psychomotor activity is elevated. Eye contact is intense. Demanding and aggressive Speech: Patient's speech is fluent, nonlinear, hyperverbal. Intentional Mood/Affect: Patient reports their mood is "fine" affect is bizarre and irritable. Expansive. Suicidality/Homicidality: Patient denies any suicidal or homicidal ideation, intention, and/or plan. Perceptions: Patient denies any visual hallucinations but she reports auditory hallucinations. Though content/process: The patient poor insight. Rambling. Tangential/circumstantial. with flight of ideas and loose associations. Memory and concentration: Memory and concentration appeared to be fair, patient is difficult to redirect. Alert and oriented 3. Judgment and insight: Poor/pulses. IMPRESSIONS: Bipolar disorder, current episode manic severe Cannabis use disorder PLAN: -At this time patient DOES meet criteria for inpatient psychiatric admission over due to patient being positive for covid she will continue receiving psychiatric care while on the medical floors. [-Would recommend the following medication changes/additions: Start Abilify 5 mg daily by mouth for mood stabilization. Patient is currently on a mental health court order and is required to take medications, if she is refusing then please give IM Zyprexa. -Continue 1:1 sitter for safety -Cannot leave AMA at this time. Patient will need a petition and certification if attempting to leave AMA. -Communicated plan to patient's nurse -Will continue to follow along -Please contact with any questions. 10/24/23 13:01 10/24/23 14:36
[2023-10-24] MEDS: ARIPiprazole 5 MG TAB PO SCH (16:01)
--- NOTE | 2023-10-24 17:15 | US ---
EXAMINATION TYPE: Transabdominal DATE OF EXAM: 10/24/2023 3:59 PM COMPARISON: US 10/08/2023 CLINICAL INDICATION: Female, 18 years old with history of 9 weeks; EXAM PERFORMED: Transabdominal (TA) EXAM MEASUREMENTS: GESTATIONAL AGE / DATING Physician Established: (10 weeks/0 days) EDC: 05/21/2024 Dates by LMP: (9 weeks/6 days) EDC: 05/22/2024 Dates by First Scan: (9 weeks/6 days) EDC: 05/22/2024 Dates by Current Scan for: (10 weeks/0 days) EDC: 05/21/2024 MATERNAL ANATOMY Uterus: 10.2 x 7.0 x 5.1 cm. Right Ovary: 3.5 x 2.0 x 2.2 cm. Left Ovary: 2.6 x 1.3 x 1.4 cm. Post CDS / Adnexa: Appear wnl Presence of free fluid: Not seen Presence of corpus luteal cyst: Possible within right ovary. Anechoic area seen: 1.9 x 1.4 x 1.5 cm. Presence of subchorionic bleed: No GESTATION / SURVEY CRL: 30.36 mm (10 weeks/0 days) Yolk Sac (normal less than 6mm): 4.9 mm Heart Rate: 158 bpm Rhythm: Normal IUP: Viable IUP Date of LMP: 08/15/2023 Beta HcG (if available): Not available IMPRESSION: Single live intrauterine gestation of 10 weeks 0 days.
[2023-10-25] MEDS ORDERED: diphenhydrAMINE 25 MG CAP PO STA (00:26)
[2023-10-25] MEDS ORDERED: ALBUTEROL HFA INHALER INHALATION SCH ×2 (08:00→22:42)
[2023-10-25] MEDS: ALBUTEROL HFA INHALER INHALATION SCH ×4 (08:42→20:16)
[2023-10-25] MEDS: ARIPiprazole 5 MG TAB PO SCH (11:16)
--- NOTE | 2023-10-25 13:29 | PN ---
PROGRESS NOTE DATE OF SERVICE: 10/25/2023 SUBJECTIVE: This is a 18-year-old woman, who was admitted with acute manic episode, was also COVID positive. The patient is 9-week also. Multiple consultants are following the patient closely. soda fountain manager and social workers are trying to find a place for psych patients with COVID could be accepted. The patient still has some manic episodes. PHYSICAL EXAMINATION: VITAL SIGNS: Pulse is 121, blood pressure 126/85, respirations 22. CHEST: Clear to auscultation. CARDIOVASCULAR: S1 and S2 muffled. NERVOUS SYSTEM: No focal deficits. LABORATORY DATA: Reviewed. ASSESSMENT: 1. Acute manic episode, possible bipolar disorder. 2. Acute COVID-19 infection. 3. Nine-weeks . 4. Attention deficit disorder/attention deficit hyperactivity disorder. 5. History of vaping. 6. History of THC. RECOMMENDATIONS: Recommend to continue current medical management. Continue symptomatic treatment. I would also recommend EKG to complete the workup. Further recommendations to follow. MMODL / IJN: [id number] /
[2023-10-25] MEDS: MULTIVITAMINS, THERA 1 EACH TAB PO SCH (14:34)
[2023-10-25] MEDS ORDERED: OLANZapine 5 MG TAB PO PRN (14:57)
[2023-10-25] MEDS ORDERED: OLANZapine 10 MG VIAL IM PRN ×2 (14:58→19:48)
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
[2023-10-25] MEDS ORDERED: HALOPERIDOL LACTATE 5 MG/ML 1 ML VIAL IM PRN (19:51)
[2023-10-25] MEDS ORDERED: QUEtiapine 50 MG TAB PO SCH (21:00)
--- NOTE | 2023-10-25 21:50 | P.MHFACE ---
Face to Face Restrain/Seclus - Evaluation Patient's Immediate Situation: Endangers self safety, Endangers staff safety Patient's Reaction to the Intervention: Appropriate, Calm Patient's Medical & Behavioral Condition: Awake, Alert, Anxious Need to Continue or Terminate Restraint or Seclusion: Continue Need to Continue or Terminate Restraint/Seclusion - Comment: Informed by the patient's RN and other floor staff that the patient was ripping out the equipment in the room and was concealing a metal bar from the TV equipment. The patient then also attempted self-harm by hitting the wall. Patient was also aggressive towards the staff and was verbally and physically posturing. The patient was seen at the bedside with 4 point restraints. She was anxious and somewhat combative. She had pressured speech and flight of ideas. Radial and dorsalis pedis pulses intact and equal bilaterally. The patient was given additional medications by RN per the recommendation of the on- call psychiatrist. Continue with the 4 point restraints for now with intent of discontinuing as soon as the patient is directable and no longer a threat to self or staff. Face to Face Eval of Restraint Date: 10/25/23 Face to Face Eval of Restraint Time: 21:25
--- NOTE | 2023-10-25 22:17 | P.PN ---
Progress Note - Text Progress Note Date: 10/25/23 This provider was paged by RN due to patient becoming increasingly agitated despite verbal redirection and being given Zyprexa 5mg IM. Patient is currently manic, in first trimester of , and is COVID-19 positive. She was evaluated by Dr. Pagan during the day. Reviewed notes. Given the risk of agitation resulting in harm to self and staff, recommended Zyprexa 10 mg TID PRN for agitation (PO with IM backup). Was paged again stating that Zyprexa did not improve symptoms, that patient remained agitated and therefore Haldol 5 mg IM one time dose was recommended. Signed out and discussed case with Tatyana Rollins NP. Primary team to continue management.
[2023-10-26] MEDS ORDERED: ARIPiprazole 15 MG TAB PO SCH (09:00)
--- NOTE | 2023-10-26 09:02 | P.CONS ---
History of Present Illness - Reason for Consult Consult date: 10/25/23 - History of Present Illness Patient is a 18-year-old female with a past medical history significant for asthma did have a history of ADHD presenting to the ER for evaluation of psych evaluation patient was brought in by [facility] on a court order apparently patient was going through a manic episode hyperverbal and delusional patient is 10 weeks on presentation to the hospital patient was afebrile and no fever has been recorded subsequently patient is not hypoxic or need for supplemental oxygen patient did have a normal white count no lymphopenia creatinine 0.43 urine has been mildly positive urine drug screen was positive for marijuana she did tested positive for COVID that pr ompted this infectious disease consultation patient did have a chest x-ray correlate for mild bronchitis or interstitial pneumonitis patient is currently complaining of being anxious complaining of some shortness of breath and want to have albuterol inhaler patient denies having any chest pain did have mild cough which is dry in nature no nausea vomiting abdominal pain or any diarrhea patient did not recall if she recently tested positive for COVID-19 Past Medical History Past Medical History: No Reported History, Asthma Additional Past Medical History / Comment(s): Pt is 5 weeks . History of Any Multi-Drug Resistant Organisms: None Reported Past Surgical History: Tonsillectomy Past Anesthesia/Blood Transfusion Reactions: No Reported Reaction Additional Past Anesthesia/Blood Transfusion Reaction / Comm: NO PROBLEMS WITH ANESTHESIA Past Psychological History: No Psychological Hx Reported, ADD/ADHD Smoking Status: Never smoker, Vaper Past Alcohol Use History: Occasional Past Drug Use History: Marijuana - Past Family History Mother Family Medical History: No Reported History Father Family Medical History: No Reported History Medications and Allergies Home Medications Medication Instructions Recorded Confirmed Type No Known Home Medications 10/23/23 10/23/23 History Allergies Allergy/AdvReac Type Severity Reaction Status Date / Time No Known Allergies Allergy Verified 10/23/23 16:30 Physical Exam Vitals: Vital Signs Temp Pulse Resp BP Pulse Ox 10/25/23 07:00 99 F 121 H 22 126/85 97 10/24/23 19:57 115 H 22 121/82 99 Intake and Output 10/25/23 10/25/23 10/25/23 06:59 14:59 22:59 Other: # Voids 1 3 Results CBC & Chem 7: 10/24/23 11:31 10/24/23 11:31 Assessment and Plan Plan: 1patient presented to hospital for psych evaluation and the patient apparently was going through a manic episode, patient did tested positive for COVID-19 m ostly incidental finding as the patient was not having significant respiratory symptoms patient is currently not hypoxic or need for supplemental oxygen and not running any fever chest x-ray with nutritional pneumonitis questionably to an underlying asthma 2-treatment for COVID is most supportive and is only for steroids or remdesivir 3- a 5 days of droplet isolation should be enough in this case as the patient may benefit from treatment in the psych unit then on the regular medical floor We will follow on clinical condition and cultures to further adjust medication if needed Thank you for this consultation we will follow the patient along with you Dictation was produced using [employer] dictation software. please excuse any grammatical, word or spelling errors. Time with Patient: Greater than 30
[2023-10-26] MEDS: ALBUTEROL HFA INHALER INHALATION SCH ×4 (09:07→18:19)
[2023-10-26] MEDS ORDERED: haloperidoL 5 MG TAB PO PRN (12:40)
[2023-10-26] MEDS ORDERED: OLANZapine 10 MG VIAL IM PRN (12:41)
[2023-10-26] MEDS: QUEtiapine 100 MG TAB PO SCH ×2 (13:31→20:49)
[2023-10-26] MEDS: MULTIVITAMINS, THERA 1 EACH TAB PO SCH (13:36)
--- NOTE | 2023-10-26 14:18 | P.PN ---
Progress Note - Text Progress Note Date: 10/26/23 Interval History: Patient was seen today for psychiatric follow up. Patient continues to have a gitation and had a Mr. Oliveira called twice yesterday. Patient also was in restraints as well. Patient continues to be in isolation and has a sitter. Patient continues to be fairly loud and intrusive and aggressive. She was also fairly hostile to commercial real estate underwriter calling him different names. She states that "you're not my doctor I don't want to talk to". She also states that the Abilify is causing her to feel more anxious. She squatted on the floor and took several breaths. She did show a very brief moments of cooperation and clarity however present shortly after being hyper verbal aggressive and loud. Continues to focus on discharge. Very poor insight and judgment. She is denying any suicidal or homicidal ideations intent or plan. In any any auditory or visual hallucinations. Spinning Lathe Operator again informed nursing staff that patient is on an active court order and that she is required to take PO meds or else she is to receive IM zyprexa. staff informed commercial real estate underwriter that patient did not sleep well last night. MENTAL STATUS EXAM: General Appearance: Patient appears to be stated age is alert, directable, and attempts to cooperate. Patient appears to have fair hygiene and grooming. The patient has numerous tattoos and has green hair with glasses. Behavior: Patient is agitated, Psychomotor activity is elevated. Eye contact is intense. Demanding and aggressive Speech: Patient's speech is fluent, nonlinear, hyperverbal. Irritable tone Mood/Affect: Patient reports their mood is "fine" affect is bizarre and irritable. Expansive. Suicidality/Homicidality: Patient denies any suicidal or homicidal ideation, intention, and/or plan. Perceptions: Patient denies any visual hallucinations but she reports auditory hallucinations. Though content/process: The patient poor insight. Rambling. Tange ntial/circumstantial. with flight of ideas and loose associations. Memory and concentration: Memory and concentration appeared to be fair, patient is difficult to redirect. Judgment and insight: Poor/impulsive IMPRESSIONS: Bipolar disorder, current episode manic severe Cannabis use disorder PLAN: -At this time patient DOES meet criteria for inpatient psychiatric admission over due to patient being positive for covid she will continue receiving psychiatric care while on the medical floors. -Would recommend the following medication changes/additions: increase Abilify 7.5 mg daily by mouth for mood stabilization. increased Seroquel 100 mg BID for mood stabilization/sleep. Patient is currently on a mental health court order and is required to take medications, if she is refusing PO SEROQUEL then please give IM Zyprexa. -Haldol by mouth and IM when necessary for agitation. -Continue 1:1 sitter for safety -Cannot leave AMA at this time as patient is currently on an active court order. -Communicated plan to patient's nurse -Will continue to follow along -Please contact with any questions.
--- NOTE | 2023-10-26 14:57 | P.PN ---
Subjective Progress Note Date: 10/26/23 Principal diagnosis: Reason for follow-up is covid 19 Patient is a 18-year-old female with a past medical history significant for asthma did have a history of ADHD presenting to the ER for evaluation of psych evaluation patient was brought in by [employer] [facility] on a court order , patient also tested positive for covid , patient is x-ray with mild interstitial infiltrate On today's evaluation that is 10/26/2023, the patient continues to be afebrile and is breathing comfortably on room air, and patient has been complaining of dry cough no worsening no nausea no vomiting or diarrhea patient did have a significant agitation last night requiring 4 limbs restrain Patient did have white count of 7.8, creatinine 0.43 as of 10/24/2023 Objective - Vital Signs Vital signs: Vital Signs Temp 99 F 10/25/23 07:00 Pulse 121 H 10/25/23 07:00 Resp 22 10/25/23 07:00 BP 126/85 10/25/23 07:00 Pulse Ox 97 10/25/23 07:00 FiO2 Intake & Output 10/25/23 10/26/23 10/26/23 18:59 06:59 18:59 Other: Voiding Method Toilet # Voids 3 1 - Exam GENERAL DESCRIPTION: A young female lying in bed in no distress RESPIRATORY SYSTEM: Unlabored breathing , clear to auscultation anteriorly HEART: S1 S2 regular rate and rhythm , ABDOMEN: Soft , no tenderness EXTREMITIES: No edema feet - Labs CBC & Chem 7: 10/24/23 11:31 10/24/23 11:31 Labs: Microbiology - Last 24 Hours (Table) 10/24/23 16:22 Urine Culture - Final Urine,Voided 10/24/23 15:54 Blood Culture - Preliminary Blood Assessment and Plan (1) COVID-19 Current Visit: Yes Status: Acute Code(s): U07.1 - COVID-19 SNOMED Code(s): 478479071 Plan: 1patient presented to hospital for psych evaluation and the patient apparently was going through a manic episode, patient did tested positive for COVID-19 mostly incidental finding as the patient was not having significant respiratory symptoms patient is currently not hypoxic or need for supplemental oxygen and not running any fever chest x-ray with nutritional pneumonitis questionably to an underlying asthma 2-treatment for COVID is most supportive and there is no need for steroids or remdesivir Dictation was produced using [employer] dictation software. please excuse any grammatical, word or spelling errors. Time with Patient: Less than 30
[2023-10-26] MEDS: ACETAMINOPHEN TAB 500 MG TAB PO PRN (15:56)
[2023-10-26] MEDS: HALOPERIDOL LACTATE 5 MG/ML 1 ML VIAL IM PRN (20:52)
[2023-10-26] MEDS ORDERED: QUEtiapine 100 MG TAB PO SCH (21:00)
[2023-10-27] MEDS: HALOPERIDOL LACTATE 5 MG/ML 1 ML VIAL IM PRN ×3 (04:16→21:14)
[2023-10-27] MEDS: QUEtiapine 100 MG TAB PO SCH ×2 (08:15→13:13)
[2023-10-27] MEDS: ALBUTEROL HFA INHALER INHALATION SCH ×4 (08:59→20:12)
[2023-10-27] MEDS ORDERED: ARIPiprazole 10 MG TAB PO SCH (09:00)
[2023-10-27] MEDS: ACETAMINOPHEN TAB 500 MG TAB PO PRN (09:02)
--- NOTE | 2023-10-27 10:53 | P.PN ---
Subjective Progress Note Date: 10/26/23 This is a 18-year-old female who was brought to the emergency department for order for noncompliance with [facility] with acute manic episode also found to be coping positive and patient was reportedly 10 weeks . Ultrasound confirmed and patient was evaluated briefly by SUMMER ANALYST and unsure if patient is receiving obstetric care outpatient. Patient with significant manic episodes with frequent outbursts requiring brief period of restraints and is being closely followed by psychiatry along with infectious disease. Patient is not having any symptomology regarding Covid although according to hospital protocol Covid patients cannot go to psych unit here. Patient being monitored with psychiatry following adjustments to medications on a medical floor. Patient was given significant doses of Zyprexa along with Haldol and is continued on these medications. Patient was started on Abilify although reported to psychiatry admitted her feel more anxious and more ear trouble and refusing to take. Ab ilify has been discontinued. Patient afebrile with no reports of chest pain or shortness of breath. Patient is extremely anxious and wants to leave and does have sitter at bedside for close monitoring. Review of systems: Constitutional: No reports of fatigue, fever, or chills, reports of extreme anxiety Cardiovascular: No reports of chest pain or palpitations Respiratory: No reports of shortness of breath or cough GI: reports of nausea, no reports of of vomiting, : No reports of dysuria or retention Neurovascular: no reports of generalized weakness All medications have been reviewed Active Medications Acetaminophen (Acetaminophen Tab 500 Mg Tab) 500 mg PO Q6HR PRN PRN Reason: Fever and/ or Pain Last Admin: 10/27/23 09:02 Dose: 500 mg Albuterol Sulfate (Albuterol Hfa Inhaler) 2 puff INHALATION RT-QID [facility] Last Admin: 10/27/23 08:59 Dose: Not Given Haloperidol (Haloperidol 5 Mg Tab) 5 mg PO Q6HR PRN PRN Reason: Agitation Haloperidol Lactate (Haloperidol Lactate 5 Mg/Ml 1 Ml Vial) 5 mg IM Q6HR PRN PRN Reason: Agitation or Acute Psychosis Last Admin: 10/27/23 04:16 Dose: 5 mg Multivitamins (Multivitamins, Thera 1 Each Tab) 1 each PO DAILY@1200 [facility] Last Admin: 10/26/23 13:36 Dose: Not Given Naloxone HCl (Naloxone 0.4 Mg/Ml 1 Ml Vial) 0.2 mg IV Q2M PRN PRN Reason: Opioid Reversal Olanzapine (Olanzapine 10 Mg Vial) 10 mg IM BID PRN PRN Reason: if pt refuses PO meds Last Admin: 10/27/23 08:17 Dose: 10 mg Quetiapine Fumarate (Quetiapine 100 Mg Tab) 100 mg PO BID STEPHANIE Last Admin: 10/27/23 08:15 Dose: 100 mg PHYSICAL EXAMINATION: GENERAL: The patient is alert and oriented x4, extremely manic and agitated and extremely anxious Well developed, well nourished. Thin built HEENT: Pupils are round and equally reacting to light. EOMI. no scleral icterus. No conjunctival pallor. Normocephalic, atraumatic. No pharyngeal erythema. No thyromegaly. CARDIOVASCULAR: S1 and S2 muffled PULMONARY: diminished breath sounds bilaterally with no wheezing or rhonchi noted. ABDOMEN: soft. Nontender on exam. non-distended, normoactive bowel sounds. No palpable organomegaly. MUSCULOSKELETAL: No joint swelling or deformity. EXTREMITIES: No cyanosis, clubbing, or pedal edema. NEUROLOGICAL: Gross neurological examination did not reveal any focal deficits. SKIN: No rashes. Assessment: Acute manic episode, secondary to bipolar Acute COVID-19 infection 10 weeks gestation Attention deficit disorder, attention deficit hyperactivity disorder History of vaping History of noncompliance with [facility] on court order History of THC GI prophylaxis DVT prophylaxis Full code Plan: Recommend to continue with current medications and management per psychiatry orders. Patient is court ordered for noncompliance from [facility] for manic episode and is currently continuing to experience jose requiring multiple administrations of psychiatry medications. Patient was started on Abilify although reports having extreme anxiety and agitation refusing to take this and psychiatry has discontinued Patient is COVID-19 positive with no symptomology and reports she does not feel she has Covid Patient unable to go to [facility] [address] due to COVID-19 diagnosis and social work following working on other possible psychiatric facilities although none available and continuing to look for Patient continue with a sitter at the bedside Patient was seen and evaluated by gynecology and underwent ultrasound which was 10 weeks gestation and per patient does not want to see SUMMER ANALYST while here Overall prognosis is guarded The impression and plan of care has been dictated by Tatyana Rollins, nurse practitioner as directed. Dr. Cassidy MD I have performed a history and examination and MDM of this patient, discussed the same with the dictator, and agree with the dictator's assessment and plan as written ,documented as a scribe. Based on total visit time, I have performed more than 50% of the visit. Any additional findings or plans will be noted. Objective - Vital Signs Vital signs: Vital Signs Temp 98 F 10/27/23 07:13 Pulse 110 H 10/27/23 07:13 Resp 24 10/27/23 07:13 BP 111/62 10/27/23 07:13 Pulse Ox 97 10/27/23 07:13 FiO2 Intake & Output 10/26/23 10/27/23 10/27/23 18:59 06:59 18:59 Other: Voiding Method Toilet Toilet Toilet # Voids 1 1 - Labs CBC & Chem 7: 10/24/23 11:31 10/24/23 11:31 Labs: Microbiology - Last 24 Hours (Table) 10/24/23 15:54 Blood Culture - Preliminary Blood
[2023-10-27] MEDS: metroNIDAZOLE 500 MG TAB PO SCH ×2 (12:30→17:39)
[2023-10-27] MEDS ORDERED: QUEtiapine 200 MG TAB PO STA (13:10)
--- NOTE | 2023-10-27 13:58 | P.PN ---
Progress Note - Text Progress Note Date: 10/27/23 Interval History: Patient was seen today for psychiatric follow up. Patient continues to have a gitation and impulsivity issues. Mr. forbes has not been called this morning. Patient continues on a one-to-one sitter in her room. She was seen today by scientific technical writer and appears to be mildly less hyperverbal today, markedly less intrusive and less hostile with scientific technical writer. She did make several comments about scientific technical writer being a "male doctor" and claims that she did not want him to see her. She continues to ramble and request several different items and be very demanding. She also was preoccupied with her boyfriend being released from [facility] today and coming to visit her on the medical floors. She continues to have very poor insight and judgment. Continues to not want to take medications including Seroquel however did not give a specific reason why. Continues to focus on discharge. Very poor insight and judgment. She is denying any suicidal or homicidal ideations intent or plan. In any any auditory or visual hallucinations. Parts Room Assistant again informed nursing staff that patient is on an active court order and that she is required to take PO meds or else she is to receive IM zyprexa. staff informed scientific technical writer that patient did not sleep well last night. MENTAL STATUS EXAM: General Appearance: Patient appears to be stated age is alert, directable, and attempts to cooperate. Patient appears to have fair hygiene and grooming. The patient has numerous tattoos and has green hair with glasses. Behavior: Patient is agitated, Psychomotor activity is elevated. Eye contact is intense. Demanding and aggressive, improving mildly Speech: Patient's speech is fluent, nonlinear, hyperverbal. Irritable tone, improving mildly Mood/Affect: Patient reports their mood is "fine" affect is bizarre and irritable. Expansive. Suicidality/Homicidality: Patient denies any suicidal or homicidal ideation, intention, and/or plan. Perceptions: Patient denies any visual hallucinations but she reports auditory hallucinations. Though content/process: The patient poor insight. Rambling. Tangential/circumstantial. with flight of ideas and loose associations., Improving mildly Memory and concentration: Memory and concentration appeared to be fair, patient is difficult to redirect. Judgment and insight: Poor/impulsive IMPRESSIONS: Bipolar disorder, current episode manic severe Cannabis use disorder PLAN: -At this time patient DOES meet criteria for inpatient psychiatric admission over due to patient being positive for covid she will continue receiving psychiatric care while on the medical floors. -Would recommend the following medication changes/additions: increased Seroquel 200 mg BID for mood stabilization/sleep. Patient is currently on a mental health court order and is required to take medications, if she is refusing PO SEROQUEL then please give IM Zyprexa. -Haldol by mouth and IM when necessary for agitation. -Continue 1:1 sitter for safety -Cannot leave AMA at this time as patient is currently on an active court order. -Communicated plan to patient's nurse -Will continue to follow along -Please contact with any questions.
[2023-10-27] MEDS ORDERED: HALOPERIDOL LACTATE 5 MG/ML 1 ML VIAL IM PRN (14:45)
[2023-10-27] MEDS: MULTIVITAMINS, THERA 1 EACH TAB PO SCH (17:26)
[2023-10-27] MEDS: diphenhydrAMINE 25 MG CAP PO PRN ×2 (17:39→21:25)
[2023-10-27] MEDS: QUEtiapine 200 MG TAB PO SCH ×2 (20:50→21:26)
[2023-10-28] MEDS: ALBUTEROL HFA INHALER INHALATION SCH ×4 (08:52→21:35)
[2023-10-28] MEDS: metroNIDAZOLE 500 MG TAB PO SCH ×2 (10:07→21:57)
[2023-10-28] MEDS: diphenhydrAMINE 25 MG CAP PO PRN (10:07)
[2023-10-28] MEDS: HALOPERIDOL LACTATE 5 MG/ML 1 ML VIAL IM PRN (10:08)
[2023-10-28] MEDS: QUEtiapine 200 MG TAB PO SCH (10:15)
[2023-10-28] MEDS: MULTIVITAMINS, THERA 1 EACH TAB PO SCH (13:58)
--- NOTE | 2023-10-28 20:15 | P.PN ---
Progress Note - Text Progress Note Date: 10/28/23 Interval History: Patient was seen today for psychiatric consultation follow up. The patient was seen first time by psychiatric team on 10/24 with the decision was to transfer the patient to psychiatric inpatient after stabilizing her medical condition which is related to Covid infection. The patient continues to present with manic symptoms including racing thoughts, pressured speech, very distracted with bouts of severe agitation. The patient has been refusing taking her recommended psychiatric medication Seroquel and reports today that "I have an allergy to Serouel and can't take it." The patient reports previous experience of severe rashes after took Seroquel. The patient has been receiving IM haldol as an alternative medications since yesterday because she continues to refuse taking Seroquel. Dr. Pagan recommended PRN 2ry line anti Psychotic Zyprexa, but according to nursing staff the patient was extremely agitated yesterday, didn't sleep, and was continuously yelling and screaming at the staff with no response to IM Zyprexa, so the decision was to change 2nd line anti-psychotic medication to IM Haldol. The patient presents today very distracted, hyper verbal and tangential with difficulties to redirect her speech. The presents with rapid thoughts and was fixated in her speech on leaving the hospital and repeating that she has no mental illness besides "may be ADHD." The patient has very poor insight about her mental illness and need for treatment; however, she agreed to try Zyprexa orally for mood stabilization and we will continue 2nd line Haldol IM if patient refused oral Zyprexa. The patient continues to have 1:1 observation. The patient made several negative comments about this hospital and the doctors don't listen to her. The patient requested to be transferred to a different hospital, and requested to have her boyfriend visiting her. According to staff, the boyfriend is not allowed to come to this hospital. Apparently the patient continues to have very poor insight and judgment. The patient denies suicidal or homicidal ideation, intent or plan. No reports of auditory or visual hallucinations. MENTAL STATUS EXAM: General Appearance: Patient appears to be stated age is alert, difficult to redirect. Patient appears to have fair hygiene and grooming. The patient has numerous tattoos and has green hair. Behavior: Patient is agitated, Psychomotor activity is elevated. Eye contact is intense. Demanding and aggressive Speech: Patient's speech is fluent, nonlinear, hyper verbal. Irritable tone Mood/Affect: Patient reports their mood is "fine" affect is bizarre and irritable. Expansive. Suicidality/Homicidality: Patient denies any suicidal or homicidal ideation, intention, and/or plan. Perceptions: Patient denies any visual hallucinations or auditory hallucinations. Though content/process: The patient poor insight. Thought process: Tangential/circumstantial. with flight of ideas and loose associations. Memory and concentration: Memory and concentration appeared to be fair, patient is difficult to redirect. Judgment and insight: Poor/impulsive IMPRESSIONS: Bipolar disorder, current episode manic severe Cannabis use disorder Recommendation: Addressed and ensured patient's safety, patient continues to meet the criteria for psychiatric hospitalization. Patient is actively manic. Please transfer the patient to inpatient psychiatric level of care after achieving medical stabilization. Continue the patient on 1:1 observation for safety The psychiatry team will continue follow-up with the patient while she is on the medical floor. The patient can't leave AMA from medical floor. Medication management: Start Olanzapine 2.5 mg PO Q am and 7.5 mg PO HS for manic symptoms and mood stabilization. The patient agreed to take the medication 2nd line IM anti-psychotic Haldol 5 mg if the patient refuses PO Olanzapine. Discontinued quetiapine as the patient reports history of severe allergic reaction including rashes, and she refused taking the medication. Patient is currently on a mental health court order and is required to take medications -Haldol by mouth and IM when necessary for agitation. Brief supportive psychotherapy and psychoeducation was provided to the patient. Discussed the treatment plan with the requesting physician/service. Thank you for permitting me to assist in this patient's treatment. Please call the psychiatry department if you have any questions or need further help with this case.
--- NOTE | 2023-10-28 21:20 | P.PN ---
Subjective Progress Note Date: 10/27/23 18-year-old female who was brought to the emergency department for order for noncompliance with [facility] with acute manic episode also found to be coping positive and patient was reportedly 10 weeks . Ultrasound confirmed and patient was evaluated briefly by CNC MACHINE OPERATOR and unsure if patient is receiving obstetric care outpatient. Patient with significant manic episodes with frequent outbursts requiring brief period of restraints and is being closely followed by psychiatry along with infectious disease. Patient is not having any symptomology regarding Covid although according to hospital protocol Covid patients cannot go to psych unit here. Patient being monitored with psychiatry following adjustments to medications on a medical floor. Patient was given significant doses of Zyprexa along with Haldol and is continued on these medications. Patient was started on Abilify although reported to psychiatry admitted her feel more anxious and more ear trouble and refusing to take. Abilify has been discontinued. Patient afebrile with no reports of chest pain or shortness of breath. Patient is extremely anxious and wants to leave and does have sitter at bedside for close monitoring. Objective - Vital Signs Vital signs: Vital Signs Temp 98 F 10/27/23 07:13 Pulse 110 H 10/27/23 07:13 Resp 24 10/27/23 07:13 BP 111/62 10/27/23 07:13 Pulse Ox 97 10/27/23 07:13 FiO2 Intake & Output 10/26/23 10/27/23 10/27/23 18:59 06:59 18:59 Other: Voiding Method Toilet Toilet Toilet # Voids 1 1 - Exam GENERAL: The patient is alert and oriented x4, extremely manic and agitated and extremely anxious Well developed, well nourished. Thin built HEENT: Pupils are round and equally reacting to light. EOMI. no scleral icterus. No conjunctival pallor. Normocephalic, atraumatic. No pharyngeal erythema. No thyromegaly. CARDIOVASCULAR: S1 and S2 muffled PULMONARY: diminished breath sounds bilaterally with no wheezing or rhonchi noted. ABDOMEN: soft. Nontender on exam. non-distended, normoactive bowel sounds. No palpable organomegaly. MUSCULOSKELETAL: No joint swelling or deformity. EXTREMITIES: No cyanosis, clubbing, or pedal edema. NEUROLOGICAL: Gross neurological examination did not reveal any focal deficits. SKIN: No rashes. - Labs CBC & Chem 7: 10/24/23 11:31 10/24/23 11:31 Labs: Microbiology - Last 24 Hours (Table) 10/24/23 15:54 Blood Culture - Preliminary Blood Assessment and Plan Assessment: Acute manic episode, secondary to bipolar Acute COVID-19 infection 10 weeks gestation Attention deficit disorder, attention deficit hyperactivity disorder History of vaping History of noncompliance with [facility] on court order History of THC GI prophylaxis DVT prophylaxis Full code Plan: Recommend to continue with current medications and management per psychiatry orders. Patient is court ordered for noncompliance from [facility] for manic episode and is currently continuing to experience jose requiring multiple ad ministrations of psychiatry medications. Patient was started on Abilify although reports having extreme anxiety and agitation refusing to take this and psychiatry has discontinued Patient is COVID-19 positive with no symptomology and reports she does not feel she has Covid Patient unable to go to [facility] due to COVID-19 diagnosis and social work following working on other possible psychiatric facilities although none available and continuing to look for Patient continue with a sitter at the bedside Patient was seen and evaluated by gynecology and underwent ultrasound which was 10 weeks gestation and per patient does not want to see CNC MACHINE OPERATOR while here Overall prognosis is guarded
--- NOTE | 2023-10-28 21:21 | P.PN ---
Subjective Progress Note Date: 10/28/23 18-year-old female who was brought to the emergency department for order for noncompliance with [facility] with acute manic episode also found to be coping positive and patient was reportedly 10 weeks . Ultrasound confirmed and patient was evaluated briefly by RETORT SETTER and unsure if patient is receiving obstetric care outpatient. Patient with significant manic episodes with frequent outbursts requiring brief period of restraints and is being closely followed by psychiatry along with infectious disease. Patient is not having any symptomology regarding Covid although according to hospital protocol Covid patients cannot go to psych unit here. Patient being monitored with psychiatry following adjustments to medications on a medical floor. Patient was given significant doses of Zyprexa along with Haldol and is continued on these medications. Patient was started on Abilify although reported to psychiatry admitted her feel more anxious and more ear trouble and refusing to take. Abilify has been discontinued. Patient afebrile with no reports of chest pain or shortness of breath. Patient is extremely anxious and wants to leave and does have sitter at bedside for close monitoring. Psych has evaluated patient with following changes Start Olanzapine 2.5 mg PO Q am and 7.5 mg PO HS for manic symptoms and mood stabilization. The patient agreed to take the medication 2nd line IM anti-psychotic Haldol 5 mg if the patient refuses PO Olanzapine. Discontinued quetiapine as the patient reports history of severe allergic reaction including rashes, and she refused taking the medication. Objective - Vital Signs Vital signs: Vital Signs Temp 98.1 F 10/27/23 20:00 Pulse 106 H 10/28/23 10:00 Resp 16 10/27/23 20:00 BP 126/82 10/27/23 20:00 Pulse Ox 98 10/27/23 20:00 FiO2 Intake & Output 10/27/23 10/28/23 10/28/23 18:59 06:59 18:59 Intake Total 200 0 Balance 200 0 Intake: Oral 200 0 Other: Voiding Method Toilet Toilet Toilet # Voids 2 - Exam GENERAL: The patient is alert and oriented x4, extremely manic and agitated and extremely anxious Well developed, well nourished. Thin built HEENT: Pupils are round and equally reacting to light. EOMI. no scleral icterus. No conjunctival pallor. Normocephalic, atraumatic. No pharyngeal erythema. No thyromegaly. CARDIOVASCULAR: S1 and S2 muffled PULMONARY: diminished breath sounds bilaterally with no wheezing or rhonchi noted. ABDOMEN: soft. Nontender on exam. non-distended, normoactive bowel sounds. No palpable organomegaly. MUSCULOSKELETAL: No joint swelling or deformity. EXTREMITIES: No cyanosis, clubbing, or pedal edema. NEUROLOGICAL: Gross neurological examination did not reveal any focal deficits. SKIN: No rashes. - Labs CBC & Chem 7: 10/24/23 11:31 10/24/23 11:31 Labs: Microbiology - Last 24 Hours (Table) 10/24/23 15:54 Blood Culture - Preliminary Blood Assessment and Plan Assessment: Acute manic episode, secondary to bipolar Acute COVID-19 infection 10 weeks gestation Attention deficit disorder, attention deficit hyperactivity disorder History of vaping History of noncompliance with [facility] on court order History of THC GI prophylaxis DVT prophylaxis Full code Plan: Recommend to continue with current medications and management per psychiatry orders. Patient is court ordered for noncompliance from [facility] for manic episode and is currently continuing to experience jose requiring multiple administrations of psychiatry medications. Patient was started on Abilify although reports having extreme anxiety and agitation refusing to take this and psychiatry has discontinued Patient is COVID-19 positive with no symptomology and reports she does not feel she has Covid Patient unable to go to [address] due to COVID-19 diagnosis and social work following working on other possible psychiatric facilities although none available and continuing to look for Patient continue with a sitter at the bedside Patient was seen and evaluated by gynecology and underwent ultrasound which was 10 weeks gestation and per patient does not want to see RETORT SETTER while here Overall prognosis is guarded
[2023-10-28] MEDS: OLANZapine 7.5 MG TAB PO SCH (21:57)
[2023-10-29] MEDS: ALBUTEROL HFA INHALER INHALATION SCH ×4 (08:46→20:31)
[2023-10-29] MEDS: metroNIDAZOLE 500 MG TAB PO SCH ×2 (09:40→19:44)
[2023-10-29] MEDS: OLANZapine 2.5 MG TAB PO SCH (09:41)
[2023-10-29] MEDS: MULTIVITAMINS, THERA 1 EACH TAB PO SCH (14:35)
[2023-10-29] MEDS: OLANZapine 7.5 MG TAB PO SCH (19:44)
--- NOTE | 2023-10-29 23:01 | P.PN ---
Progress Note - Text Progress Note Date: 10/29/23 Interval History: Patient was seen today for psychiatric consultation follow up. The patient [facility] and she was evaluated by psychiatry first time on 10/24 during this hospital stay. The patient has well known history of bipollar disorder and she is admitted at medical floor because of Covid infection, awaiting medical clearance to be transferred to psychiatric unit. The patient continues to present with manic symptoms including rapid thoughts, increased pressured speech, distracted, and tangential. The patient has been showing some improvement of her manic symptoms compared to yesterday. Nursing staff report that patient had slept last night and has been less agitated today. No bouts of explosive behavior today. The patient has been taking Zyprexa which was started yesterday, and no PRN Haldol injection was given since yesterday. The patient presents less distracted, and responding to redirection. She continues to request transfer to a different hospital but she is agreeable with the recommended treatment and plan of care. The patient reports that she doesn't prefer male psychiatrist due to previous history of psychological trauma, She was explained that no female psychiatrist available at this hospital. The patient still needs 1:1 observation for safety and redirection. The patient denies suicidal or homicidal ideation, intent or plan. No reports of auditory or visual hallucinations. MENTAL STATUS EXAM: General Appearance: Patient appears to be stated age is alert, difficult to redirect. Patient appears to have fair hygiene and grooming. The patient has numerous tattoos and has green hair. Behavior: Patient is less agitated, Psychomotor activity is less than yesterday. Eye contact is better today. Demanding but not aggressive. Speech: Patient's speech is fluent, nonlinear, hyper verbal. Irritable tone Mood/Affect: Patient reports their mood is "fine" affect is bizarre and irritable. Expansive. Suicidality/Homicidality: Patient denies any suicidal or homicidal ideation, intention, and/or plan. Perceptions: Patient denies any visual hallucinations or auditory hallucinations. Though content/process: The patient poor insight. Thought process: Tangential/circumstantial. with flight of ideas and loose associations. Memory and concentration: Memory and concentration appeared to be fair, patient is difficult to redirect. Judgment and insight: Poor/impulsive IMPRESSIONS: Bipolar disorder, current episode manic severe Cannabis use disorder Recommendation: Addressed and ensured patient's safety, patient continues to meet the criteria for psychiatric hospitalization. Patient is actively manic. Please transfer the patient to inpatient psychiatric level of care after achieving medical stabilization. Continue the patient on 1:1 observation for safety The psychiatry team will continue follow-up with the patient while she is on the medical floor. The patient can't leave AMA from medical floor. The patient may have access to her cell phone for 60 minutes 2-3 times daily as per nursing staff assessment. Medication management: Continue Olanzapine 2.5 mg PO Q am and 7.5 mg PO HS for manic symptoms and mood stabilization. The patient agreed to take the medication 2nd line IM anti-psychotic Haldol 5 mg if the patient refuses PO Olanzapine. Discontinued quetiapine as the patient reports history of severe allergic reaction including rashes, and she refused taking the medication. Patient is currently on a mental health court order and is required to take medications -Haldol by mouth and IM when necessary for agitation. Brief supportive psychotherapy and psychoeducation was provided to the patient. Discussed the treatment plan with the requesting physician/service. Thank you for permitting me to assist in this patient's treatment. Please call the psychiatry department if you have any questions or need further help with this case.
--- NOTE | 2023-10-30 06:33 | P.PN ---
Subjective Progress Note Date: 10/29/23 18-year-old female who was brought to the emergency department for order for noncompliance with [facility] with acute manic episode also found to be coping positive and patient was reportedly 10 weeks . Ultrasound confirmed and patient was evaluated briefly by BABY STROLLER RENTAL CLERK and unsure if patient is receiving obstetric care outpatient. Patient with significant manic episodes with frequent outbursts requiring brief period of restraints and is being closely followed by psychiatry along with infectious disease. Patient is not having any symptomology regarding Covid although according to hospital protocol Covid patients cannot go to psych unit here. Patient being monitored with psychiatry following adjustments to medications on a medical floor. Patient was given significant doses of Zyprexa along with Haldol and is continued on these medications. Patient was started on Abilify although reported to psychiatry admitted her feel more anxious and more ear trouble and refusing to take. Abilify has been discontinued. Patient afebrile with no reports of chest pain or shortness of breath. Patient is extremely anxious and wants to leave and does have sitter at bedside for close monitoring. 10/29/2023 Remains medically stable Psych has evaluated patient with following changes Start Olanzapine 2.5 mg PO Q am and 7.5 mg PO HS for manic symptoms and mood stabilization. The patient agreed to take the medication 2nd line IM anti-psychotic Haldol 5 mg if the patient refuses PO Olanzapine. Discontinued quetiapine as the patient reports history of severe allergic reaction including rashes, and she refused taking the medication. Objective - Vital Signs Vital signs: Vital Signs Temp 98.3 F 10/28/23 20:00 Pulse 102 H 10/28/23 20:00 Resp 20 10/28/23 14:00 BP 104/67 10/28/23 20:00 Pulse Ox 98 10/28/23 20:00 FiO2 Intake & Output 10/28/23 10/29/23 10/29/23 18:59 06:59 18:59 Intake Total 240 Balance 240 Intake: Oral 240 Other: Voiding Method Toilet # Voids 1 - Exam GENERAL: The patient is alert and oriented x4, extremely manic and agitated and extremely anxious Well developed, well nourished. Thin built HEENT: Pupils are round and equally reacting to light. EOMI. no scleral icterus. No conjunctival pallor. Normocephalic, atraumatic. No pharyngeal erythema. No thyromegaly. CARDIOVASCULAR: S1 and S2 muffled PULMONARY: diminished breath sounds bilaterally with no wheezing or rhonchi noted. ABDOMEN: soft. Nontender on exam. non-distended, normoactive bowel sounds. No palpable organomegaly. MUSCULOSKELETAL: No joint swelling or deformity. EXTREMITIES: No cyanosis, clubbing, or pedal edema. NEUROLOGICAL: Gross neurological examination did not reveal any focal deficits. SKIN: No rashes. - Labs CBC & Chem 7: 10/24/23 11:31 10/24/23 11:31 Assessment and Plan Assessment: Acute manic episode, secondary to bipolar Acute COVID-19 infection 10 weeks gestation Attention deficit disorder, attention deficit hyperactivity disorder History of vaping History of noncompliance with [facility] on court order History of THC GI prophylaxis DVT prophylaxis Full code Plan: Recommend to continue with current medications and management per psychiatry orders. Patient is court ordered for noncompliance from [facility] for manic episode and is currently continuing to experience jose requiring multiple administra tions of psychiatry medications. Patient was started on Abilify although reports having extreme anxiety and agitation refusing to take this and psychiatry has discontinued Patient is COVID-19 positive with no symptomology and reports she does not feel she has Covid Patient unable to go to [address] due to COVID-19 diagnosis and social work following working on other possible psychiatric facilities although none available and continuing to look for Patient continue with a sitter at the bedside Patient was seen and evaluated by gynecology and underwent ultrasound which was 10 weeks gestation and per patient does not want to see BABY STROLLER RENTAL CLERK while here Overall prognosis is guarded
[2023-10-30] MEDS: ALBUTEROL HFA INHALER INHALATION SCH ×5 (08:52→19:58)
[2023-10-30] MEDS: metroNIDAZOLE 500 MG TAB PO SCH ×2 (10:34→20:53)
[2023-10-30] MEDS: OLANZapine 2.5 MG TAB PO SCH (10:35)
[2023-10-30] MEDS: MULTIVITAMINS, THERA 1 EACH TAB PO SCH (10:36)
[2023-10-30 14:24] VITALS: BMI 24.2
--- NOTE | 2023-10-30 14:49 | P.PN ---
Progress Note - Text Progress Note Date: 10/30/23 Interval History: Patient was seen today for psychiatric follow up. Patient has been switched on to Zyprexa over the weekend and has been taking the medication consistently. Patient continues to have a sitter outside of her room. She was talking to her boyfriend over face time however was agreeable to speak to instructional writer. She appears to be less hyperverbal mildly less argumentative today. She continues to be intrusive and interrupts instructional writer several times and fairly demanding with her medications however was fairly focused on going home today. She claims that she is doing better, less racing thoughts today. Continues to have very poor judgment and insight. She believes that she can take her medications when she leaves "as needed". She continues to talk about seeing her "other doctors" and wants to talk to them about her medications and not necessarily instructional writer. Claims that she is sleeping better at nighttime. Very poor insight and judgment. She is denying any suicidal or homicidal ideations intent or plan. In any any auditory or visual hallucinations. MENTAL STATUS EXAM: General Appearance: Patient appears to be stated age is alert, directable, and attempts to cooperate, improving. Patient appears to have fair hygiene and grooming. The patient has numerous tattoos and has green hair with glasses. Behavior: Patient is less agitated, Psychomotor activity is less elevated today. Eye contact is intense. Demanding Speech: Patient's speech is fluent, nonlinear, hyperverbal. less Irritable tone, improving mildly Mood/Affect: Patient reports their mood is "alright" affect is bizarre and irritable. Suicidality/Homicidality: Patient denies any suicidal or homicidal ideation, intention, and/or plan. Perceptions: Patient denies any visual hallucinations but she reports auditory hallucinations. Though content/process: The patient poor insight. Rambling. with flight of ideas and loose associations., Improving mildly Memory and concentration: Memory and concentration appeared to be fair, patient is difficult to redirect. Judgment and insight: Poor/impulsive, mildly improving IMPRESSIONS: Bipolar disorder, current episode manic severe Cannabis use disorder PLAN: -At this time patient DOES meet criteria for inpatient psychiatric admission over due to patient being positive for covid she will continue receiving psychiatric care while on the medical floors. -Would recommend the following medication changes/additions: increased zyprexa 5 mg daily + 7.5 mg qhs for mood stabilization/sleep. Patient is currently on a mental health court order and is required to take medications, if she is refusing PO Zyprexa then please give IM Haldol -will have to communicate with MACHINE STRIPPER CUTTER and her outpatient team at [facility] to ensure safe discharge plan when she is back to baseline. -Haldol by mouth and IM when necessary for agitation. -Continue 1:1 sitter for safety -Cannot leave AMA at this time as patient is currently on an active court order. -Communicated plan to patient's nurse -Will continue to follow along -Please contact with any questions.
[2023-10-30] MEDS: OLANZapine 7.5 MG TAB PO SCH (20:53)
--- NOTE | 2023-10-31 04:42 | P.PN ---
Subjective Progress Note Date: 10/30/23 This is a 18-year-old female who was brought to the emergency department for order for noncompliance with [facility] with acute manic episode also found to be coping positive and patient was reportedly 10 weeks . Ultrasound confirmed and patient was evaluated briefly by LAB REP and unsure if patient is receiving obstetric care outpatient. Patient with significant manic episodes with frequent outbursts requiring brief period of restraints and is being closely followed by psychiatry along with infectious disease. Patient is not having any symptomology regarding Covid although according to hospital protocol Covid patients cannot go to psych unit here. Patient being monitored with psychiatry following adjustments to medications on a medical floor. Patient was given significant doses of Zyprexa along with Haldol and is continued on these medications. Patient was started on Abilify although reported to psychiatry admitted her feel more anxious and more ear trouble and refusing to take. Ab ilify has been discontinued. Patient afebrile with no reports of chest pain or shortness of breath. Patient is extremely anxious and wants to leave and does have sitter at bedside for close monitoring. 10/30/2023 Patient is seen in follow-up today currently slightly more cooperative although continues to be manic and is on the medical surgical unit this patient was tested positive for Covid. Psychiatry following as patient is court ordered and has been mandated to take medication although patient has been refusing multiple medications stating it makes her feel worse and more anxious. Patient is also 11 weeks and was evaluated by LAB REP and per patient, would like to discuss further plan of care with them as she reports she doesn't recall being evaluated by them on admission. Patient is maintained on Flagyl for trichomonas with infectious disease following. Patient is positive for Covid although not experiencing any shortness of breath. Patient does have as needed inhaler as she reports she does have history of asthma. Patient also asking for assistance with removing one of her gauge piercings on the left ear that she feels is causing pain and having difficulty removing it. Patient is afebrile with no reported chest pain or shortness of breath. Patient reports to tolerating diet. According to protocol patient would be 10 days after positive Covid test this u pcoming on 11/02/2023. Review of systems: Constitutional: No reports of fatigue, fever, or chills, reports of extreme anxiety Cardiovascular: No reports of chest pain or palpitations Respiratory: No reports of shortness of breath or cough GI: No reports of nausea, no reports of vomiting, no diarrhea : No reports of dysuria or retention Neurovascular: no reports of generalized weakness All medications have been reviewed PHYSICAL EXAMINATION: GENERAL: The patient is alert and oriented x4, extremely manic and extremely anxious Well developed, well nourished. Thin built HEENT: Pupils are round and equally reacting to light. EOMI. no scleral icterus. No conjunctival pallor. Normocephalic, atraumatic. No pharyngeal erythema. No thyromegaly. CARDIOVASCULAR: S1 and S2 muffled PULMONARY: diminished breath sounds bilaterally with no wheezing or rhonchi noted. ABDOMEN: soft. Nontender on exam. non-distended, normoactive bowel sounds. No palpable organomegaly. MUSCULOSKELETAL: No joint swelling or deformity. EXTREMITIES: No cyanosis, clubbing, or pedal edema. NEUROLOGICAL: Gross neurological examination did not reveal any focal deficits. Steady gait SKIN: No rashes. Assessment: Acute manic episode, secondary to bipolar Acute COVID-19 infection 11 weeks gestation Attention deficit disorder, attention deficit hyperactivity disorder History of vaping History of noncompliance with [facility] on court order History of THC GI prophylaxis DVT prophylaxis Full code Plan: Recommend to continue with current medications and management per psychiatry orders. Patient is court ordered for noncompliance from [facility] for manic episode and is currently continuing to experience jose requiring multiple administrations of psychiatry medications. Patient was started on Abilify although reports having extreme anxiety and agitation refusing to take this and psychiatry has discontinued Patient is COVID-19 positive with no symptomology and reports she does not feel she has Covid Infectious disease following as well as patient is maintained on Flagyl for trichomonas Patient unable to go to [address] due to COVID-19 diagnosis and social work following working on other possible psychiatric facilities although none available and continuing to look for Patient continue with a sitter at the bedside as patient is on court order and unable to leave AMA Patient was seen and evaluated by gynecology and underwent ultrasound which was 11 weeks gestation and per patient would like to see LAB REP and she reports she does not recall being evaluated by them on admission. There is a consult placed Overall prognosis is guarded The impression and plan of care has been dictated by Tatyana Rollins, nurse practitioner as directed. Dr. Izaiah MD I have performed a history and examination and MDM of this patient, discussed the same with the dictator, and agree with the dictator's assessment and plan as written ,documented as a scribe. Based on total visit time, I have performed more than 50% of the visit. Any additional findings or plans will be noted. Objective - Vital Signs Vital signs: Vital Signs Temp 98.3 F 10/29/23 20:00 Pulse 104 H 10/29/23 20:00 Resp 16 10/29/23 20:00 BP 114/70 10/29/23 20:00 Pulse Ox 98 10/29/23 20:00 FiO2 Intake & Output 10/29/23 10/30/23 10/30/23 18:59 06:59 18:59 Intake Total 222 Balance 222 Intake: Oral 222 Other: Voiding Method Toilet Toilet # Voids 1 2 - Labs CBC & Chem 7: 10/24/23 11:31 10/24/23 11:31 Labs: Microbiology - Last 24 Hours (Table) 10/24/23 15:54 Blood Culture - Final Blood
[2023-10-31] MEDS: ALBUTEROL HFA INHALER INHALATION SCH ×4 (08:08→20:24)
[2023-10-31] MEDS: metroNIDAZOLE 500 MG TAB PO SCH ×2 (09:11→20:47)
[2023-10-31] MEDS: OLANZapine 5 MG TAB PO SCH (09:11)
[2023-10-31] MEDS: MULTIVITAMINS, THERA 1 EACH TAB PO SCH (12:21)
[2023-10-31] MEDS: ACETAMINOPHEN TAB 500 MG TAB PO PRN (12:21)
--- NOTE | 2023-10-31 13:31 | P.PN ---
Progress Note - Text Progress Note Date: 10/31/23 Interval History: Patient was seen today for psychiatric follow up. Patient is in her room, and agreeable to speak to jingle writer. Patient continues to have a sitter outside of her room. She appears to be hyperverbal, and very argumentative today. Patient states shes irritable today. She continues to be intrusive, and interrupts this jingle writer several times during the interview, and argumentative about her medications and wanting to go home. Patient is very demanding, and moving about her room during the interview. Spoke with the patient at length about the importance of compliance. States she don't trust doctors and wants to talk to her own doctor. She claims that she is doing better, less racing thoughts today. Continues to have very poor judgment and insight, mildly improving. Claims that she is sleeping better at nighttime. She is denying any suicidal or homicidal ideations intent or plan. In any any auditory or visual hallucinations. MENTAL STATUS EXAM: General Appearance: Patient appears to be stated age is alert, directable, and attempts to cooperate, improving. Patient appears to have fair hygiene and grooming. The patient has numerous tattoos and has green hair with glasses. Behavior: Patient is less agitated, Psychomotor activity is less elevated today. Eye contact is intense. Demanding Speech: Patient's speech is fluent, nonlinear, hyperverbal. less Irritable tone, improving mildly Mood/Affect: Patient reports their mood is "alright" affect is bizarre and ir ritable, improving mildly Suicidality/Homicidality: Patient denies any suicidal or homicidal ideation, intention, and/or plan. Perceptions: Patient denies any visual hallucinations but she reports auditory hallucinations. Though content/process: The patient poor insight. Rambling. with flight of ideas and loose associations., Improving mildly Memory and concentration: Memory and concentration appeared to be fair, patient is difficult to redirect. Judgment and insight: Poor/impulsive, mildly improving IMPRESSIONS: Bipolar disorder, current episode manic severe Cannabis use disorder PLAN: -At this time patient DOES meet criteria for inpatient psychiatric admission over due to patient being positive for covid she will continue receiving psychiatric care while on the medical floors. -Would recommend the following medication changes/additions: increased zyprexa 5 mg daily + 10 mg qhs for mood stabilization/sleep. Patient is currently on a mental health court order and is required to take medications, if she is refusing PO Zyprexa then please give IM Haldol -will have to communicate with her outpatient team at [facility] to ensure safe discharge plan when she is back to baseline. WELDING PANTOGRAPH OPERATOR was contact by nursing staff to approve medications for use as patient is . The risk of teratogenicity is lower likely harm than non treatment of patients manic episode and aggression -Haldol by mouth and IM when necessary for agitation. -Continue 1:1 sitter for safety -Cannot leave AMA at this time as patient is currently on an active court order. -Communicated plan to patient's nurse -Will continue to follow along -Please contact with any questions.
--- NOTE | 2023-10-31 13:55 | P.PN ---
Progress Note - Text Progress Note Date: 10/31/23 18 yo at approx 10 weeks of was admitted for covid and manic sx on 10/23. I was consulted initially for . US was obtained with heart tones. she has had no related concerns. she denies vaginal bleeding or cramping. she states today that she was dx with a trichomoniasis infection by [facility] and she never took her antibiotic as they are at her home. she is worried about the and the infection. I discussed her US done at the time of my initial consult and she states she doesn't remember this and is desirous of a picture, of " the baby growing in my belly" PE isnt not done today as she is combative and anxious. she is requesting a regional operations director exam at some point. I did discuss it is challenging to do an exam properly in the hospital and it would be ideally done in an outpt setting. A vaginitis, tx with her last admission. she states since that time she was dx with trich. P US is done and documented heart tones were noted. No need to repeat at this time, as she has had no concerns I do understand her worries as she has had a prior miscarriage. US is reviewed with her and she is still adamant that she would like to see the pictures, discussed I dont contro that but could possibly get her the findings from the US. dirty urine to check for ct/ng/trich will await results and treat accordingly.
[2023-10-31 14:22] LABS: Bacteria,Urine Rare /hpf; RBC,Urine 14 /hpf (0-5); Squamous Epithelial Cell,Urine 3 /hpf (0-4); WBC,Urine 5 /hpf (0-5)
[2023-10-31 14:24] LABS: Appearance,Urine Clear (Clear); Bilirubin,Urine Negative (Negative); Color,Urine Yellow; Glucose,Urine (UA) Negative (Negative); Ketones,Urine Negative (Negative); PH, Urine 6.5 (5.0-8.0); Protein,Urine Negative (Negative); Specific Gravity,Urine 1.005 (1.001-1.035)
[2023-10-31 14:25] LABS: Blood,Urine Negative (Negative); Leukocyte Esterase,Urine Large (Negative); Nitrite,Urine Negative (Negative); Urobilinogen,Urine 0.2 mg/dL (<2.0)
--- NOTE | 2023-10-31 14:50 | P.PN ---
Subjective Progress Note Date: 10/31/23 This is a 18-year-old female who was brought to the emergency department for order for noncompliance with [facility] with acute manic episode also found to be coping positive and patient was reportedly 10 weeks . Ultrasound confirmed and patient was evaluated briefly by LEARNING AND DEVELOPMENT ASSOCIATE and unsure if patient is receiving obstetric care outpatient. Patient with significant manic episodes with frequent outbursts requiring brief period of restraints and is being closely followed by psychiatry along with infectious disease. Patient is not having any symptomology regarding Covid although according to hospital protocol Covid patients cannot go to psych unit here. Patient being monitored with psychiatry following adjustments to medications on a medical floor. Patient was given significant doses of Zyprexa along with Haldol and is continued on these medications. Patient was started on Abilify although reported to psychiatry admitted her feel more anxious and more ear trouble and refusing to take. Ab ilify has been discontinued. Patient afebrile with no reports of chest pain or shortness of breath. Patient is extremely anxious and wants to leave and does have sitter at bedside for close monitoring. 10/30/2023 Patient is seen in follow-up today currently slightly more cooperative although continues to be manic and is on the medical surgical unit this patient was tested positive for Covid. Psychiatry following as patient is court ordered and has been mandated to take medication although patient has been refusing multiple medications stating it makes her feel worse and more anxious. Patient is also 11 weeks and was evaluated by LEARNING AND DEVELOPMENT ASSOCIATE and per patient, would like to discuss further plan of care with them as she reports she doesn't recall being evaluated by them on admission. Patient is maintained on Flagyl for trichomonas with infectious disease following. Patient is positive for Covid although not experiencing any shortness of breath. Patient does have as needed inhaler as she reports she does have history of asthma. Patient also asking for assistance with removing one of her gauge piercings on the left ear that she feels is causing pain and having difficulty removing it. Patient is afebrile with no reported chest pain or shortness of breath. Patient reports to tolerating diet. According to protocol patient would be 10 days after positive Covid test this u pcoming on 11/02/2023. 10/31/2023 Patient is seen in follow-up today continues on court order petition from noncompliance with [facility] being followed by titrating as patient is unable to go to the psych unit due to being COVID-19 positive. Patient is not experiencing any symptoms and maintaining oxygen saturation on room air with no difficulties and shortness of breath. Patient chronically has asthma and uses an inhaler as needed and per medication reconciliation patient has been refusing. Patient also on Zyprexa and Haldol and has been having multiple requests of refusing medications although patient has court ordered to be medication compliant. According to policy here, patient will be 10 days from COVID-19 testing this and will discuss further with psychiatry in regards to transferring the patient or treatment plan moving forward. Social work following and has made multiple attempts at other facilities that could accommodate although they are all declining the patient as patient is also 11 weeks . Review of systems: Constitutional: No reports of fatigue, fever, or chills, reports of extreme anxiety Cardiovascular: No reports of chest pain or palpitations Respiratory: No reports of shortness of breath or cough GI: No reports of nausea, no reports of vomiting, no diarrhea : No reports of dysuria or retention Neurovascular: no reports of generalized weakness All medications have been reviewed PHYSICAL EXAMINATION: GENERAL: The patient is alert and oriented x4, extremely manic and extremely anxious Well developed, well nourished. Thin built HEENT: Pupils are round and equally reacting to light. EOMI. no scleral icterus. No conjunctival pallor. Normocephalic, atraumatic. No pharyngeal erythema. No thyromegaly. CARDIOVASCULAR: S1 and S2 muffled PULMONARY: diminished breath sounds bilaterally with no wheezing or rhonchi noted. ABDOMEN: soft. Nontender on exam. non-distended, normoactive bowel sounds. No palpable organomegaly. MUSCULOSKELETAL: No joint swelling or deformity. EXTREMITIES: No cyanosis, clubbing, or pedal edema. NEUROLOGICAL: Gross neurological examination did not reveal any focal deficits. Steady gait SKIN: No rashes. Assessment: Acute manic episode, secondary to bipolar Acute COVID-19 infection Trichomonas 11 weeks gestation Attention deficit disorder, attention deficit hyperactivity disorder History of vaping History of noncompliance with [facility] on court order History of THC GI prophylaxis DVT prophylaxis Full code Plan: Recommend to continue with current medications and management per psychiatry orders. Patient is court ordered for noncompliance from [facility] for manic episode and is currently continuing to experience jose requiring multiple administrations of psychiatry medications. Patient was started on Abilify although reports having extreme anxiety and agitation refusing to take this and psychiatry has discontinued Patient is COVID-19 positive with no symptomology and reports she does not feel she has Covid Infectious disease following as well as patient is maintained on Flagyl for trichomonas Patient unable to go to [address] due to COVID-19 diagnosis and social work following working on other possible psychiatric facilities although none available and continuing to look for Patient to continue with a sitter at the bedside as patient is on court order and unable to leave AMA Patient was seen and evaluated by gynecology and underwent ultrasound which was 11 weeks gestation and was evaluated again by obstetrics today. Obtaining follow-up labs regarding trichomonas as patient is maintained on Flagyl for this Overall prognosis is guarded The impression and plan of care has been dictated by Tatyana Rollins, nurse practitioner as directed. Dr. Izaiah MD I have performed a history and examination and MDM of this patient, discussed the same with the dictator, and agree with the dictator's assessment and plan as written ,documented as a scribe. Based on total visit time, I have performed more than 50% of the visit. Any additional findings or plans will be noted. Objective - Vital Signs Vital signs: Vital Signs Temp 97.7 F 10/31/23 09:08 Pulse 96 10/31/23 09:08 Resp 16 10/31/23 09:08 BP 95/58 10/31/23 09:08 Pulse Ox 97 10/31/23 09:08 FiO2 Intake & Output 10/30/23 10/31/23 10/31/23 18:59 06:59 18:59 Intake Total 290 Balance 290 Weight 68.039 kg Intake: Oral 290 Other: Voiding Method Toilet # Voids 1 - Labs CBC & Chem 7: 10/24/23 11:31 10/24/23 11:31
--- NOTE | 2023-10-31 18:07 | P.PN ---
Subjective Progress Note Date: 10/27/23 Principal diagnosis: Reason for follow-up is covid 19 Patient is a 18-year-old female with a past medical history significant for asthma did have a history of ADHD presenting to the ER for evaluation of psych evaluation patient was brought in by [place] [employer] [facility] on a court order , patient also tested positive for covid , patient is x-ray with mild interstitial infiltrate On today's evaluation that is 10/27/2023, the patient remains to be afebrile and is breathing comfortably on room air and no need for oxygen, and patient denies chest pain shortness of breath, and no cough or sputum production, patient denies nausea/vomiting, denies having any diarrhea and no abdominal pain, patient mentions she has been recently diagnosed with Trichomonas and jose l terial vaginosis by the health department and has not received medication Patient did have white count of 7.8, creatinine 0.43 as of 10/24/2023 Objective - Vital Signs Vital signs: Vital Signs Temp 98 F 10/27/23 07:13 Pulse 110 H 10/27/23 07:13 Resp 24 10/27/23 07:13 BP 111/62 10/27/23 07:13 Pulse Ox 97 10/27/23 07:13 FiO2 Intake & Output 10/26/23 10/27/23 10/27/23 18:59 06:59 18:59 Other: Voiding Method Toilet Toilet Toilet # Voids 1 1 - Exam GENERAL DESCRIPTION: A young female lying in bed in no distress RESPIRATORY SYSTEM: Unlabored breathing , clear to auscultation anteriorly HEART: S1 S2 regular rate and rhythm , ABDOMEN: Soft , no tenderness EXTREMITIES: No edema feet - Labs CBC & Chem 7: 10/24/23 11:31 10/24/23 11:31 Labs: Microbiology - Last 24 Hours (Table) 10/24/23 15:54 Blood Culture - Preliminary Blood Assessment and Plan (1) COVID-19 Current Visit: Yes Status: Acute Code(s): U07.1 - COVID-19 SNOMED Code(s): 565155166 (2) Trichomonas contact, untreated Current Visit: Yes Status: Acute Code(s): Z20.2 - CONTACT W AND EXPOSURE TO INFECT W A SEXL MODE OF TRANSMISS SNOMED Code(s): 196251557 Plan: 1patient presented to hospital for psych evaluation and the patient apparently was going through a manic episode, patient did tested positive for COVID-19 mostly incidental finding as the patient was not having significant respiratory symptoms patient is currently not hypoxic or need for supplemental oxygen and not running any fever chest x-ray with nutritional pneumonitis questionably to an underlying asthma 2-treatment for COVID is most supportive and there is no need for steroids or remdesivir 3-patient with recent diagnosis of Trichomonas and bacterial vaginosis will add Flagyl 500 mg twice a day for 7 days Dictation was produced using [employer] software. please excuse any grammatical, word or spelling errors. Time with Patient: Less than 30
--- NOTE | 2023-10-31 18:08 | P.PN ---
Subjective Progress Note Date: 10/28/23 Principal diagnosis: Reason for follow-up is covid 19 This is a telehealth visit Patient is a 18-year-old female with a past medical history significant for asthma did have a history of ADHD presenting to the ER for evaluation of psych evaluation patient was brought in by [employer] [facility] on a court order , patient also tested positive for covid , patient is x-ray with mild interstitial infiltrate On today's evaluation that is 10/28/2023, the patient continues to be afebrile and is breathing comfortably on room air, and patient denies chest pain short ness of breath, and no cough or sputum production, patient denies nausea/vomiting, denies having any diarrhea and no abdominal pain, Patient did have white count of 7.8, creatinine 0.43 as of 10/24/2023 Objective - Vital Signs Vital signs: Vital Signs Temp 98.1 F 10/27/23 20:00 Pulse 106 H 10/27/23 20:00 Resp 16 10/27/23 20:00 BP 126/82 10/27/23 20:00 Pulse Ox 98 10/27/23 20:00 FiO2 Intake & Output 10/27/23 10/28/23 10/28/23 18:59 06:59 18:59 Intake Total 200 Balance 200 Intake: Oral 200 Other: Voiding Method Toilet Toilet # Voids 2 - Exam GENERAL DESCRIPTION: A young female lying in bed in no distress RESPIRATORY SYSTEM: Unlabored breathing , clear to auscultation anteriorly HEART: S1 S2 regular rate and rhythm , ABDOMEN: Soft , no tenderness Exam completed with the help of POLY PACKER AND HEAT SEALER - Labs CBC & Chem 7: 10/24/23 11:31 10/24/23 11:31 Labs: Microbiology - Last 24 Hours (Table) 10/24/23 15:54 Blood Culture - Preliminary Blood Assessment and Plan (1) COVID-19 Current Visit: Yes Status: Acute Code(s): U07.1 - COVID-19 SNOMED Code(s): 293586165 (2) Trichomonas contact, untreated Current Visit: Yes Status: Acute Code(s): Z20.2 - CONTACT W AND EXPOSURE TO INFECT W A SEXL MODE OF TRANSMISS SNOMED Code(s): 139352052 Plan: 1patient presented to hospital for psych evaluation and the patient apparently was going through a manic episode, patient did tested positive for COVID-19 mostly incidental finding as the patient was not having significant respiratory symptoms patient is currently not hypoxic or need for supplemental oxygen and not running any fever chest x-ray with nutritional pneumonitis questionably to an underlying asthma 2-patient respiratory status is stable and treatment for COVID is most supportive and there is no need for steroids or remdesivir 3-patient with recent diagnosis of Trichomonas and bacterial vaginosis we will c ontinue with Flagyl 500 mg twice a day for 7 days Dictation was produced using [employer] software. please excuse any grammatical, word or spelling errors. Time with Patient: Less than 30
--- NOTE | 2023-10-31 18:09 | P.PN ---
Subjective Progress Note Date: 10/29/23 Principal diagnosis: Reason for follow-up is covid 19 This is a telehealth visit Patient is a 18-year-old female with a past medical history significant for asthma did have a history of ADHD presenting to the ER for evaluation of psych evaluation patient was brought in by [employer] [facility] on a court order , patient also tested positive for covid , patient is x-ray with mild interstitial infiltrate On today's evaluation that is 10/29/2023, the patient remains to be afebrile and is breathing comfortably on room air and no need for supplemental oxygen, a nd patient denies chest pain shortness of breath did have occasional cough but no sputum production, patient denies nausea/vomiting, denies having any diarrhea and no abdominal pain, Patient did have white count of 7.8, creatinine 0.43 as of 10/24/2023 Objective - Vital Signs Vital signs: Vital Signs Temp 98.3 F 10/28/23 20:00 Pulse 102 H 10/28/23 20:00 Resp 20 10/28/23 14:00 BP 104/67 10/28/23 20:00 Pulse Ox 98 10/28/23 20:00 FiO2 Intake & Output 10/28/23 10/29/23 10/29/23 18:59 06:59 18:59 Intake Total 240 Balance 240 Intake: Oral 240 Other: Voiding Method Toilet # Voids 1 - Exam GENERAL DESCRIPTION: A young female lying in bed in no distress RESPIRATORY SYSTEM: Unlabored breathing , clear to auscultation anteriorly HEART: S1 S2 regular rate and rhythm , ABDOMEN: Soft , no tenderness Exam completed with the help of AIRPORT LOCATION MANAGER - Labs CBC & Chem 7: 10/24/23 11:31 10/24/23 11:31 Assessment and Plan (1) COVID-19 Current Visit: Yes Status: Acute Code(s): U07.1 - COVID-19 SNOMED Code(s): 684954682 (2) Trichomonas contact, untreated Current Visit: Yes Status: Acute Code(s): Z20.2 - CONTACT W AND EXPOSURE TO INFECT W A SEXL MODE OF TRANSMISS SNOMED Code(s): 385531329 Plan: 1patient presented to hospital for psych evaluation and the patient apparently was going through a manic episode, patient did tested positive for COVID-19 mostly incidental finding as the patient was not having significant respiratory symptoms patient is currently not hypoxic or need for supplemental oxygen and not running any fever chest x-ray with nutritional pneumonitis questionably to an underlying asthma 2-patient respiratory status remains to be stable and treatment for COVID is most supportive and isolation can be discontinued after 5 days 3-patient with recent diagnosis of Trichomonas and bacterial vaginosis we will continue with Flagyl 500 mg twice a day for 7 days Dictation was produced using [employer] software. please excuse any grammatical, word or spelling errors. Time with Patient: Less than 30
--- NOTE | 2023-10-31 18:11 | P.PN ---
Subjective Progress Note Date: 10/30/23 Principal diagnosis: Reason for follow-up is covid 19 Patient is a 18-year-old female with a past medical history significant for asthma did have a history of ADHD presenting to the ER for evaluation of psych evaluation [facility] , patient also tested positive for covid , patient is x- ray with mild interstitial infiltrate On today's evaluation that is 10/30/2023, the patient denies any fever or any chills, the patient is breathing comfortably on room air , and patient denies chest pain shortness of breath did have occasional cough but no sputum production, patient denies nausea/vomiting, denies having any diarrhea and no abdominal pain, Patient did have white count of 7.8, creatinine 0.43 as of 10/24/2023 Objective - Vital Signs Vital signs: Vital Signs Temp 98 F 10/30/23 10:25 Pulse 112 H 10/30/23 10:25 Resp 16 10/30/23 10:25 BP 118/83 10/30/23 10:25 Pulse Ox 98 10/30/23 10:25 FiO2 Intake & Output 10/29/23 10/30/23 10/30/23 18:59 06:59 18:59 Intake Total 222 290 Balance 222 290 Intake: Oral 222 290 Other: Voiding Method Toilet Toilet # Voids 1 2 - Exam GENERAL DESCRIPTION: A young female lying in bed in no distress RESPIRATORY SYSTEM: Unlabored breathing , clear to auscultation anteriorly HEART: S1 S2 regular rate and rhythm , ABDOMEN: Soft , no tenderness - Labs CBC & Chem 7: 10/24/23 11:31 10/24/23 11:31 Labs: Microbiology - Last 24 Hours (Table) 10/24/23 15:54 Blood Culture - Final Blood Assessment and Plan (1) COVID-19 Current Visit: Yes Status: Acute Code(s): U07.1 - COVID-19 SNOMED Code(s): 191991711 (2) Trichomonas contact, untreated Current Visit: Yes Status: Acute Code(s): Z20.2 - CONTACT W AND EXPOSURE TO INFECT W A SEXL MODE OF TRANSMISS SNOMED Code(s): 595906189 Plan: 1patient presented to hospital for psych evaluation and the patient apparently was going through a manic episode, patient did tested positive for COVID-19 mostly incidental finding as the patient was not having significant respiratory symptoms patient is currently not hypoxic or need for supplemental oxygen and not running any fever chest x-ray with nutritional pneumonitis questionably to an underlying asthma 2-patient respiratory status remains to be stable and treatment for COVID is most supportive and patient does not need 10 days of isolation and can be better served on the psych floor 3-patient with recent diagnosis of Trichomonas and bacterial vaginosis, patient to continue with Flagyl 500 mg twice a day to finish 7 days of therapy Dictation was produced using [employer] dictation software. please excuse any grammatical, word or spelling errors. Time with Patient: Less than 30
--- NOTE | 2023-10-31 18:12 | P.PN ---
Subjective Progress Note Date: 10/31/23 Principal diagnosis: Reason for follow-up is covid 19 Patient is a 18-year-old female with a past medical history significant for asthma did have a history of ADHD presenting to the ER for evaluation of psych evaluation patient was brought in by [facility] tmetrue on a court order , patient also tested positive for covid , patient is x- ray with mild interstitial infiltrate On today's evaluation that is 10/31/2023, the patient remains to be afebrile, the patient is breathing comfortably on room air , and patient denies chest pain shortness of breath or cough and no sputum production, patient denies nausea/vomiting, denies having any diarrhea and no abdominal pain, patient insisting on going home Patient did have white count of 7.8, creatinine 0.43 as of 10/24/2023 Objective - Vital Signs Vital signs: Vital Signs Temp 97.9 F 10/31/23 12:00 Pulse 117 H 10/31/23 12:00 Resp 16 10/31/23 12:00 BP 113/75 10/31/23 12:00 Pulse Ox 98 10/31/23 12:00 FiO2 Intake & Output 10/30/23 10/31/23 10/31/23 18:59 06:59 18:59 Intake Total 290 Balance 290 Weight 68.039 kg Intake: Oral 290 Other: Voiding Method Toilet # Voids 1 - Exam GENERAL DESCRIPTION: A young female lying in bed in no distress RESPIRATORY SYSTEM: Unlabored breathing , clear to auscultation anteriorly HEART: S1 S2 regular rate and rhythm , ABDOMEN: Soft , no tenderness - Labs CBC & Chem 7: 10/24/23 11:31 10/24/23 11:31 Assessment and Plan (1) COVID-19 Current Visit: Yes Status: Acute Code(s): U07.1 - COVID-19 SNOMED Code(s): 018248361 (2) Trichomonas contact, untreated Current Visit: Yes Status: Acute Code(s): Z20.2 - CONTACT W AND EXPOSURE TO INFECT W A SEXL MODE OF TRANSMISS SNOMED Code(s): 876657749 Plan: 1patient presented to hospital for psych evaluation and the patient apparently was going through a manic episode, patient did tested positive for COVID-19 mos tly incidental finding as the patient was not having significant respiratory symptoms patient is currently not hypoxic or need for supplemental oxygen and not running any fever chest x-ray with nutritional pneumonitis questionably to an underlying asthma 2-patient with recent diagnosis of Trichomonas and bacterial vaginosis, patient to continue with Flagyl 500 mg twice a day to finish 7 days of therapy 3-patient respiratory status remains to be stable and clinically not behaving is covId pneumonia, treatment for COVID is most supportive and patient does not need 10 days of isolation and can be better served on the psych floor, this was discussed with the psychiatrist on the case Dictation was produced using [employer] dictation software. please excuse any grammatical, word or spelling errors. Time with Patient: Less than 30
[2023-10-31] MEDS ORDERED: OLANZapine 10 MG TAB PO SCH (21:00)
[2023-11-01] MEDS ORDERED: MULTIVITAMINS, THERA 1 EACH TAB PO SCH (09:00)
[2023-11-01] MEDS: ALBUTEROL HFA INHALER INHALATION SCH ×4 (09:08→20:53)
[2023-11-01] MEDS: PRENATAL VIT-IRON-FOLIC ACID 1 EACH TABLET PO SCH (11:08)
[2023-11-01] MEDS: OLANZapine 5 MG TAB PO SCH (11:21)
[2023-11-01] MEDS: metroNIDAZOLE 500 MG TAB PO SCH ×2 (11:21→22:14)
[2023-11-01] MEDS: ACETAMINOPHEN TAB 500 MG TAB PO PRN ×2 (12:56→22:17)
--- NOTE | 2023-11-01 13:54 | P.PN ---
Progress Note - Text Progress Note Date: 11/01/23 Interval History: Patient was seen today for psychiatric follow up. Patient is in her room, and agreeable to speak to web content writer. Patient continues to have a sitter outside of her room. She is less hyperverbal today, continued to be focused on discharge. She appears to be more future oriented today. Less irritable today. States that she is tolerating the medications fairly well. We spoke extensively about the court order and also the need for compliance of medications. We also spoke abo ut the act team coming to her house daily to watch her take her medications. Patient appeared to understand the plan. She was agreeable to be discharged possibly tomorrow if she is continuing to do well. She states that she is sleeping fairly at nighttime, somewhat tired during the day. Consider mood and anxiety is improving. Insight and judgment appear to be superficial and chronically poor. Claims that she is sleeping better at nighttime. She is denying any suicidal or homicidal ideations intent or plan. In any any auditory or visual hallucinations. MENTAL STATUS EXAM: General Appearance: Patient appears to be stated age is alert, directable, and attempts to cooperate, improving. Patient appears to have fair hygiene and grooming. The patient has numerous tattoos and has green hair with glasses. Behavior: Patient is Psychomotor activity is less elevated today. Eye contact is intense. Less demanding today Speech: Patient's speech is fluent, linear, improving mildly Mood/Affect: Patient reports their mood is "good" affect is improving mildly Suicidality/Homicidality: Patient denies any suicidal or homicidal ideation, intention, and/or plan. Perceptions: Patient denies any visual hallucinations but she reports auditory hallucinations. Though content/process: The patient poor insight, improving mildly. More goal oriented. Memory and concentration: Memory and concentration appeared to be fair, patient is more directable today Judgment and insight: Superficial, poor yet, mildly improving IMPRESSIONS: Bipolar disorder, current episode manic severe Cannabis use disorder PLAN: -At this time patient DOES meet criteria for inpatient psychiatric admission over due to patient being positive for covid she will continue receiving psychiatric care while on the medical floors. -Would recommend the following medication changes/additions: Changed zyprexa 15 mg qhs for mood stabilization/sleep. Patient is currently on a mental health court order and is required to take medications, if she is refusing PO Zyprexa then please give IM Haldol -will have to communicate with her outpatient team at [facility] to ensure safe discharge plan when she is back to baseline. FINANCIAL SERVICES TECHNICIAN was contact by nursing staff to approve medications for use as patient is . The risk of teratogenicity is lower likely harm than non treatment of patients manic episode and aggression -Refinery Operator Helper spoke with [facility] psychiatrist Dr Melissa about patient's case to discuss treatment and plan. We agreed that patient should have a higher level of outpatient care and will be seen daily by the act team to have her observed taking the medications under her court order. If patient fails to do so. She is to receive IM Haldol or possibly brought back to the hospital for further tr eatment. -Haldol by mouth and IM when necessary for agitation. -Continue 1:1 sitter for safety -Cannot leave AMA at this time as patient is currently on an active court order. -Communicated plan to patient's nurse -Will continue to follow along, likely sign off tomorrow and patient can be discharged only after she is seen by ACT team from [facility] to coordinate services and house visits. -Please contact with any questions.
--- NOTE | 2023-11-01 14:18 | P.PN ---
Subjective Progress Note Date: 11/01/23 This is a 18-year-old female who was brought to the emergency department for order for noncompliance with [facility] with acute manic episode also found to be coping positive and patient was reportedly 10 weeks . Ultrasound confirmed and patient was evaluated briefly by CONSTRUCTION EQUIPMENT OVERHAULER and unsure if patient is receiving obstetric care outpatient. Patient with significant manic episodes with frequent outbursts requiring brief period of restraints and is being closely followed by psychiatry along with infectious disease. Patient is not having any symptomology regarding Covid although according to hospital protocol Covid patients cannot go to psych unit here. Patient being monitored with psychiatry following adjustments to medications on a medical floor. Patient was given significant doses of Zyprexa along with Haldol and is continued on these medications. Patient was started on Abilify although reported to psychiatry admitted her feel more anxious and more ear trouble and refusing to take. Ab ilify has been discontinued. Patient afebrile with no reports of chest pain or shortness of breath. Patient is extremely anxious and wants to leave and does have sitter at bedside for close monitoring. 10/30/2023 Patient is seen in follow-up today currently slightly more cooperative although continues to be manic and is on the medical surgical unit this patient was tested positive for Covid. Psychiatry following as patient is court ordered and has been mandated to take medication although patient has been refusing multiple medications stating it makes her feel worse and more anxious. Patient is also 11 weeks and was evaluated by [facility] EQUIPMENT OVERHAUL[facility] and per patient, would like to discuss further plan of care with them as she reports she doesn't recall being evaluated by them on admission. Patient is maintained on Flagyl for trichomonas with infectious disease following. Patient is positive for Covid although not experiencing any shortness of breath. Patient does have as needed inhaler as she reports she does have history of asthma. Patient also asking for assistance with removing one of her gauge piercings on the left ear that she feels is causing pain and having difficulty removing it. Patient is afebrile with no reported chest pain or shortness of breath. Patient reports to tolerating diet. According to protocol patient would be 10 days after positive Covid test this u pcoming on 11/02/2023. 10/31/2023 Patient is seen in follow-up today continues on court order petition from noncompliance with [facility] being followed by titrating as patient is unable to go to the psych unit due to being COVID-19 positive. Patient is not experiencing any symptoms and maintaining oxygen saturation on room air with no difficulties and shortness of breath. Patient chronically has asthma and uses an inhaler as needed and per medication reconciliation patient has been refusing. Patient also on Zyprexa and Haldol and has been having multiple requests of refusing medications although patient has court ordered to be medication compliant. According to policy here, patient will be 10 days from COVID-19 testing this and will discuss further with psychiatry in regards to transferring the patient or treatment plan moving forward. Social work following and has made multiple attempts at other facilities that could accommodate although they are all declining the patient as patient is also 11 weeks . 11/01/2023 Patient is seen in follow-up this morning continues to be followed by a sitter and psychiatry on court order for mandated medications as patient was noncompliant with [facility]. Patient was admitted to medical floor for Covid although is not symptomatic. Patient is extremely frustrated and anxious wanting to go home. Patient awaiting [facility] evaluation with the act team for possible discharge planning in 24 hours. Patient was brought to the medical floor for COVID-19 positive test results on 10/23/2023 and today sales the day of #10 at 1700 and according to policy patient could potentially return to psychiatric unit for further evaluation. Patient is medically stable and again awaiting [facility] and act team to be evaluated for discharge. Psychiatry recommending making adjustments to medications and will likely sign off tomorrow. Review of systems: Constitutional: No reports of fatigue, fever, or chills, reports of extreme anxiety as she feels she is being forced to stay here and does not need to be in a hospital Cardiovascular: No reports of chest pain or palpitations Respiratory: No reports of shortness of breath or cough GI: No reports of nausea, no reports of vomiting, no diarrhea : No reports of dysuria or retention Neurovascular: no reports of generalized weakness All medications have been reviewed PHYSICAL EXAMINATION: GENERAL: The patient is alert and oriented x4, extremely anxious although much more appropriate today. Well developed, well nourished. Thin built HEENT: Pupils are round and equally reacting to light. EOMI. no scleral icterus. No conjunctival pallor. Normocephalic, atraumatic. No pharyngeal erythema. No thyromegaly. CARDIOVASCULAR: S1 and S2 muffled PULMONARY: diminished breath sounds bilaterally with no wheezing or rhonchi noted. ABDOMEN: soft. Nontender on exam. non-distended, normoactive bowel sounds. No palpable organomegaly. MUSCULOSKELETAL: No joint swelling or deformity. EXTREMITIES: No cyanosis, clubbing, or pedal edema. NEUROLOGICAL: Gross neurological examination did not reveal any focal deficits. Steady gait SKIN: No rashes. Assessment: Acute manic episode, secondary to bipolar Acute COVID-19 infection Trichomonas 11 weeks gestation Attention deficit disorder, attention deficit hyperactivity disorder History of vaping History of noncompliance with [facility] on court order History of THC GI prophylaxis DVT prophylaxis Full code Plan: Recommend to continue with current medications and management per psychiatry orders. Patient is court ordered for noncompliance from [facility] for manic episode and is currently continuing to experience jose although appears to be improving. Psychiatry following making adjustments to medications and awaiting [facility] evaluation from the act team to consider discharge planning in 24 hours. Patient is COVID-19 positive with no symptomology and reports she does not feel she has Covid. Patient asking for repeat testing of Covid although there is no need and will not retest at this time Infectious disease following as well as patient is maintained on Flagyl for trichomonas Patient to continue with a sitter at the bedside as patient is on court order and unable to leave AMA Patient was seen and evaluated by gynecology and underwent ultrasound which was 11 weeks gestation and was evaluated again by obstetrics today. Obtaining follow-up labs regarding trichomonas as patient is maintained on Flagyl for this Overall prognosis is guarded Probable discharge in 24 hours if patient has been evaluated by the act team with [facility] The impression and plan of care has been dictated by Tatyana Rollins, nurse practitioner as directed. Dr. Izaiah MD I have performed a history and examination and MDM of this patient, discussed the same with the dictator, and agree with the dictator's assessment and plan as written ,documented as a scribe. Based on total visit time, I have performed more than 50% of the visit. Any additional findings or plans will be noted. Objective - Vital Signs Vital signs: Vital Signs Temp 97.5 F L 11/01/23 12:10 Pulse 127 H 11/01/23 12:10 Resp 17 12/13/23 12:10 BP 104/72 11/01/23 12:10 Pulse Ox 98 11/01/23 12:10 FiO2 Intake & Output 10/31/23 11/01/23 11/01/23 18:59 06:59 18:59 Intake Total 236 Balance 236 Intake: Oral 236 Other: Voiding Method Toilet Toilet # Voids 3 2 - Labs CBC & Chem 7: 10/24/23 11:31 10/24/23 11:31 Labs: Abnormal Lab Results - Last 24 Hours (Table) 10/31/23 Range/Units 13:35 Ur Leukocyte Esterase Large H (Negative) Urine RBC 14 H (0-5) /hpf Urine Bacteria Rare H (None) /hpf
[2023-11-01 15:09] LABS: N. gonorrhoeae,PCR Negative (Negative)
[2023-11-01 15:22] LABS: C. trachomatis,PCR Negative (Negative)
[2023-11-01] MEDS ORDERED: OLANZapine 5 MG TAB PO SCH (21:00)
[2023-11-02] MEDS: ALBUTEROL HFA INHALER INHALATION SCH ×3 (08:47→15:52)
[2023-11-02] MEDS: PRENATAL VIT-IRON-FOLIC ACID 1 EACH TABLET PO SCH (09:11)
[2023-11-02] MEDS: ACETAMINOPHEN TAB 500 MG TAB PO PRN (10:04)
[2023-11-02] MEDS: metroNIDAZOLE 500 MG TAB PO SCH (10:06)
[2023-11-02 15:11] VITALS: BP 120/77; PULSE 112; RESP 16; TEMP 98.4
--- NOTE | 2023-11-04 11:05 | P.DS ---
Providers Date of admission: 10/23/23 19:35 Expected date of discharge: 11/02/23 Attending physician: Gareth Love Consults: 10/23/23 19:23 Consult Physician Urgent Consulting Provider: Rui Pagan Consult Reason/Comments: jose Do you want consulting provider notified?: Yes Consult Physician Urgent Consulting Provider: Demetrius Donovan Consult Reason/Comments: mgmt regarding Do you want consulting provider notified?: Yes 10/25/23 12:35 Consult Physician Routine Consulting Provider: Myles Melissa Consult Reason/Comments: covid Do you want consulting provider notified?: Yes [facility] Course: Final diagnosis Acute manic episode, secondary to bipolar Acute COVID-19 infection Trichomonas 11 weeks gestation Attention deficit disorder, attention deficit hyperactivity disorder History of vaping History of noncompliance with [facility] on court order History of THC GI prophylaxis DVT prophylaxis Full code Discharge disposition Patient is being discharged in a stable condition with guarded prognosis to home and followed with the [facility] act team. Patient will follow-up with Dr. Page in the outpatient setting upon discharge. Patient is to continue with court ordered medication compliance and close outpatient follow-up with [facility] as scheduled. Patient to follow-up with [facility] in the outpatient setting as well. Total time taken is greater than 35 minutes. Hospital course This is a 18-year-old female who was recently admitted with court order petition for noncompliance to medication was [facility] and initially was scheduled to go to psych unit although was found to be COVID-19 positive. Patient experiencing no symptomology with history of asthma per patient and maintained on room air with no significant shortness of breath entire hospitalization. Patient being followed by psychiatry and was evaluated by the crisis team [facility] act and will continue to follow outpatient. Patient also evaluated by [facility] as patient is 11 weeks and was also diagnosed with trichomonas prior to hospitalization. Infectious disease following an patient was maintained on antibiotics and will continue 5 day course to complete the course. Patient has been instructed to follow-up with [facility] as well as [facility] outpatient. Currently no reports of chest pain, shortness of breath, or palpitations. Patient is afebrile. No reports of nausea or vomiting and patient is tolerating diet. Patient will be discharged home today. High risk for readmissions given patient's significant psychiatric history and noncompliance with medications. Please refer to other consultation notes for further HPI Physical exam: Gen: This is a 18-year-old female who is awake, alert and oriented 3, anxious, well-developed, well-nourished HEENT: Head is atraumatic, normocephalic. Pupils equal, round. Sclerae is anicteric. NECK: Supple. No JVD. No lymphadenopathy. No thyromegaly. LUNGS: Clear to auscultation. No wheezes or rhonchi. No intercostal retractions. HEART: Regular rate and rhythm. No murmur. ABDOMEN: Soft. Bowel sounds are present. No masses. No tenderness. EXTREMITIES: No pedal edema. No calf tenderness. NEUROLOGICAL: Patient is awake, alert and oriented x3. Cranial nerves 2 through 12 are grossly intact. Please refer to medication reconciliation sheet for a list of medications. The impression and plan of care has been dictated by Tatyana Rollins, Nurse Practitioner as directed. Dr. Izaiah MD I have performed a history and examination and MDM of this patient, discussed the same with the dictator, and agree with the dictator's assessment and plan as written ,documented as a scribe. Based on total visit time, I have performed more than 50% of the visit. Patient Condition at Discharge: Fair Plan - Discharge Summary Discharge Rx Participant: No New Discharge Prescriptions: New metroNIDAZOLE [Flagyl] 500 mg PO BID 5 Days #10 tab Vit No.179/Iron/Folic [ Tablet] 1 each PO DAILY #30 tab OLANZapine [ZyPREXA] 15 mg PO HS 15 Days #42 tab Acetaminophen Tab [Tylenol] 500 mg PO Q6HR PRN tab PRN Reason: Fever And/ Or Pain Albuterol Inhaler [Ventolin Hfa Inhaler] 2 puff INHALATION RT-QID 30 Days #1 each Discharge Medication List Acetaminophen Tab [Tylenol] 500 mg PO Q6HR PRN tab 11/02/23 [Rx] Albuterol Inhaler [Ventolin Hfa Inhaler] 2 puff INHALATION RT-QID 30 Days #1 each 11/02/23 [Rx] OLANZapine [ZyPREXA] 15 mg PO HS 15 Days #42 tab 11/02/23 [Rx] Vit No.179/Iron/Folic [ Tablet] 1 each PO DAILY #30 tab 11/02/23 [Rx] metroNIDAZOLE [Flagyl] 500 mg PO BID 5 Days #10 tab 11/02/23 [Rx] Follow up Appointment(s)/Referral(s): Carolann Page [Primary Care Provider] - 1-2 days Activity/Diet/Wound Care/Special Instructions: Okay to discharge once cleared by [facility] act team Prescription sent to [facility] Patient to follow-up with [facility] Dr [place] on November 06, 2023, at 1 PM. Follow-up with [facility] outpatient this week Continue antibiotics for 5 days to complete the course Follow-up with primary care provider on discharge Discharge Disposition: HOME SELF-CARE
== END 2023-11-02 18:40 | disposition home or self-care (01) | DRG 566 ==
LOC: EC 14:13 → EEVIPCON 19:35 → 6NMEDSUR 19:35 → OBSVTOIN 19:35 → 6NMEDSUR 10-24 07:45
PROVIDERS: ADMIT Hospitalist; ATTEND Hospitalist
DX: O99.341 Other mental disorders complicating pregnancy, first trimester (principal); U07.1 COVID-19; O99.611 Diseases of the digestive system complicating pregnancy, first trimester; O99.331 Smoking (tobacco) complicating pregnancy, first trimester; A59.00 Urogenital trichomoniasis, unspecified; F31.13 Bipolar disorder, current episode manic without psychotic features, severe; O98.311 Other infections with a predominantly sexual mode of transmission complicating pregnancy, first trimester; O98.511 Other viral diseases complicating pregnancy, first trimester; Z78.1 Physical restraint status; Z71.3 Dietary counseling and surveillance; Z28.21 Immunization not carried out because of patient refusal; J45.909 Unspecified asthma, uncomplicated; O99.321 Drug use complicating pregnancy, first trimester; O99.511 Diseases of the respiratory system complicating pregnancy, first trimester; Z3A.09 9 weeks gestation of pregnancy; F17.290 Nicotine dependence, other tobacco product, uncomplicated; F12.10 Cannabis abuse, uncomplicated; Z91.148 Patient's other noncompliance with medication regimen for other reason; Z91.199 Patient's noncompliance with other medical treatment and regimen due to unspecified reason
CPT/HCPCS: 71045; 76801; 80053; 80306; 81001; 81025; 82075; 85025; 85379; 86140; 87040; 87086; 87491; 87591; 87635; 87661; 94640; 96372; 99285

== ENCOUNTER 2024-01-27 12:05 | Outpatient (CLI) | payer OTHER ==
[2024-01-27 12:48] VITALS: BP 105/66; PULSE 101; RESP 18; TEMP 97.6
[2024-01-27 12:48] LABS: Amorphous Sediment,Urine Rare /hpf; Appearance,Urine Cloudy (Clear); Bilirubin,Urine Negative (Negative); Blood,Urine Trace (Negative); Color,Urine Light Yellow; Glucose,Urine (UA) Negative (Negative); Ketones,Urine Negative (Negative); Leukocyte Esterase,Urine Large (Negative); Mucus,Urine Rare /hpf; Nitrite,Urine Negative (Negative); Protein,Urine Trace (Negative); RBC,Urine 140 /hpf (0-5); Specific Gravity,Urine 1.021 (1.001-1.035); Squamous Epithelial Cell,Urine 4 /hpf (0-4); Urobilinogen,Urine <2.0 mg/dL (<2.0); WBC,Urine 162 /hpf (0-5)
--- NOTE | 2024-01-27 13:41 | US ---
EXAMINATION TYPE: US OB >= 14 wk fetus DATE OF EXAM: 01/27/2024 COMPARISON: US 10/24/2023 CLINICAL INDICATION: Female, 18 years old with history of c/o bleeding with heavy discharge.; [place] di scharge today, light bleeding yesterday, red color. . TECHNIQUE: Transabdominal (TA) GESTATIONAL AGE / DATING Physician Established: (23 weeks/4 days) EDC: 05/21/2024 Dates by LMP: (23 weeks/3 days) EDC: 05/22/2024 Dates by First Scan: (23 weeks/3 days) EDC: 05/22/2024 Dates by Current Scan: (23 weeks/4 days) EDC: 05/21/2024 SURVEY IUP: Single PLACENTA: Anterior Hypoechoic area seen measurin.7 x 2.3 x 1.4 cm. - question villa? PREVIA: No Previa JONNY: 15.3 cm Normal CERVICAL LENGTH (transabdominal: norm > 3.0cm): 3.2 cm BIOMETRY PRESENTATION: Breech BPD: 5.71 cm 23 weeks / 4 days HC: 22.10 cm 24 weeks / 1 day AC: 18.56 cm 23 weeks / 3 days FL: 3.98 cm 22 weeks / 6 days ESTIMATED WEIGHT IN GRAMS: 576 grams ESTIMATED WEIGHT IN LBS/OZ: 1 lb. 4 oz. WEIGHT PERCENTAGE BASED ON ESTABLISHED DATES: 27% HC/AC: 1.19 Normal FL/AC: 21% Normal HEART RATE: 123 bpm RHYTHM: Normal IMPRESSION: 1. Single live intrauterine with gestational age of 23 weeks 4 days, concordant with dating based on LMP. 2. Anterior placenta without previa. However, there is a 3.7 cm hypoechoic area along the surfa ce of the placenta. Unclear if this represents a venous villa or other etiology such as a small area o f hemorrhage. Consider short interval follow-up to reassess. 3. anatomy is not assessed on this emergent exam.
--- NOTE | 2024-02-14 20:50 | P.MSEPDOC ---
Presenting Problems - Arrival Data Date of Arrival on Unit: 01/27/24 Time of Arrival on Unit: 12:05 Mode of Transport: Portable - Complaint OB-Reason for Admission/Chief Complaint: Vaginal Bleeding Comment: pt arrives with c/o vag bleeding. None noted on panty liner or external exam per RN. Medical History - Information : 1 Para: 0 Term: 0 : 0 Abortions: Spontaneous or Elective: 0 Number of Living Children: 0 - Gestational Age Gestational Age by JULISA (wks/days): 23 Weeks and 4 Days Review of Systems - Review of Systems Constitutional: No problems Breast: No problems ENT: No problems Cardiovascular: No problems Respiratory: No problems Gastrointestinal: No problems Genitourinary: No problems Musculoskeletal: No problems Neurological: No problems Skin: No problems Vital Signs - Temperature Temperature: 97.6 F Temperature Source: Temporal Artery Scan - Pulse Right Pulse Oximetery Pulse Rate: 101 Pulse Assessment Method: Pulse Oximetry - Respirations Respiratory Rate: 18 Oxygen Delivery Method: Room Air O2 Sat by Pulse Oximetry: 98 - Blood Pressure Right Arm Blood Pressure: 105/66 Blood Pressure Mean: 79 Blood Pressure Source: Automatic Cuff Physician Notification - Physician Notified Physician Notified Date: 01/27/24 Physician Notified Time: 12:32 Physician: Naida Clifton New Order Received: Yes (UA and ultrasound.) - Notification Comment Comment: UA and ultrasound results reviewd with Dr. Clifton at 1330. Orders received for d/c home at this time with insturctions. Antibotic escribed to pt pharmacy. Maternal Triage Index - Maternal Triage Index Presenting for scheduled procedure w/no complaint: No - Stat/Priority 1 Stat Priority 1: No - Urgent/Priority 2 Urgent Priority 2: No - Prompt/Priority 3 Prompt Priority 3: No - Non-Urgent/Priority 4 Non-Urgent Priority 4: Yes Criteria Met for Priority 4: c/o red/pink bleeding starting 01/26/24. None noted on pt panty liner or external exam per RN. Thick, white-yellow foul smelling discharge noted. Disposition - Disposition OB Disposition: Triage, Discharge to home Discharge Date: 01/27/24 Discharge Time: 13:48 I agree with the RN Medical Screening Exam: Yes Case reviewed; plan agreed upon as documented in EMR&OBIX.: Yes Diagnosis: UTI in
== END 2024-01-27 13:48 | disposition home or self-care (01) ==
LOC: FBPOP 12:05
PROVIDERS: ATTEND Obstetrics & Gynecology
DX: O20.9 Hemorrhage in early pregnancy, unspecified (principal); O23.42 Unspecified infection of urinary tract in pregnancy, second trimester; N39.0 Urinary tract infection, site not specified; Z3A.23 23 weeks gestation of pregnancy
CPT/HCPCS: 76805; 81001; 99213

== ENCOUNTER → 2024-02-09 | Outpatient (CLI) | payer OTHER ==
--- NOTE | 2024-02-09 21:55 | US ---
EXAMINATION TYPE: US OB anatomy transabd DATE OF EXAM: 02/09/2024 COMPARISON: US 2023 CLINICAL INDICATION: Female, 18 years old with history of Z34.90 ENCNTR FOR SUPRVSN OF NORMAL PREGNAN CY, UNS; TECHNIQUE: Transabdominal (TA) EXAM MEASUREMENTS: GESTATIONAL AGE / DATING Physician Established: (25 weeks/3 days) EDC: 05/21/2024 Dates by LMP: Unknown Dates by First Scan: (25 weeks/0 days) EDC: 05/24/2024 Dates by Current Scan for: (25 weeks/5 days) EDC: 05/19/2024 SURVEY IUP: Single PLACENTA: Anterior - 2.0cm hypoechoic area PREVIA: No previa JONNY: 16.9 cm Normal CERVICAL LENGTH (transabdominal: norm > 3.0cm): 4.7 cm BIOMETRY PRESENTATION: Vertex LIE: Longitudinal BPD: 6.2 cm 25 weeks / 2 days HC: 23.9 cm 26 weeks / 0 days AC: 22.0 cm 26 weeks / 3 days FL: 4.6 cm 25 weeks / 1 days ESTIMATED WEIGHT IN GRAMS: 859 grams ESTIMATED WEIGHT IN LBS/OZ: 1 lbs. 14 oz. WEIGHT PERCENTAGE BASED ON ESTABLISHED DATE: 58 % HC/AC: 1.09 Normal FL/AC: 21% Normal HEART RATE: 139 bpm RHYTHM: Normal ANATOMY SEEN (within normal limits): * Lateral Vent (< 1 cm) 0.8 cm * Cisterna Magna (< 1.1 cm) 0.7 cm * Nuchal Fold (< 0.6 cm) 0.3 cm * Cerebellum (varies with age) 2.7 cm Choroid Plexus (bilateral) Midline Falx Cavus Septi Pellucidi Four Chamber Heart Outflow tracts: LVOT/RVOT Stomach Situs Nose / Lips Diaphragm Kidneys (bilateral) bilateral dilated renal pelvis Bladder Cord Insert Three Vessel Cord Longitudinal Spine Transverse Spine Arms (bilateral) Legs (bilateral) IMPRESSION: Single live intrauterine gestation ultrasound age 25 weeks 5 days.
== END | disposition home or self-care (01) ==
LOC: RADUSWWP 13:56
PROVIDERS: ATTEND Obstetrics & Gynecology
DX: Z34.92 Encounter for supervision of normal pregnancy, unspecified, second trimester (principal); Z3A.26 26 weeks gestation of pregnancy
CPT/HCPCS: 76811

== ENCOUNTER 2024-03-15 23:05 | Outpatient (CLI) | payer OTHER ==
[2024-03-15] MEDS: LACTATED RINGERS 1,000 ML IV ONE (23:57)
[2024-03-16 00:11] LABS: Appearance,Urine Cloudy (Clear); Bacteria,Urine Rare /hpf; Bilirubin,Urine Negative (Negative); Blood,Urine Large (Negative); Color,Urine Colorless; Glucose,Urine (UA) Negative (Negative); Ketones,Urine Negative (Negative); Leukocyte Esterase,Urine Large (Negative); Mucus,Urine Rare /hpf; Nitrite,Urine Negative (Negative); PH, Urine 7.5 (5.0-8.0); Protein,Urine Negative (Negative); RBC,Urine >182 /hpf (0-5); Squamous Epithelial Cell,Urine 2 /hpf (0-4); Urobilinogen,Urine <2.0 mg/dL (<2.0); WBC,Urine >182 /hpf (0-5)
[2024-03-16 01:27] VITALS: BP 117/65; PULSE 113; RESP 16; TEMP 97.1
--- NOTE | 2024-03-18 08:17 | P.MSEPDOC ---
Presenting Problems - Arrival Data Date of Arrival on Unit: 03/16/24 Time of Arrival on Unit: 23:05 Mode of Transport: Ambulatory - Complaint OB-Reason for Admission/Chief Complaint: Vaginal Bleeding Comment: Patient presents to triage with complaints of bright red vaginal bleeding starting at 2230 when wiping when using the restroom. Turned spotting after a couple of wipes. Medical History - Information : 1 Para: 0 Term: 0 : 0 Abortions: Spontaneous or Elective: 0 Number of Living Children: 0 - Gestational Age Gestational Age by JULISA (wks/days): 30 Weeks and 4 Days Review of Systems - Review of Systems Constitutional: No problems Breast: No problems ENT: No problems Cardiovascular: No problems Respiratory: No problems Gastrointestinal: No problems Genitourinary: No problems Musculoskeletal: No problems Neurological: No problems Skin: No problems Vital Signs - Temperature Temperature: 97.1 F Temperature Source: Temporal Artery Scan - Pulse Pulse Oximetery Pulse Rate: 113 Pulse Assessment Method: Automatic Cuff - Respirations Respiratory Rate: 16 Oxygen Delivery Method: Room Air O2 Sat by Pulse Oximetry: 97 - Blood Pressure Right Arm Blood Pressure: 117/65 Blood Pressure Mean: 82 Blood Pressure Source: Automatic Cuff Medical Screen Scoring - Assessment - Baby A Baseline FHR: 120 Heart Rate - NICHD Category: Category I (Normal) NST: Reactive Physician Notification - Physician Notified Physician Notified Date: 03/16/24 Physician Notified Time: 00:28 Physician: Cordelia New Order Received: Yes - Notification Comment Comment: 1 liter LR given as ordered, ua sent and reviewed, no bleeding on pad or with steril spec exam, thick white discharge noted on spec exam, orders tell pt. to start monostate 7 for yeast infection, waiting for culture to reflex for antiboitcs, orders to discharge pt. home Maternal Triage Index - Maternal Triage Index Presenting for scheduled procedure w/no complaint: No - Stat/Priority 1 Stat Priority 1: No - Urgent/Priority 2 Urgent Priority 2: Yes Provider Notified: Brittaney Dillon Provider Notified Time: 23:32 Criteria Met for Priority 2: Dr. Dillon called and notified of pt. present to tirage due to bleeding that started at 2230 tonight, pt. states she went up to use to restroom and wiped and found small amount of bright red blood and spoting after. pt. wore pantie linear in, small streak of darker red blood noted with small pensil error size clot, on external vag exam seems swollen and irritated and red, pt. states two weeks ago she took a 4 day pill for Trick also pt. was last in triage on 01/26 and had a UTI and was started on antibiotics, pt. states she dosnt think the 4 day pill worked, she c/o off white discharge, and itchy/irritation. orders to send urine, and start IV for 1 liter of LR and steril spec exam.also pt. was last in triage on 01/26 and had a UTI and was started on antibiotics, pt. states she dosnt think the 4 day pill worked, she c/o off white discharge, and itchy/irritation. orders to send urine, and start IV for 1 liter of LR and steril spec exam. also pt. had a ultrsasound done on 01/26 while in Triage on 01/26 for c/o bleeding- results reviewed with Dr. Dillon Disposition - Disposition OB Disposition: Discharge to home Discharge Date: 03/16/24 Discharge Time: 00:44 I agree with the RN Medical Screening Exam: Yes Case reviewed; plan agreed upon as documented in EMR&OBIX.: Yes Diagnosis: SPOTTING COMPLICATING , THIRD TRIMESTER
== END 2024-03-16 00:44 | disposition home or self-care (01) ==
LOC: FBPOP 23:05
PROVIDERS: ATTEND Obstetrics & Gynecology
DX: O26.853 Spotting complicating pregnancy, third trimester (principal); Z3A.30 30 weeks gestation of pregnancy
CPT/HCPCS: 36415; 59025; 81001; 87086; 96360; 99214

== ENCOUNTER → 2024-04-18 | Outpatient (CLI) | payer OTHER ==
--- NOTE | 2024-04-18 18:57 | US ---
EXAMINATION TYPE: US OB anatomy transabd DATE OF EXAM: 04/18/2024 COMPARISON: NONE CLINICAL INDICATION: Female, 19 years old with history of Z34.90 ENCNTR FOR SUPRVSN OF NORMAL PREGNAN CY, UNS; Growth TECHNIQUE: Transabdominal (TA) EXAM MEASUREMENTS: GESTATIONAL AGE / DATING Physician Established: (35 weeks/2 days) EDC: 05/21/2024 Dates by LMP: ( weeks/ days) EDC: Dates by First Scan: ( weeks/ days) EDC: Dates by Current Scan for: (35 weeks/1 days) EDC: 05/22/2024 SURVEY IUP: Single PLACENTA: Anterior PREVIA: No previa JONNY: 9.7 cm Normal CERVICAL LENGTH (transabdominal: norm > 3.0cm): 3.2 cm CERVICAL LENGTH (transvaginal: norm> 2.5cm): NA cm (Supplemental transvaginal imaging performed to verify cervical length.) BIOMETRY PRESENTATION: Vertex LIE: Longitudinal BPD: 8.6 cm 34 weeks / 5 days HC: 31.4 cm 35 weeks / 2 days AC: 31.2 cm 35 weeks / 1 days FL: 6.9 cm 35 weeks / 3 days ESTIMATED WEIGHT IN GRAMS: 2611 grams ESTIMATED WEIGHT IN LBS/OZ: 5 lbs. 12 oz. WEIGHT PERCENTAGE BASED ON ESTABLISHED DATE: 44 % HC/AC: 1.01 Normal FL/AC: 22 Normal HEART RATE: 127 bpm RHYTHM: Normal ANATOMY SEEN (within normal limits): Midline Falx Cavus Septi Pellucidi Four Chamber Heart Stomach Situs Nose / Lips other may be a cleft lip present Abnormal. Additional evaluation recommended. Diaphragm ANATOMY SEEN (does not appear within normal limits): ? Cleft Lip IMPRESSION: 1. Single intrauterine gestation estimated at 35 weeks 1 days gestation based on current measurements . Cardiac activity measures 127 bpm. 2. Abnormal appearance to the lips, additional evaluation recommended.
== END | disposition home or self-care (01) ==
LOC: RADUSWWP 15:24
PROVIDERS: ATTEND Obstetrics & Gynecology
DX: Z34.90 Encounter for supervision of normal pregnancy, unspecified, unspecified trimester (principal)
CPT/HCPCS: 76811